=== PATIENT | female | born 1965 | race Caucasian/White ===

== ENCOUNTER 2020-11-19 08:04 | Outpatient (REF) | payer OTHER, SELFPAY ==
[2020-11-19 11:18] LABS: MANUAL DIFF FLAG NO
[2020-11-19 11:25] LABS: Basophils Percent Auto 0.6 % (0-2); Eosinophils Percent Auto 0.6 % (0-4); Hematocrit 41.6 % (37-47); Hemoglobin 13.8 g/dl (12.0-16.0); Lymphocytes Absolute Auto 1.1 X10*3/uL (1.2-4.9); Lymphocytes Percent Auto 33.8 % (20-40); Mean Corpuscular HGB Conc 33.2 g/dl (31.0-35.0); Mean Corpuscular Hemoglobin 29.7 pg (27.0-33.0); Mean Corpuscular Volume 89.5 fL (80-98); Mean Platelet Volume 9.7 fL (9.4-12.3); Monocytes Absolute Auto 0.3 X10*3/uL (0.1-1.2); Monocytes Percent Auto 9.8 % (2-11); Neutrophils Absolute Auto 1.8 X10*3/uL (2.0-8.3); Neutrophils Percent Auto 55.2 % (45-73); Platelet Count 313 X10*3/uL (160-400); Red Blood Count 4.65 X10*6/uL (4.20-5.50); Red Cell Distribution Width 12.7 % (11.0-16.0); White Blood Count 3.3 X10*3/uL (4.8-10.8)
[2020-11-19 11:48] LABS: Alanine Aminotransferase 30 U/L (0-31); Albumin Level 4.5 g/dL (3.5-5.0); Alkaline Phosphatase 91 U/L (39-117); Anion Gap 15 (12-20); Aspartate Amino Transferase 32 U/L (5-31); Bilirubin Total 0.5 mg/dL (0.0-1.0); Blood Urea Nitrogen 9 mg/dL (9-16); Calcium 9.7 mg/dL (8.4-10.2); Carbon Dioxide 25 mmol/L (22-29); Chloride 103 mmol/L (96-108); Estimated Glomerular Filt Rate > 60; Glucose Random 90 mg/dL (60-115); Sodium 139 mmol/L (135-145); Total Protein 8.1 g/dL (6.5-8.0)
== END 2020-11-19 08:05 | disposition home or self-care (01) ==
LOC: HO.HMGCLDS 08:04
PROVIDERS: PCP Internal Medicine; Visit Provider Internal Medicine Medical Oncology
DX: D72.819 Decreased white blood cell count, unspecified (principal)
CPT/HCPCS: 36415; 80053; 85025

== ENCOUNTER 2021-05-23 08:06 | Outpatient (REF) | payer OTHER, SELFPAY ==
[2021-05-23 11:12] LABS: MANUAL DIFF FLAG NO
[2021-05-23 11:42] LABS: Basophils Percent Auto 0.7 % (0-2); Eosinophils Absolute Auto 0.1 X10*3/uL (0.0-0.4); Eosinophils Percent Auto 1.7 % (0-4); Hemoglobin 13.6 g/dl (12.0-16.0); Lymphocytes Percent Auto 34.5 % (20-40); Mean Corpuscular HGB Conc 33.2 g/dl (31.0-35.0); Mean Corpuscular Hemoglobin 29.2 pg (27.0-33.0); Mean Corpuscular Volume 88.2 fL (80-98); Mean Platelet Volume 9.6 fL (9.4-12.3); Monocytes Absolute Auto 0.3 X10*3/uL (0.1-1.2); Monocytes Percent Auto 10.5 % (2-11); Neutrophils Absolute Auto 1.5 X10*3/uL (2.0-8.3); Neutrophils Percent Auto 52.6 % (45-73); Platelet Count 288 X10*3/uL (160-400); Red Blood Count 4.65 X10*6/uL (4.20-5.50); Red Cell Distribution Width 13.1 % (11.0-16.0); White Blood Count 2.9 X10*3/uL (4.8-10.8)
[2021-05-23 11:57] LABS: Alanine Aminotransferase 21 U/L (0-31); Albumin Level 4.4 g/dL (3.5-5.0); Alkaline Phosphatase 84 U/L (39-117); Anion Gap 15 (12-20); Aspartate Amino Transferase 23 U/L (5-31); Bilirubin Total 0.5 mg/dL (0.0-1.0); Blood Urea Nitrogen 9 mg/dL (9-16); Calcium 10.1 mg/dL (8.4-10.2); Carbon Dioxide 22 mmol/L (22-29); Chloride 103 mmol/L (96-108); Estimated Glomerular Filt Rate > 60; Glucose Random 91 mg/dL (60-115); Potassium 4.3 mmol/L (3.3-5.1); Sodium 136 mmol/L (135-145); Total Protein 7.9 g/dL (6.5-8.0)
== END 2021-05-23 08:07 | disposition home or self-care (01) ==
LOC: HO.HMGCLDS 08:06
PROVIDERS: PCP Internal Medicine; Visit Provider Internal Medicine Medical Oncology
DX: D72.819 Decreased white blood cell count, unspecified (principal)
CPT/HCPCS: 36415; 80053; 85025

== ENCOUNTER 2021-08-19 08:08 | Outpatient (REF) | payer OTHER, SELFPAY ==
--- NOTE | ~2021-08-19 | MM_ITS ---
EXAMINATION: MM SCREENING DIGITAL BREAST TOMOSYNTHESIS, BILATERAL CLINICAL INFORMATION: Screening. Asymptomatic. The lifetime risk of breast cancer based on the Tyrer-Cuzick Model is 8%. COMPARISON: Mammography: 08/15/2020, 02/01/2020, 07/25/2019, 07/19/2019 TECHNIQUE: Digital breast tomosynthesis is performed in both the craniocaudal and mediolateral oblique views along with computer-aided detection (CAD). Synthesized 2D images are generated from the tomosynthesis. FINDINGS: The breasts are extremely dense, which lowers the sensitivity of mammography (ACR BI-RADS breast composition Category d). There are no significant masses, abnormal calcifications, or other abnormalities. Parenchymal pattern is similar to prior studies. Again, there are scattered bilateral benign round coarse and vascular calcifications. No significant changes. MM/MM tomosynthesis screening BI IMPRESSION: No mammographic evidence of malignancy. ASSESSMENT: BI-RADS 2: Benign RECOMMENDATION: Routine annual mammography screening. This patient's information was entered into a reminder system with a target due date for their next mammogram.
== END 2021-08-19 08:09 | disposition home or self-care (01) ==
LOC: HO.MAMMO 08:08
PROVIDERS: PCP Internal Medicine; Visit Provider Internal Medicine
DX: Z12.31 Encounter for screening mammogram for malignant neoplasm of breast (principal)
CPT/HCPCS: 77063; 77067

== ENCOUNTER 2021-10-24 06:22 | Outpatient (REF) | payer OTHER, SELFPAY ==
[2021-10-24 11:54] LABS: MANUAL DIFF FLAG NO
[2021-10-24 11:59] LABS: Basophils Percent Auto 0.8 % (0-2); Eosinophils Percent Auto 0.4 % (0-4); Hematocrit 40.9 % (37.0-47.0); Hemoglobin 13.2 g/dl (12.0-16.0); Lymphocytes Absolute Auto 0.9 X10*3/uL (1.2-4.9); Lymphocytes Percent Auto 35.8 % (20-40); Mean Corpuscular HGB Conc 32.3 g/dl (31.0-35.0); Mean Corpuscular Hemoglobin 28.9 pg (27.0-33.0); Mean Corpuscular Volume 89.7 fL (80.0-98.0); Mean Platelet Volume 9.8 fL (9.4-12.3); Monocytes Absolute Auto 0.3 X10*3/uL (0.1-1.2); Monocytes Percent Auto 11.9 % (2-11); Neutrophils Absolute Auto 1.3 x10*3/uL (2.0-8.3); Neutrophils Percent Auto 51.1 % (45-73); Platelet Count 266 X10*3/uL (160-400); Red Blood Count 4.56 X10*6/uL (4.20-5.50); Red Cell Distribution Width 12.6 % (11.0-16.0); White Blood Count 2.6 X10*3/uL (4.8-10.8)
[2021-10-24 12:29] LABS: Thyroid Stimulating Hormone 2.95 uIU/mL (0.32-4.0); Vitamin D 25-OH Total 38.7 ng/mL (>30)
[2021-10-24 12:34] LABS: Alanine Aminotransferase 31 U/L (0-31); Albumin Level 4.3 g/dL (3.5-5.0); Alkaline Phosphatase 71 U/L (39-117); Anion Gap 12 (12-20); Aspartate Amino Transferase 28 U/L (5-31); Bilirubin Total 0.7 mg/dL (0.0-1.0); Blood Urea Nitrogen 11 mg/dL (9-16); Calcium 9.9 mg/dL (8.4-10.2); Carbon Dioxide 25 mmol/L (22-29); Chloride 107 mmol/L (96-108); Cholesterol 226 mg/dL; Estimated Glomerular Filt Rate > 60; Glucose Fasting 86 mg/dL (60-99); HDL Cholesterol 79 mg/dL; LDL Cholesterol Calculated 140 mg/dl; Potassium 4.4 mmol/L (3.3-5.1); Sodium 140 mmol/L (135-145); Total Protein 7.5 g/dL (6.5-8.0); Triglycerides 38 mg/dL
== END 2021-10-24 06:23 | disposition home or self-care (01) ==
LOC: HO.HMGCLDS 06:22
PROVIDERS: PCP Internal Medicine; Visit Provider Internal Medicine
DX: Z00.00 Encounter for general adult medical examination without abnormal findings (principal)
CPT/HCPCS: 36415; 80053; 80061; 82306; 84443; 85025

== ENCOUNTER 2021-11-27 08:11 | Outpatient (REF) | payer OTHER, SELFPAY ==
[2021-11-27 11:08] LABS: MANUAL DIFF FLAG NO
[2021-11-27 11:25] LABS: Basophils Absolute Auto 0.1 X10*3/uL (0.0-0.2); Basophils Percent Auto 1.5 % (0-2); Eosinophils Percent Auto 0.3 % (0-4); Hemoglobin 13.5 g/dl (12.0-16.0); Imm Gran Abs Auto 0.01 X10*3/uL (0.00-0.03); Imm Gran Pct Auto 0.3 % (0.0-0.4); Lymphocytes Absolute Auto 1.7 X10*3/uL (1.2-4.9); Lymphocytes Percent Auto 51.9 % (20-40); Mean Corpuscular HGB Conc 32.9 g/dl (31.0-35.0); Mean Corpuscular Hemoglobin 29.2 pg (27.0-33.0); Mean Corpuscular Volume 88.6 fL (80.0-98.0); Mean Platelet Volume 9.4 fL (9.4-12.3); Monocytes Absolute Auto 0.4 X10*3/uL (0.1-1.2); Monocytes Percent Auto 11.6 % (2-11); Neutrophils Absolute Auto 1.2 x10*3/uL (2.0-8.3); Neutrophils Percent Auto 34.4 % (45-73); Platelet Count 327 X10*3/uL (160-400); Red Blood Count 4.63 X10*6/uL (4.20-5.50); Red Cell Distribution Width 12.6 % (11.0-16.0); White Blood Count 3.4 X10*3/uL (4.8-10.8)
== END 2021-11-27 08:12 | disposition home or self-care (01) ==
LOC: HO.HMGCLDS 08:11
PROVIDERS: PCP Internal Medicine; Visit Provider Internal Medicine Medical Oncology
DX: D72.819 Decreased white blood cell count, unspecified (principal)
CPT/HCPCS: 36415; 85025

== ENCOUNTER → 2021-12-25 08:15 | Outpatient (REF) | payer OTHER, SELFPAY ==
--- NOTE | 2021-12-25 08:19 | CA_ITS ---
Transthoracic Echocardiogram Patient (Last, First, Middle): Zhanna Carter E Gender: Female Date of : 1965 Age: 56 Procedure Date: 12/25/2021 Procedure Type: Transthoracic Echocardiogram Location: OP Height: 172.72 cm Weight: 63.5 kg BSA: 1.76 m2 Heart Rate: bpm BP: 126 / 80 mmHg Nutritional Assistant: MAYKEL Referring MD: Jose Montgomery MD Symptoms: R42 DIZZINESS R00.2 PALPITATIONS Study Quality: Good ECG Rhythm: Sinus Conclusions: - The left ventricular systolic function is normal. The calculated ejection fraction is 71% by biplane method. - No obvious valvular pathology seen on this study. Findings Left Ventricle Normal left ventricular cavity size. There is normal left ventricular wall thickness. The left ventricular systolic function is normal. The calculated ejection fraction is 71% by biplane method. There is no evidence of regional wall motion abnormalities. Diastolic function is normal for age. Right Ventricle Normal right ventricular cavity size and systolic function. Atria Both atria are normal in size. Aortic Valve There is a normal trileaflet aortic valve. There is no aortic valve stenosis. There is trace (trivial) aortic valve regurgitation. Mitral Valve There is moderate mitral annular calcification. There is trace mitral valve regurgitation. There is no mitral valve stenosis. Pulmonic Valve The pulmonic valve was not well visualized. Tricuspid Valve There is trace tricuspid valve regurgitation. The pulmonary artery systolic pressure is normal. Great Vessels The aortic annulus, sinuses of valsalva, and asc aorta are normal in size. Venous The inferior vena cava is normal in size and collapses greater than 50% with inspiration. Pericardium/Pleural There is no evidence of pericardial effusion. Prior Study Comparison No prior study available for comparison. Recommendations, Care & Conclusions No obvious valvular pathology seen on this study. Measurements 2D Linear Measurements IVSd: 0.77 0.6-0.9/0.6-1.0 cm LVIDd: 4.25 3.9-5.3/4.2-5.9 cm LVIDd Index: 2.41 2.4-3.2/2.2-3.1 cm/m2 LVIDs: 2.75 2.0-3.6 cm LVPWd: 0.68 0.7-1.1 cm LA Diam: 2.80 2.7-3.8/3.0-4.0 cm LAIDs Index: 1.59 1.5-2.3 cm/m2 LV Mass: 113.27 67-162/88-224 g LV Mass Index: 64.36 43-95/49-115 g/m2 LVOT Diam: 2.00 3.0+(-)1.3 cm 2D Systolic Function EF 4C: 71.40 >55% EF 2C: 70.20 >55% EF BiP: 70.60 >55% Mitral Valve MV Pk E: 0.61 MV PK A: 0.91 MV Decel Time: 122.00 E/A: 0.70 E'Lateral: 11.10 E'Medial: 9.68 E/E' Med: 6.30 E/E' Lat: 5.50 PHT: 36.00 MVA PHT: 6.11 Decel Motley: 4.97 Aortic Valve AoV Pk Flaquito: 1.40 AoV Pk Grad: 8.00 LVOT LVOT Pk Flaquito: 1.34 LVOT Mn Flaquito: 0.91 LVOT VTI: 0.29 LVOT Pk Grad: 7.00 LVOT Mn Grad: 4.00 LVOT Diam: 2.00 LVOT Area: 3.14 Diastolic Function MV Pk E: 0.61 MV Pk A: 0.91 E/A: 0.70 E'Medial: 9.68 E/E' Med: 6.30 E' Laterial: 11.10 E/E' Lat: 5.50 Right Ventricle TAPSE (mm): 2.30 TVS' Flaquito: 14.00 Tricuspid Valve TR Pk Flaquito: 2.35 TR Pk Grad: 22.00 RA Press: 3.00 RVSP: 25.00 Great Vessels Aorta Ao Asc: 2.80 2.1-3.4 cm Updated in Other Vendor System with Status of Final Eliseo Portillo MD electronically signed on 12/27/2021 11:44:31 AM with status of Final
== END ==
LOC: HO.CARD 08:15
PROVIDERS: PCP Internal Medicine; Visit Provider Internal Medicine
DX: R42 Dizziness and giddiness (principal)
CPT/HCPCS: 93306

== ENCOUNTER 2022-05-27 06:36 | Outpatient (REF) | payer OTHER, SELFPAY ==
[2022-05-27 11:29] LABS: MANUAL DIFF FLAG NO
[2022-05-27 11:39] LABS: Basophils Percent Auto 0.8 % (0-2); Eosinophils Percent Auto 0.8 % (0-4); Hematocrit 40.4 % (37.0-47.0); Imm Gran Abs Auto 0.01 X10*3/uL (0.00-0.03); Imm Gran Pct Auto 0.4 % (0.0-0.4); Lymphocytes Absolute Auto 0.8 X10*3/uL (1.2-4.9); Lymphocytes Percent Auto 31.1 % (20-40); Mean Corpuscular HGB Conc 32.2 g/dl (31.0-35.0); Mean Corpuscular Hemoglobin 28.5 pg (27.0-33.0); Mean Corpuscular Volume 88.6 fL (80.0-98.0); Mean Platelet Volume 9.7 fL (9.4-12.3); Monocytes Absolute Auto 0.3 X10*3/uL (0.1-1.2); Monocytes Percent Auto 11.7 % (2-11); Neutrophils Absolute Auto 1.4 x10*3/uL (2.0-8.3); Neutrophils Percent Auto 55.2 % (45-73); Platelet Count 274 X10*3/uL (160-400); Red Blood Count 4.56 X10*6/uL (4.20-5.50); Red Cell Distribution Width 12.8 % (11.0-16.0); White Blood Count 2.6 X10*3/uL (4.8-10.8)
[2022-05-27 12:39] LABS: Alanine Aminotransferase 20 U/L (0-31); Albumin Level 4.3 g/dL (3.5-5.0); Alkaline Phosphatase 70 U/L (39-117); Anion Gap 12 (12-20); Aspartate Amino Transferase 22 U/L (5-31); Bilirubin Total 0.5 mg/dL (0.0-1.0); Blood Urea Nitrogen 12 mg/dL (9-16); Calcium 9.7 mg/dL (8.4-10.2); Carbon Dioxide 26 mmol/L (22-29); Chloride 104 mmol/L (96-108); Estimated Glomerular Filt Rate > 60; Glucose Random 83 mg/dL (60-115); Potassium 4.6 mmol/L (3.3-5.1); Sodium 137 mmol/L (135-145); Total Protein 7.6 g/dL (6.5-8.0)
== END 2022-05-27 06:37 | disposition home or self-care (01) ==
LOC: HO.HMGCLDS 06:36
PROVIDERS: Visit Provider Internal Medicine Medical Oncology
DX: D72.819 Decreased white blood cell count, unspecified (principal)
CPT/HCPCS: 36415; 80053; 85025

== ENCOUNTER 2022-08-21 08:07 | Outpatient (REF) | payer OTHER, SELFPAY ==
--- NOTE | ~2022-08-21 | MM_ITS ---
EXAMINATION: MM SCREENING DIGITAL BREAST TOMOSYNTHESIS, BILATERAL CLINICAL INFORMATION: Screening. Asymptomatic. The lifetime risk of breast cancer based on the Tyrer-Cuzick Model is 8%. COMPARISON: Mammography: 08/19/2021, 08/15/2020, 02/01/2020, 07/25/2019, 07/19/2019 TECHNIQUE: Digital breast tomosynthesis is performed in both the craniocaudal and mediolateral oblique views along with computer-aided detection (CAD). Synthesized 2D images are generated from the tomosynthesis. Additional left MLO view is provided. FINDINGS: The breasts are extremely dense, which lowers the sensitivity of mammography (ACR BI-RADS breast composition Category d). There are no significant masses, abnormal calcifications, or other abnormalities. There is no developing density or interval architectural abnormality. Scattered bilateral vascular, round, coarse calcifications are again seen. The axilla are unremarkable. No significant changes. MM/MM tomosynthesis screening BI IMPRESSION: No mammographic evidence of malignancy. ASSESSMENT: BI-RADS 2: Benign RECOMMENDATION: Routine annual mammography screening. This patient's information was entered into a reminder system with a target due date for their next mammogram.
== END 2022-08-21 08:08 | disposition home or self-care (01) ==
LOC: HO.MAMMO 08:07
PROVIDERS: PCP Internal Medicine; Visit Provider Internal Medicine
DX: Z12.31 Encounter for screening mammogram for malignant neoplasm of breast (principal)
CPT/HCPCS: 77063; 77067

== ENCOUNTER 2022-10-29 06:31 | Outpatient (REF) | payer OTHER, SELFPAY ==
[2022-10-29 11:47] LABS: Cholesterol 209 mg/dL; HDL Cholesterol 73 mg/dL; LDL Cholesterol Calculated 126 mg/dl; Triglycerides 51 mg/dL
[2022-10-29 12:03] LABS: Vitamin D 25-OH Total 47.1 ng/mL (>30)
== END 2022-10-29 06:32 | disposition home or self-care (01) ==
LOC: HO.HMGCLDS 06:31
PROVIDERS: PCP Internal Medicine; Visit Provider Internal Medicine
DX: E55.9 Vitamin D deficiency, unspecified (principal); E78.00 Pure hypercholesterolemia, unspecified; I10 Essential (primary) hypertension
CPT/HCPCS: 36415; 80061; 82306

== ENCOUNTER 2022-12-01 09:24 | Outpatient (REF) | payer OTHER, SELFPAY ==
[2022-12-01 10:35] LABS: MANUAL DIFF FLAG NO
[2022-12-01 10:40] LABS: Basophils Percent Auto 1.3 % (0-2); Eosinophils Percent Auto 0.9 % (0-4); Hematocrit 39.7 % (37.0-47.0); Hemoglobin 13.1 g/dl (12.0-16.0); Imm Gran Abs Auto 0.01 X10*3/uL (0.00-0.03); Imm Gran Pct Auto 0.3 % (0.0-0.4); Lymphocytes Absolute Auto 0.8 X10*3/uL (1.2-4.9); Lymphocytes Percent Auto 25.3 % (20-40); Mean Corpuscular Hemoglobin 28.9 pg (27.0-33.0); Mean Corpuscular Volume 87.4 fL (80.0-98.0); Mean Platelet Volume 9.2 fL (9.4-12.3); Monocytes Absolute Auto 0.3 X10*3/uL (0.1-1.2); Monocytes Percent Auto 8.8 % (2-11); Neutrophils Percent Auto 63.4 % (45-73); Platelet Count 289 X10*3/uL (160-400); Red Blood Count 4.54 X10*6/uL (4.20-5.50); Red Cell Distribution Width 12.7 % (11.0-16.0); White Blood Count 3.2 X10*3/uL (4.8-10.8)
[2022-12-01 11:39] LABS: Alanine Aminotransferase 31 U/L (0-31); Albumin Level 4.3 g/dL (3.5-5.0); Alkaline Phosphatase 71 U/L (39-117); Anion Gap 10 (12-20); Aspartate Amino Transferase 27 U/L (5-31); Bilirubin Total 0.4 mg/dL (0.0-1.0); Blood Urea Nitrogen 11 mg/dL (9-16); Calcium 10.1 mg/dL (8.4-10.2); Carbon Dioxide 27 mmol/L (22-29); Chloride 103 mmol/L (96-108); Estimated Glomerular Filt Rate > 60; Glucose Random 99 mg/dL (60-115); Potassium 4.3 mmol/L (3.3-5.1); Sodium 136 mmol/L (135-145); Total Protein 7.6 g/dL (6.5-8.0)
== END 2022-12-01 09:25 | disposition home or self-care (01) ==
LOC: HO.10HDL 09:24
PROVIDERS: Visit Provider Internal Medicine Medical Oncology
DX: D72.819 Decreased white blood cell count, unspecified (principal)
CPT/HCPCS: 36415; 80053; 85025

== ENCOUNTER 2023-03-15 06:44 | Day surgery (SDC) | payer OTHER, SELFPAY ==
[2023-03-15 06:46] VITALS: BMI 21.2
[2023-03-15 06:48] VITALS: BP 152/77; PULSE 102; RESP 16; TEMP 36.3; O2SAT 99
--- NOTE | 2023-03-15 07:35 | P.CONAN_ITS ---
HPI - Anesthesia Eval Consult details Narrative: for screening [facility], [facility] Past Medical History Medical History (Updated 03/12/23 @ 13:38 by Sheela Nieves RN) HTN (hypertension) Family History Family history of problems with anesthesia: No Surgical History History of Problems with Anesthesia: No Social History Social History Patient Tobacco Use Status: Never used Tobacco Use of substances other than those prescribed or required for medical reasons: No Advance Directives: No Advance Directives Information Provided: Yes Meds Allergies Allergy/AdvReac Type Severity Reaction Status Date / Time No Known Allergies Allergy Unverified 08/08/20 14:44 Active Medications: Current Medications Sodium Biphosphate/Sodium Phosphate (Sodium Phosphate,Hidalgo-Dibasic 133 Ml Enema) 133 ml VT ONCE PRN PRN Reason: Poor Colonoscopy Prep Results Home Medications Medication Instructions Recorded Confirmed Last Taken Type amlodipine 2.5 mg tablet 2.5 mg PO DAILY 03/12/23 03/12/23 Unknown History Exam Exam Date and Time: March 15, 2023 0735 Height,Weight and Vital Signs: Height 5 ft 8 in Weight 63.503 kg Last Vital Signs Temp 97.3 F 03/15/23 06:48 Pulse 102 H 03/15/23 06:48 Resp 16 03/15/23 06:48 BP 152/77 H 03/15/23 06:48 Pulse Ox 99 03/15/23 06:48 O2 Del Method Room Air 03/15/23 06:48 Airway Mallampati Class: II TM Dist: >3cm Neck ROM: Full Heart: rrr Lungs: cta Assessment and Plan Assessment Anesthesia Assessment: Anesthesia Plan Discussed and Chart Reviewed Final Anesthetic Review Family History of Problems with Anesthesia: No History of Problems with Anesthesia: No NPO: Yes ASA Class: II Final Preanesthetic Review: No Changes in Pt Med Stat, Meds/Allgs Chart Reviewed, Consent Obtained/Reviewed and Anes Risks/Benef Reviewed Patient Risk: Low Procedure Risk: Low Anesthetic Plan Anesthetic Plan: MAC: Disposition: Standard PACU
--- NOTE | 2023-03-15 08:33 | P.BOP_ITS ---
Brief Operative Note Date of Service: 03/15/23 Pre-op diagnosis: Screening Post-op diagnosis: other (Colon polyp) Procedure: Colonoscopy to the cecum and TI with biopsy and removal of polyp Surgeon: Anderson Mccall Anesthesia: MAC Was an [employer] used for this Procedure?: No Estimated blood loss (mL): 2.0 Pathology: other (A. Ascending colon polyp) Condition: stable Disposition: PACU
[2023-03-15 08:34] VITALS: BP 114/73; PULSE 84; RESP 17; TEMP 36.6; O2SAT 100
[2023-03-15 08:49] VITALS: BP 124/80; PULSE 77; RESP 16; TEMP 36.6; O2SAT 97
--- NOTE | 2023-03-15 10:11 | OP_ITS ---
DATE OF SERVICE: 03/15/2023 SURGEON: Anderson Mccall MD INDICATIONS: The patient presents for evaluation of colorectal cancer screening. Full consent has been obtained from her for this, including risks of bleeding and perforation. PREOPERATIVE DIAGNOSIS: Colorectal cancer screening. POSTOPERATIVE DIAGNOSIS: PROCEDURE PERFORMED: Colonoscopy to the cecum and terminal ileum with biopsy and removal of polyp ESTIMATED BLOOD LOSS: COMPLICATIONS: ANESTHESIA: Monitored anesthesia care. ASSISTANTS: SPECIMENS: POSTOPERATIVE DIAGNOSES: Colorectal cancer screening, small colon polyp, sigmoid diverticulosis and internal hemorrhoids. DESCRIPTION OF PROCEDURE: The patient was placed in the left lateral decubitus position. The digital rectal exam revealed no abnormalities. The Olympus video pediatric colonoscope was entered into the rectum and advanced to the cecum. Advancement past the sigmoid colon was somewhat difficult. Once in the cecum, I did identify normal-appearing cecal pouch with appendiceal orifice and a normal-appearing ileocecal valve. The terminal ileum was cannulated and appeared normal. The scope was withdrawn back in the colon. The entire cecum and ileocecal valve appeared normal. There was transillumination of light deep in the right lower quadrant. The scope was then slowly withdrawn assessing all mucosal surfaces carefully. Preparation was excellent. In the ascending colon was a 3 mm polyp which was biopsied and completely removed with cold biopsy forceps. I did not visualize any other polyps, colitis, nor angiodysplasia. There was a mild amount of sigmoid diverticulosis. In the rectum, the scope was retroflexed visualizing internal hemorrhoids, but no other pathology. The rectal mucosa appeared normal. The scope was straightened out and withdrawn from the patient. She tolerated the procedure well and was returned to the recovery area in stable condition. IMPRESSION: 1. Small colon polyp. 2. Sigmoid diverticulosis. 3. Internal hemorrhoids. PLAN: The results of the pathology will be checked. If this is a tubular adenoma, I would recommend a followup coloscopy in 5 years. If it is only hyperplastic, I recommend followup colonoscopy in 10 years. She will otherwise see me on a p.r.n. basis. MD MELISSA Jones/KHOI / [id number]
== END 2023-03-15 09:27 | disposition home or self-care (01) ==
PROVIDERS: PCP Internal Medicine; Visit Provider Internal Medicine
PROC: 0DJD8ZZ Inspection of Lower Intestinal Tract, Via Natural or Artificial Opening Endoscopic (ICD-10-PCS; CPT 45378; principal; 2023-03-15 07:30)
DX: Z12.11 Encounter for screening for malignant neoplasm of colon (principal); K63.5 Polyp of colon; K57.30 Diverticulosis of large intestine without perforation or abscess without bleeding; K64.8 Other hemorrhoids; K59.00 Constipation, unspecified; I10 Essential (primary) hypertension; Z79.899 Other long term (current) drug therapy
CPT/HCPCS: 45380; 88305; J2250

== ENCOUNTER 2023-07-20 07:00 | Outpatient (REF) | payer OTHER, SELFPAY ==
[2023-07-20 11:31] LABS: MANUAL DIFF FLAG NO
[2023-07-20 12:00] LABS: Basophils Percent Auto 0.8 % (0-2); Hemoglobin 12.2 g/dl (12.0-16.0); Lymphocytes Absolute Auto 0.7 X10*3/uL (1.2-4.9); Lymphocytes Percent Auto 27.8 % (20-40); Mean Corpuscular HGB Conc 32.1 g/dl (31.0-35.0); Mean Corpuscular Hemoglobin 28.6 pg (27.0-33.0); Mean Corpuscular Volume 89.2 fL (80.0-98.0); Mean Platelet Volume 8.9 fL (9.4-12.3); Monocytes Absolute Auto 0.5 X10*3/uL (0.1-1.2); Monocytes Percent Auto 17.4 % (2-11); Neutrophils Absolute Auto 1.4 x10*3/uL (2.0-8.3); Platelet Count 402 X10*3/uL (160-400); Red Blood Count 4.26 X10*6/uL (4.20-5.50); Red Cell Distribution Width 13.8 % (11.0-16.0); White Blood Count 2.6 X10*3/uL (4.8-10.8)
[2023-07-20 12:19] LABS: Alanine Aminotransferase 68 U/L (0-31); Albumin Level 4.1 g/dL (3.5-5.0); Alkaline Phosphatase 71 U/L (39-117); Anion Gap 11 (12-20); Aspartate Amino Transferase 37 U/L (5-31); Bilirubin Total 0.6 mg/dL (0.0-1.0); Blood Urea Nitrogen 10 mg/dL (9-16); Calcium 9.7 mg/dL (8.4-10.2); Carbon Dioxide 24 mmol/L (22-29); Chloride 105 mmol/L (96-108); Estimated Glomerular Filt Rate > 60; Glucose Random 83 mg/dL (60-115); Potassium 4.6 mmol/L (3.3-5.1); Sodium 135 mmol/L (135-145); Total Protein 7.4 g/dL (6.5-8.0)
== END 2023-07-20 07:01 | disposition home or self-care (01) ==
LOC: HO.HMGCLDS 07:00
PROVIDERS: PCP Internal Medicine; Visit Provider Internal Medicine Medical Oncology
DX: D72.819 Decreased white blood cell count, unspecified (principal)
CPT/HCPCS: 36415; 80053; 85025

== ENCOUNTER 2023-08-23 08:04 | Outpatient (REF) | payer OTHER, SELFPAY ==
--- NOTE | ~2023-08-23 | MM_ITS ---
EXAMINATION: MM SCREENING DIGITAL BREAST TOMOSYNTHESIS, BILATERAL CLINICAL INFORMATION: Screening. Asymptomatic. COMPARISON: Mammography: 08/21/2022, 08/19/2021, 08/15/2020, 02/01/2020, 07/25/2019, 07/19/2019 TECHNIQUE: Digital breast tomosynthesis is performed in both the craniocaudal and mediolateral oblique views along with computer-aided detection (CAD). Synthesized 2D images are generated from the tomosynthesis. FINDINGS: The breasts are extremely dense, which lowers the sensitivity of mammography (ACR BI-RADS breast composition Category d). There are benign vascular and benign scattered dystrophic calcifications in both breasts right greater than left. None of these is undergone suspicious or aggressive change. No developing masses, or developing regions of parenchymal distortion. MM/MM tomosynthesis screening BI IMPRESSION: No mammographic evidence of malignancy. Stable benign findings. ASSESSMENT: BI-RADS BI-RADS 2 - Benign Findings RECOMMENDATION: Routine annual mammography screening. 1 year F/U This examination should not preclude the clinical evaluation of a suspicious palpable abnormality. This patient's information was entered into a reminder system with a target due date for their next mammogram.
== END 2023-08-23 08:05 | disposition home or self-care (01) ==
LOC: HO.MAMMO 08:04
PROVIDERS: PCP Internal Medicine; Visit Provider Internal Medicine
DX: Z12.31 Encounter for screening mammogram for malignant neoplasm of breast (principal)
CPT/HCPCS: 77063; 77067

== ENCOUNTER → 2023-08-23 08:15 | Outpatient (BNV) | payer OTHER, SELFPAY | PROVIDERS: PCP Internal Medicine; Visit Provider Radiology Diagnostic Radiology | DX: Z12.31 Encounter for screening mammogram for malignant neoplasm of breast (principal) | CPT/HCPCS: 77063; 77067 ==

== ENCOUNTER 2023-12-09 06:31 | Outpatient (REF) | payer OTHER, SELFPAY ==
[2023-12-09 08:15] LABS: Alanine Aminotransferase 45 U/L (0-31); Albumin Level 4.1 g/dL (3.5-5.0); Alkaline Phosphatase 71 U/L (39-117); Anion Gap 11 (12-20); Aspartate Amino Transferase 42 U/L (5-31); Bilirubin Total 0.4 mg/dL (0.0-1.0); Blood Urea Nitrogen 12 mg/dL (9-16); Calcium 9.9 mg/dL (8.4-10.2); Carbon Dioxide 26 mmol/L (22-29); Chloride 103 mmol/L (96-108); Cholesterol 218 mg/dL (<200); Estimated Glomerular Filt Rate > 60; Glucose Fasting 92 mg/dL (60-99); HDL Cholesterol 61 mg/dL (>40); LDL Cholesterol Calculated 146 mg/dL (<100); Potassium 4.1 mmol/L (3.3-5.1); Sodium 136 mmol/L (135-145); Total Protein 7.9 g/dL (6.5-8.0); Triglycerides 55 mg/dL (<150)
== END 2023-12-09 06:32 | disposition home or self-care (01) ==
LOC: HO.LAB 06:31
PROVIDERS: PCP Internal Medicine; Visit Provider Internal Medicine
DX: E78.00 Pure hypercholesterolemia, unspecified (principal); I10 Essential (primary) hypertension
CPT/HCPCS: 36415; 80053; 80061

== ENCOUNTER 2024-01-18 06:12 | Outpatient (REF) | payer OTHER, SELFPAY ==
[2024-01-18 10:37] LABS: Basophils Percent Auto 0.5 % (0-2); Eosinophils Percent Auto 1.1 % (0-4); Hematocrit 41.4 % (37.0-47.0); Hemoglobin 13.5 g/dl (12.0-16.0); Lymphocytes Absolute Auto 0.6 X10*3/uL (1.2-4.9); MANUAL DIFF FLAG SCAN; Mean Corpuscular HGB Conc 32.6 g/dl (31.0-35.0); Mean Corpuscular Hemoglobin 28.7 pg (27.0-33.0); Mean Corpuscular Volume 88.1 fL (80.0-98.0); Mean Platelet Volume 9.6 fL (9.4-12.3); Monocytes Absolute Auto 0.3 X10*3/uL (0.1-1.2); Monocytes Percent Auto 13.5 % (2-11); Neutrophils Percent Auto 51.9 % (45-73); Platelet Count 262 X10*3/uL (160-400); Red Cell Distribution Width 12.8 % (11.0-16.0); SCAN SMEAR FLAG 1
[2024-01-18 10:38] LABS: White Blood Count 1.9 X10*3/uL (4.8-10.8)
[2024-01-18 11:09] LABS: SLIDE REVIEW VERIFIED
[2024-01-18 11:22] LABS: Alanine Aminotransferase 48 U/L (0-31); Albumin Level 4.1 g/dL (3.5-5.0); Alkaline Phosphatase 67 U/L (39-117); Anion Gap 11 (12-20); Aspartate Amino Transferase 38 U/L (5-31); Bilirubin Total 0.5 mg/dL (0.0-1.0); Blood Urea Nitrogen 11 mg/dL (9-16); Calcium 9.8 mg/dL (8.4-10.2); Carbon Dioxide 26 mmol/L (22-29); Chloride 103 mmol/L (96-108); Estimated Glomerular Filt Rate > 60; Glucose Random 82 mg/dL (60-115); Potassium 4.2 mmol/L (3.3-5.1); Sodium 136 mmol/L (135-145); Total Protein 7.8 g/dL (6.5-8.0)
== END 2024-01-18 06:13 | disposition home or self-care (01) ==
LOC: HO.HMGCLDS 06:12
PROVIDERS: PCP Internal Medicine; Visit Provider Internal Medicine Medical Oncology
DX: D72.818 Other decreased white blood cell count (principal)
CPT/HCPCS: 36415; 80053; 85025

== ENCOUNTER 2024-02-11 08:16 | Outpatient (REF) | payer OTHER, SELFPAY ==
--- NOTE | ~2024-02-11 | US_ITS ---
EXAMINATION: US ABDOMEN COMPLETE CLINICAL INFORMATION: Splenomegaly. COMPARISON: Ultrasound abdomen 10/23/2015. TECHNIQUE: Real-time imaging of the abdominal viscera. FINDINGS: PANCREAS: Normal. ABDOMINAL AORTA: The proximal, mid, and distal segments are normal in caliber. INFERIOR VENA CAVA: Visualized portions are normal. LIVER: Normal size, contour and echotexture. No evidence of focal liver lesion or intrahepatic ductal dilatation. GALLBLADDER: Normal. The gallbladder is physiologically distended without evidence of stones, sludge, polyps, wall thickening or pericholecystic fluid. COMMON BILE DUCT: Normal in caliber measuring 0.5 cm in diameter. RIGHT KIDNEY: Normal. No hydronephrosis. No renal calculi or focal parenchymal lesions. The kidney measures 11.6 cm in maximum dimension. LEFT KIDNEY: Normal. No hydronephrosis. No renal calculi or focal parenchymal lesions. The kidney measures 11.2 cm in maximum dimension. SPLEEN: Normal. The spleen measures 10.3 cm in maximum dimension. FREE FLUID: None. US/US abdomen complete IMPRESSION: Normal ultrasound examination of the abdomen. No evidence of splenomegaly.
== END 2024-02-11 08:17 | disposition home or self-care (01) ==
LOC: HO.US 08:16
PROVIDERS: PCP Internal Medicine; Visit Provider Internal Medicine Medical Oncology
DX: D72.819 Decreased white blood cell count, unspecified (principal); Z86.2 Personal history of diseases of the blood and blood-forming organs and certain disorders involving the immune mechanism
CPT/HCPCS: 76700

== ENCOUNTER 2024-02-28 10:31 | Outpatient (REF) | payer OTHER, SELFPAY ==
[2024-02-28 13:33] LABS: C Reactive Protein < 0.10 mg/dL (< or = 0.50)
[2024-02-28 13:59] LABS: Erythrocyte Sedimentation Rate 11 MM/HR (0-20)
== END 2024-02-28 10:32 | disposition home or self-care (01) ==
LOC: HO.10HDL 10:31
PROVIDERS: Visit Provider Internal Medicine
DX: M79.10 Myalgia, unspecified site (principal); I73.00 Raynaud's syndrome without gangrene; L93.0 Discoid lupus erythematosus
CPT/HCPCS: 36415; 82550; 85652; 86140

== ENCOUNTER 2024-03-21 06:54 | Outpatient (REF) | payer OTHER, SELFPAY ==
[2024-03-21 10:38] LABS: Eosinophils Percent Auto 0.5 % (0-4); Hematocrit 38.5 % (37.0-47.0); Hemoglobin 12.9 g/dl (12.0-16.0); Lymphocytes Absolute Auto 0.6 X10*3/uL (1.2-4.9); Lymphocytes Percent Auto 28.8 % (20-40); MANUAL DIFF FLAG SCAN; Mean Corpuscular HGB Conc 33.5 g/dl (31.0-35.0); Mean Corpuscular Hemoglobin 29.5 pg (27.0-33.0); Mean Corpuscular Volume 87.9 fL (80.0-98.0); Mean Platelet Volume 9.8 fL (9.4-12.3); Monocytes Absolute Auto 0.3 X10*3/uL (0.1-1.2); Monocytes Percent Auto 15.2 % (2-11); Neutrophils Percent Auto 54.5 % (45-73); Platelet Count 245 X10*3/uL (160-400); Red Blood Count 4.38 X10*6/uL (4.20-5.50); Red Cell Distribution Width 13.2 % (11.0-16.0); SCAN SMEAR FLAG 1
[2024-03-21 10:40] LABS: White Blood Count 1.9 X10*3/uL (4.8-10.8)
[2024-03-21 11:04] LABS: Alanine Aminotransferase 38 U/L (0-31); Alkaline Phosphatase 62 U/L (39-117); Anion Gap 13 (12-20); Aspartate Amino Transferase 32 U/L (5-31); Bilirubin Total 0.5 mg/dL (0.0-1.0); Blood Urea Nitrogen 9 mg/dL (9-16); Calcium 9.9 mg/dL (8.4-10.2); Carbon Dioxide 23 mmol/L (22-29); Chloride 104 mmol/L (96-108); Estimated Glomerular Filt Rate > 60; Gamma Glutamyl Transpeptidase 19 U/L (7-33); Glucose Random 87 mg/dL (60-115); Potassium 4.2 mmol/L (3.3-5.1); Sodium 136 mmol/L (135-145); Total Protein 7.6 g/dL (6.5-8.0)
[2024-03-21 11:23] LABS: SLIDE REVIEW VERIFIED
[2024-03-21 16:41] LABS: Folate 8.7 ng/mL (> or = 4.0); Vitamin B12 294 pg/mL (200-900)
== END 2024-03-21 06:55 | disposition home or self-care (01) ==
LOC: HO.HMGCLDS 06:54
PROVIDERS: PCP Internal Medicine; Visit Provider Internal Medicine Medical Oncology
DX: Z86.2 Personal history of diseases of the blood and blood-forming organs and certain disorders involving the immune mechanism (principal); R16.1 Splenomegaly, not elsewhere classified; D72.819 Decreased white blood cell count, unspecified
CPT/HCPCS: 36415; 80053; 82607; 82746; 82977; 85025

== ENCOUNTER → 2024-03-24 13:41 | Outpatient (REF) | payer OTHER, SELFPAY ==
--- NOTE | 2024-03-24 13:58 | CA_ITS ---
Transthoracic Echocardiogram Patient (Last, First, Middle): Zhanna Carter E Gender: Female Date of : 1965 Age: 58 Procedure Date: 03/24/2024 Procedure Type: Transthoracic Echocardiogram Location: OP Height: 172.72 cm Weight: 63.5 kg BSA: 1.76 m2 Heart Rate: bpm BP: 128 / 60 mmHg Supervisor Dry Paste: Referring MD: Jose Montgomery MD Symptoms: NONRHEUMATIC MITRAL VALVE INSUFFICIENCY Study Quality: Good ECG Rhythm: Sinus Conclusions: - The left ventricular systolic function is normal. The calculated ejection fraction is 63% by biplane method. - There is mild mitral annular calcification. - No obvious valvular pathology seen on this study. Findings Left Ventricle Normal left ventricular cavity size. There is mildly increased left ventricular wall thickness. The left ventricular systolic function is normal. The calculated ejection fraction is 63% by biplane method. There is no evidence of regional wall motion abnormalities. Diastolic function is normal for age. Right Ventricle Normal right ventricular cavity size and systolic function. Atria The left atrium is mildly dilated. The right atrium is normal in size. Aortic Valve There is a normal trileaflet aortic valve. There is no aortic valve stenosis. There is trace (trivial) aortic valve regurgitation. Mitral Valve There is mild mitral annular calcification. There is trace mitral valve regurgitation. There is no mitral valve stenosis. Pulmonic Valve The pulmonic valve is likely normal. Tricuspid Valve Normal tricuspid valve structure. There is mild tricuspid valve regurgitation. There is no evidence of pulmonary hypertension. Great Vessels The asc aorta is normal in size. Venous The inferior vena cava is normal in size and collapses less than 50% with inspiration. Pericardium/Pleural There is no evidence of pericardial effusion. Prior Study Comparison No significant change compared to prior study dated: 12/25/2021. Recommendations, Care & Conclusions No obvious valvular pathology seen on this study. Measurements 2D Linear Measurements IVSd: 1.12 0.6-0.9/0.6-1.0 cm LVIDd: 3.23 3.9-5.3/4.2-5.9 cm LVIDd Index: 1.84 2.4-3.2/2.2-3.1 cm/m2 LVIDs: 1.78 2.0-3.6 cm LVPWd: 1.04 0.7-1.1 cm Ao Root: 2.60 2.1-3.5 cm LA Diam: 3.30 2.7-3.8/3.0-4.0 cm LAIDs Index: 1.88 1.5-2.3 cm/m2 LV Mass: 127.81 67-162/88-224 g LV Mass Index: 72.62 43-95/49-115 g/m2 LVOT Diam: 2.10 3.0+(-)1.3 cm 2D Systolic Function EF 4C: 66.60 >55% EF 2C: 60.80 >55% EF BiP: 63.20 >55% Mitral Valve MV VTI: 0.27 MV Pk Flaquito: 1.03 MV Mn Flaquito: 0.61 MV Pk Grad: 4.00 MV Mn Grad: 2.00 MV Pk E: 0.72 MV PK A: 0.91 MV Decel Time: 116.00 E/A: 0.80 E'Lateral: 7.51 E'Medial: 7.83 E/E' Med: 9.10 E/E' Lat: 9.50 PHT: 34.00 MVA PHT: 6.47 MVA Continuity: 3.36 Decel [place]bury: 6.16 Aortic Valve AoV Pk Flaquito: 1.48 AoV Mn Flaquito: 0.99 AoV VTI: 0.37 AoV Pk Grad: 9.00 Aov Mn Grad: 5.00 NELA Cont.VTI: 2.41 LVOT LVOT Pk Flaquito: 1.17 LVOT Mn Flaquito: 0.77 LVOT VTI: 0.26 LVOT Pk Grad: 5.00 LVOT Mn Grad: 3.00 LVOT Diam: 2.10 LVOT Area: 3.46 Diastolic Function MV Pk E: 0.72 MV Pk A: 0.91 E/A: 0.80 E'Medial: 7.83 E/E' Med: 9.10 E' Laterial: 7.51 E/E' Lat: 9.50 Right Ventricle TAPSE (mm): 28.00 TVS' Flaquito: 15.00 Tricuspid Valve TR Pk Flaquito: 2.28 TR Pk Grad: 21.00 RA Press: 3.00 RVSP: 24.00 Great Vessels Aorta Ao Root-2D: 2.60 2.0-3.7 cm Ao Asc: 3.20 2.1-3.4 cm Pulmonary Valve PV Pk Flaquito: 1.09 Peak PV Grad: 5.00 Updated in Other Vendor System with Status of Final Eliseo Portillo MD electronically signed on 03/25/2024 1:03:23 PM with status of Final
== END ==
LOC: HO.CARD 13:41
PROVIDERS: PCP Internal Medicine; Visit Provider Internal Medicine
DX: I34.0 Nonrheumatic mitral (valve) insufficiency (principal)
CPT/HCPCS: 93306

== ENCOUNTER → 2024-03-24 13:58 | Outpatient (BNV) | payer OTHER, SELFPAY | PROVIDERS: PCP Internal Medicine; Visit Provider Internal Medicine | DX: I34.0 Nonrheumatic mitral (valve) insufficiency (principal); I34.81 Nonrheumatic mitral (valve) annulus calcification; I36.1 Nonrheumatic tricuspid (valve) insufficiency | CPT/HCPCS: 93306 ==

== ENCOUNTER 2024-06-26 08:32 | Outpatient (AMB) | payer OTHER, SELFPAY ==
[2024-06-26 08:51] VITALS: BP 120/80; PULSE 100; O2SAT 99; BMI 20.9
--- NOTE | 2024-06-26 08:51 | A.OFFVIS_ITS ---
Vital Signs 06/26/24 08:51 Height 5 ft 8 in Weight 137 lb 12.623 oz BMI 20.9 BP 120/80 Blood Pressure Location Rt brachial Position Sitting Pulse 100 Pulse Source Pulse Oximeter Pulse Oximetry (%) 99 Oxygen Delivery Method Room Air Intake Visit Reasons: Joint Pain/LM Intake Note: New patient referred by Dr. Montgomery and Dr. Michelle for numbness of hands and Joint paint. Patient states it started in January 2023. She states she has Raynauds, and was told to keep her hands warm for the Raynaud's There is stiffness in knees and shoulders. Allergies No Known Allergies Allergy (Unverified 06/26/24 08:55) Medication List - Last Reconciled 06/26/24 by Yary Whitlock MD amlodipine 2.5 mg PO DAILY betamethasone, augmented 0.05 % 1 appl topical DAILY cholecalciferol (vitamin D3) 25 mcg PO DAILY clobetasol 0.05% 1 appl topical DAILY HPI Comments Details: This is a 59-year-old female with history of discoid lupus who presents as a new patient for me to evaluate for underlying autoimmune rheumatic disease. She states that she was diagnosed with discoid lupus + alopecia based on a skin biopsy before 2013, she had lesions on her arms, forearms, scalp, she was treated with intralesional steroids and has been using topical steroid creams intermittently. She states that her rashes been well controlled overall. She never required systemic treatment. Since January of 2023 she has developed Raynaud's, affecting her fingers, her fingers color into blue and become cold and numb especially in the cold. Never had any digital tip ulcers. She is able to reverse the episodes using a heating pad for a few minutes. She also states that she has had opinion for many years that has been monitored. She does not recall having a bone marrow biopsy. She follows up regularly with a heme/oncologist. She also noticed some stiffness of her knees and shoulders with activity, morning stiffness lasts about 1 hour until she becomes completely loose. She has noticed some puffiness of her fingers. She denies any history of DVT/PE. Denies any fevers or weight loss. She is unaware of any family history of an autoimmune rheumatic disease. 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 Female Reproductive History Menstrual Total pregnancies: 0 Review of Systems Const Denies fever(s) and Denies weight loss Card Denies dyspnea and Denies dyspnea on exertion Resp Denies dyspnea and Denies dyspnea on exertion GI Denies heartburn Musc Reports joint swelling, Reports numbness and Reports stiffness Skin/Breast Reports unusual bruising Neuro Reports numbness Physical Exam Vital Signs: Last Vital Signs Pulse 100 06/26/24 08:51 BP 120/80 06/26/24 08:51 Pulse Ox 99 06/26/24 08:51 Oxygen Delivery Method Room Air 06/26/24 08:51 BMI result Body Mass Index 20.9 Const General: cooperative, healthy appearing and comfortable Nutritional Appearance: average body habitus Orientation/consciousness: patient oriented x3 Limitations: no limitations HEENT Head: Yes normocephalic and Yes atraumatic Mouth: moist mucous membranes Resp Effort & Inspection: normal respiratory effort and able to speak in complete sentences Auscultation: clear to auscultation bilaterally Cardio Rate: regular rate Rhythm: regular rhythm Skin General skin exam: no rashes or lesions noted Neuro General: patient oriented x3 Extrem Other: Clear Raynaud's with cool bluish fingers, puffy fingers, mild sclerodactyly Very subtle dilated loops on nailfold capillaroscopy on some fingers Normal range of motion of hands, wrists, elbows and shoulders without pain No knee pain with flexion-extension Results Reviewed Results Reviewed: Skin biopsy 2013 The biopsy contains a superficial and deep perivascular and periadnexal dermatitis with interface change noted around the adnexal structures. In addition, there is increase in dermal mucin highlighted with an Alcian Blue stain. A PAS-D stain for fungal organisms is negative. ?2. Skin, right preauricular cheek (punch for immunofluorescence): ? Immunofluorescent studies were performed on frozen tissue from this skin biopsy using the following antibodies: ? IgG, IgA, IgM and C3. The results are as follows: ? IgG: Positive staining at the dermal-follicular junction. ? IgA, IgM and C3: No immunoglobulins or complement identified. ? Interpretation: The findings, while not specific, support the diagnsosis of lupus. Assessment & Plan Assessment & Plan (1) Raynauds disease: Code(s): I73.00 - Raynaud's syndrome without gangrene Category: Medical Qualifiers: Raynaud?s-associated gangrene presence: without gangrene Qualified Code(s): I73.00 - Raynaud's syndrome without gangrene Plan: This is a 59-year-old female with history of discoid lupus diagnosed in 2013, history of fluctuating neutropenia and lymphopenia who presents for evaluation of an underlying autoimmune rheumatic disease. She also had new onset of Raynaud's 01/2023. Previous labs showed a positive CHELLE. Given new onset Raynaud's, I would like to evaluate for underlying autoimmune rheumatic disease For her Raynaud's, advised patient to monitor her blood pressure for the next 3- 4 day then increase her amlodipine to 5 mg daily and monitor her BP, this may help Raynaud's, round Discussed conservative measures for Raynaud's Can try taking ibuprofen 600 mg once daily for joint stiffness Follow-up in 6-8 weeks Plan I spent 48 minutes reviewing patient's chart, evaluating patient, ordering diagnostic workup, counseling patient and documenting in the chart Orders: Orders Anti Extractable Nuclear Ag Today M32.9 - Systemic lupus erythematosus, unspecified Anti DNA DS Antibody Today M32.9 - Systemic lupus erythematosus, unspecified Complement C3 Today M32.9 - Systemic lupus erythematosus, unspecified Complement C4 Today M32.9 - Systemic lupus erythematosus, unspecified C Reactive Protein Today M32.9 - Systemic lupus erythematosus, unspecified UA w Microscopic Today M32.9 - Systemic lupus erythematosus, unspecified Comprehensive Met. Panel Today M32.9 - Systemic lupus erythematosus, unspecified Hepatitis A,B,C Profile Today Z11.59 - Encounter for screening for other viral diseases DNA Double Stranded-Crithidia Today M32.9 - Systemic lupus erythematosus, unspecified Erythrocyte Sedimentation Rate Today M32.9 - Systemic lupus erythematosus, unspecified Protein Creatinine Ratio, Ur Today M32.9 - Systemic lupus erythematosus, unspecified Sjogren's Antibodies Today M32.9 - Systemic lupus erythematosus, unspecified Complete Blood Count Auto Diff Today M32.9 - Systemic lupus erythematosus, unspecified Immunofixation Pnl, Serum Today M32.9 - Systemic lupus erythematosus, unspecified Protein Electrophoresis, Serum Today M32.9 - Systemic lupus erythematosus, unspecified T Spot TB Today Z11.7 - Encounter for testing for latent tuberculosis infection Creatine Kinase Total Today M32.9 - Systemic lupus erythematosus, unspecified Scleroderma 12 Panel Today M34.9 - Systemic sclerosis, unspecified MSA Panel Extended Today M60.9 - Myositis, unspecified Coding Level of Care Code New Pt Level 4 (64577) Diagnoses Raynaud's disease without gangrene I73.00 Raynaud?s-associated gangrene presence: without gangrene
== END 2024-06-26 09:35 | disposition home or self-care (01) ==
PROVIDERS: PCP Internal Medicine; Visit Provider Student in an Organized Health Care Education/Training Program
DX: I73.00 Raynaud's syndrome without gangrene (principal)
CPT/HCPCS: 99204

== ENCOUNTER 2024-06-26 08:32 | Outpatient (REF) | payer OTHER, SELFPAY ==
[2024-06-26 10:20] LABS: MANUAL DIFF FLAG NO
[2024-06-26 10:54] LABS: Basophils Percent Auto 0.5 % (0-2); Eosinophils Percent Auto 0.3 % (0-4); Hematocrit 45.1 % (37.0-47.0); Hemoglobin 14.9 g/dl (12.0-16.0); Imm Gran Abs Auto 0.01 X10*3/uL (0.00-0.03); Imm Gran Pct Auto 0.3 % (0.0-0.4); Lymphocytes Absolute Auto 0.5 X10*3/uL (1.2-4.9); Lymphocytes Percent Auto 11.9 % (20-40); Mean Corpuscular Hemoglobin 28.9 pg (27.0-33.0); Mean Corpuscular Volume 87.4 fL (80.0-98.0); Monocytes Absolute Auto 0.2 X10*3/uL (0.1-1.2); Monocytes Percent Auto 6.3 % (2-11); Neutrophils Absolute Auto 3.1 x10*3/uL (2.0-8.3); Neutrophils Percent Auto 80.7 % (45-73); Platelet Count 303 X10*3/uL (160-400); Red Blood Count 5.16 X10*6/uL (4.20-5.50); White Blood Count 3.8 X10*3/uL (4.8-10.8)
[2024-06-26 11:22] LABS: Alanine Aminotransferase 31 U/L (0-31); Albumin Level 4.8 g/dL (3.5-5.0); Alkaline Phosphatase 88 U/L (39-117); Anion Gap 12 (12-20); Aspartate Amino Transferase 30 U/L (5-31); Bilirubin Total 0.4 mg/dL (0.0-1.0); Blood Urea Nitrogen 11 mg/dL (9-16); C Reactive Protein < 0.04 mg/dL (< or = 0.50); Calcium 11.1 mg/dL (8.4-10.2); Carbon Dioxide 25 mmol/L (22-29); Chloride 102 mmol/L (96-108); Estimated Glomerular Filt Rate > 60; Glucose Random 99 mg/dL (60-115); Potassium 4.3 mmol/L (3.3-5.1); Sodium 135 mmol/L (135-145); Total Protein 9.3 g/dL (6.5-8.0)
[2024-06-26 11:39] LABS: HBS Num1 0.45 mIU/mL (0-7.99); HBc Num1 0.11 S/CO (0.00-0.79); HBsAGNum1 0.31 S/CO (0.00-0.99); Hepatitis A Antibody IgM 0.39 Index (0-0.79); Hepatitis B Core Antibody Nonreactive (Nonreactive); Hepatitis B Surface Antigen Negative (Negative); ~HepC Num1 0.27 S/CO (0.00-0.79); ~Hepatitis A Antibody IgM Nonreactive (Nonreactive); ~Hepatitis B Surface Antibody NONREACTIVE (Nonreactive); ~Hepatitis C Antibody Nonreactive (Nonreactive)
[2024-06-26 11:49] LABS: Erythrocyte Sedimentation Rate 30 MM/HR (0-20)
[2024-06-26 11:56] LABS: Appearance Urine Clear; Color Urine Yellow; Glucose Urine UA Negative (Negative); Leukocyte Esterase Urine Negative (Negative); Nitrite Urine Negative (Negative); PH 6.5 (5.0-9.0); Urine Blood Negative (Negative); Urine Ketones Negative (Negative); Urine Protein Negative (Neg-Trace)
[2024-06-26 11:59] LABS: Bacteria Urine None Seen (None Seen); Hyaline Casts Urine 0-2 /LPF (0-2); RBC Urine 0-2 /HPF (0-2); Squamous Epithelial Cell Urine 0-2 /HPF (0-2); WBC Urine 0-5 /HPF (0-5)
[2024-06-26 12:14] LABS: Creatinine Urine 76.89 mg/dL; Total Protein Urine Random < 7 mg/dL (<12)
[2024-06-27 09:23] LABS: Complement C3 141 mg/dL (83-193)
[2024-06-27 13:09] LABS: Prot Elec - Albumin 4.4 g/dL (3.8-4.8); Prot Elec - Alpha1 0.4 g/dL (0.2-0.3); Prot Elec - Alpha2 0.9 g/dL (0.5-0.9); Prot Elec - Beta 1 0.5 g/dL (0.4-0.6); Prot Elec - Beta 2 0.5 g/dL (0.2-0.5); Prot Elec - Gamma 1.7 g/dL (0.8-1.7); Prot Elec - Total Protein 8.3 g/dL (6.1-8.1)
[2024-06-27 18:13] LABS: Anti DNA DS Antibody 1 IU/mL; Antibody to SS-A Antigen 2.1 POS AI (<1.0 NEG); Antibody to SS-B Antigen <1.0 NEG AI (<1.0 NEG); SM/Ribonucleoprotein Ab >8.0 POS AI (<1.0 NEG); Smith Protein <1.0 NEG AI (<1.0 NEG)
[2024-06-28 18:59] LABS: IgA 332 mg/dL (70-320); IgG 1950 mg/dL (600-1540); IgM 117 mg/dL (50-300)
[2024-06-29 00:23] LABS: TS Negative Control Passed; TS Panel A 2; TS Panel B 1; TS Positive Control Passed; TSpotTB Negative (Negative)
[2024-07-07 15:32] LABS: Centromere Protein A Ab <11 SI (<11); Centromere Protein B Ab <11 SI (<11); Cytosolic 5'nuc 1A Ab IgG <5 Units; DNAds, Crithidia Antibody Positive (Negative); Ej Ab <11 SI (<11); Fibrillarin Ab <11 SI (<11); HMGCR Ab IgG <2 CU (<20); Jo-1 Ab <11 SI (<11); MDA5 Ab <11 SI (<11); Mi-2 alpha Ab <11 SI (<11); Mi-2 beta Ab <11 SI (<11); NXP-2 (MJ) Ab <11 SI (<11); Oj Ab <11 SI (<11); PM SCL 100 Ab <11 SI (<11); PM SCL 75 Ab 63 SI (<11); Pl-12 Ab <11 SI (<11); Pl-7 Ab <11 SI (<11); RNA Polymerase III RP11 Ab <11 SI (<11); RNA Polymerase III RP155 Ab <11 SI (<11); SCL-70 Extractable Nuclear Ab <11 SI (<11); SRP Ab <11 SI (<11); TIF1 gamma Ab <11 SI (<11); Th-To Ab <11 SI (<11); U1 SNRNP RNP 70KD 44 SI (<11); U1 SNRNP RNP A 159 SI (<11); U1 SNRNP RNP C <11 SI (<11)
[2024-07-07 16:08] LABS: DNAds, Crithidia Antibody 1:20 titer (<1:10)
== END 2024-06-26 08:33 | disposition home or self-care (01) ==
LOC: HO.LAB 08:32
PROVIDERS: PCP Internal Medicine; Visit Provider Student in an Organized Health Care Education/Training Program
DX: Z11.59 Encounter for screening for other viral diseases (principal); Z11.7 Encounter for testing for latent tuberculosis infection; M32.9 Systemic lupus erythematosus, unspecified; M34.9 Systemic sclerosis, unspecified; I73.00 Raynaud's syndrome without gangrene; Z72.89 Other problems related to lifestyle
CPT/HCPCS: 36415; 80053; 81001; 82550; 82570; 82784; 83516; 83520; 84156; 84165; 84182; 85025; 85652; 86140; 86160; 86225; 86235; 86255; 86334; 86481; 86704; 86706; 86709; 86803; 87340

== ENCOUNTER 2024-08-09 06:31 | Outpatient (REF) | payer OTHER, SELFPAY ==
[2024-08-09 11:02] LABS: Calcium 9.8 mg/dL (8.4-10.2)
[2024-08-09 12:29] LABS: Parathyroid Hormone Intact 58.9 pg/mL (8.7-77.1)
== END 2024-08-09 06:32 | disposition home or self-care (01) ==
LOC: HO.HMGCLDS 06:31
PROVIDERS: PCP Internal Medicine; Visit Provider Internal Medicine Medical Oncology
DX: D72.819 Decreased white blood cell count, unspecified (principal); L93.0 Discoid lupus erythematosus
CPT/HCPCS: 36415; 82310; 83970

== ENCOUNTER 2024-08-22 08:30 | Outpatient (AMB) | payer OTHER, SELFPAY ==
--- NOTE | 2024-08-22 08:38 | MHC.OFFVIS ---
Vital Signs 08/22/24 08:41 Height 5 ft 8 in Weight 138 lb 3.677 oz BMI 21.0 BP 122/80 Blood Pressure Location Rt brachial Position Sitting Pulse 77 Pulse Source Pulse Oximeter Pulse Oximetry (%) 99 Oxygen Delivery Method Room Air Intake Visit Reasons: Raynaud's Intake Note: Patient presents for Raynaud's. Allergies No Known Allergies Allergy (Verified 08/22/24 08:40) Medication List - Last Reconciled 08/22/24 by Yary Whitlock MD amlodipine 5 mg PO DAILY betamethasone, augmented 0.05 % 1 appl topical DAILY cholecalciferol (vitamin D3) 25 mcg PO DAILY clobetasol 0.05% 1 appl topical DAILY hydroxychloroquine 300 mg (1.5 x 200 mg) PO DAILY HPI Comments Details: Patient returns for follow-up after completion of her diagnostic workup. She has increased her amlodipine to 5 mg daily. Without side effects. Has noticed some improvement in her Raynaud's but it not not go away. Continues to have some puffiness of her fingers and some stiffness with certain activities. Generalized morning stiffness lasting 1 hour Initial history: This is a 59-year-old female with history of discoid lupus who presents as a new patient for me to evaluate for underlying autoimmune rheumatic disease. She states that she was diagnosed with discoid lupus + alopecia based on a skin biopsy before 2013, she had lesions on her arms, forearms, scalp, she was treated with intralesional steroids and has been using topical steroid creams intermittently. She states that her rashes been well controlled overall. She never required systemic treatment. Since January of 2023 she has developed Raynaud's, affecting her fingers, her fingers color into blue and become cold and numb especially in the cold. Never had any digital tip ulcers. She is able to reverse the episodes using a heating pad for a few minutes. She also states that she has had opinion for many years that has been monitored. She does not recall having a bone marrow biopsy. She follows up regularly with a heme/oncologist. She also noticed some stiffness of her knees and shoulders with activity, morning stiffness lasts about 1 hour until she becomes completely loose. She has noticed some puffiness of her fingers. She denies any history of DVT/PE. Denies any fevers or weight loss. She is unaware of any family history of an autoimmune rheumatic disease. 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 Review of Systems Const Denies fever(s), Denies weakness and Denies weight loss Card Denies dyspnea on exertion Resp Denies cough and Denies dyspnea on exertion Musc Reports joint swelling and Reports stiffness Neuro Denies weakness Physical Exam Vital Signs: Last Vital Signs Pulse 77 08/22/24 08:41 BP 122/80 08/22/24 08:41 Pulse Ox 99 08/22/24 08:41 Oxygen Delivery Method Room Air 08/22/24 08:41 BMI result Body Mass Index 21.0 Const General: cooperative, healthy appearing and comfortable Nutritional Appearance: average body habitus Orientation/consciousness: patient oriented x3 Limitations: no limitations HEENT Head: Yes normocephalic and Yes atraumatic Mouth: moist mucous membranes Resp Effort & Inspection: normal respiratory effort and able to speak in complete sentences Auscultation: clear to auscultation bilaterally Cardio Rate: regular rate Rhythm: regular rhythm Neuro General: patient oriented x3 Extrem Other: Clear Raynaud's with cool bluish fingers, puffy fingers, mild sclerodactyly Very subtle dilated loops on nailfold capillaroscopy on some fingers Normal range of motion of hands, wrists, elbows and shoulders without pain No knee pain with flexion-extension Results Reviewed Results Reviewed: Skin biopsy 2014 The biopsy contains a superficial and deep perivascular and periadnexal dermatitis with interface change noted around the adnexal structures. In addition, there is increase in dermal mucin highlighted with an Alcian Blue stain. A PAS-D stain for fungal organisms is negative. ?2. Skin, right preauricular cheek (punch for immunofluorescence): ? Immunofluorescent studies were performed on frozen tissue from this skin biopsy using the following antibodies: ? IgG, IgA, IgM and C3. The results are as follows: ? IgG: Positive staining at the dermal-follicular junction. ? IgA, IgM and C3: No immunoglobulins or complement identified. ? Interpretation: The findings, while not specific, support the diagnsosis of lupus. Assessment & Plan Assessment & Plan (1) MCTD (mixed connective tissue disease): Comment: dx 08/2024 (skin biopsy consistent with lupus, Raynaud's, puffy fingers, arthralgias, neutropenia, lymphopenia, +++LOGISTICS PLANNING ENGINEER, +SSa +Dsdna PM/Scl 75) Code(s): M35.1 - Other overlap syndromes Category: Medical Plan: This is a 59-year-old female with history of discoid lupus diagnosed in 2013, history of fluctuating neutropenia and lymphopenia who presents for evaluation of an underlying autoimmune rheumatic disease. She also had new onset of Raynaud's 01/2023. On exam she has Raynaud's, mild sclerodactyly, labs most consistent with MCTD, high titer positive LOGISTICS PLANNING ENGINEER antibody, borderline positive SSA and dsDNA. I think her diagnosis is most consistent with MCTD I had a long conversation with patient. Discussed management of MCTD. Discussed Raynaud's. Continue with amlodipine 5 mg daily. We again discussed the importance of conservative measures for Raynaud's such as keeping core and extremity temperature warm, wearing gloves and gloves warmer. If no improvement over the coming 2 months, will consider increasing amlodipine to 10 mg daily Start hydroxychloroquine 300 mg daily for arthralgias, cytopenias Discussed the association with PH and ILD. Patient had an unremarkable 2D echo 03/2024. Will order PFTs to screen for ILD /PH Labs before next visit in 2 months (2) Long-term use of hydroxychloroquine: Code(s): Z79.899 - Other long term acute care registered nurse (current) drug therapy Category: Medical Plan: Discussed risk of retinopathy associated with hydroxychloroquine. Advised patient to make an appointment with land lease information clerk Plan I spent 45 minutes reviewing patient's chart, evaluating patient, ordering diagnostic workup, counseling patient and documenting in the chart Orders: Orders Complete Blood Count Auto Diff 2 Months M35.1 - Other overlap syndromes Comprehensive Met. Panel 2 Months M35.1 - Other overlap syndromes C Reactive Protein 2 Months M35.1 - Other overlap syndromes Creatine Kinase Total 2 Months M35.1 - Other overlap syndromes Erythrocyte Sedimentation Rate 2 Months M35.1 - Other overlap syndromes PFT pulmonary function test Today M35.1 - Other overlap syndromes, R06.02 - Shortness of breath Medications: New hydroxychloroquine 300 mg (1.5 x 200 mg) PO DAILY 135 tabs 0RF Coding Level of Care Code Est Pt Level 5 (02649) Complex EM visit Add On G2211 Diagnoses MCTD (mixed connective tissue disease) M35.1 Long-term use of hydroxychloroquine Z79.899
[2024-08-22 08:41] VITALS: BP 122/80; PULSE 77; O2SAT 99; BMI 21.0
== END 2024-08-22 09:09 | disposition home or self-care (01) ==
PROVIDERS: PCP Internal Medicine; Visit Provider Student in an Organized Health Care Education/Training Program
DX: I73.00 Raynaud's syndrome without gangrene (principal); M35.1 Other overlap syndromes; Z79.899 Other long term (current) drug therapy
CPT/HCPCS: 99215

== ENCOUNTER → 2024-08-22 08:30 | Outpatient (BNVA) | payer OTHER, SELFPAY | PROVIDERS: PCP Internal Medicine; Visit Provider Student in an Organized Health Care Education/Training Program ==

== ENCOUNTER 2024-08-28 07:43 | Outpatient (REF) | payer OTHER, SELFPAY ==
--- NOTE | ~2024-08-28 | MM_ITS ---
EXAMINATION: MM SCREENING DIGITAL BREAST TOMOSYNTHESIS, BILATERAL CLINICAL INFORMATION: Screening. Asymptomatic. COMPARISON: Mammography: Comparison is made with available priors TECHNIQUE: Digital breast mammography with tomosynthesis is performed in both the craniocaudal and mediolateral oblique views along with computer-aided detection (CAD). FINDINGS: The breasts are extremely dense, which lowers the sensitivity of mammography (ACR BI-RADS breast composition Category d). There are no significant masses, abnormal calcifications, or other abnormalities. MM/MM tomosynthesis screening BI IMPRESSION: No mammographic evidence of malignancy. ASSESSMENT: BI-RADS BI-RADS 1 - Negative RECOMMENDATION: Routine annual mammography screening. 1 year F/U This examination should not preclude the clinical evaluation of a suspicious palpable abnormality. This patient's information was entered into a reminder system with a target due date for their next mammogram. Electronically signed by: Evelyne Phan DO 09/08/2024 09:31 AM EDGriffin
== END 2024-08-28 07:44 | disposition home or self-care (01) ==
LOC: HO.MAMMO 07:43
PROVIDERS: PCP Internal Medicine; Visit Provider Internal Medicine
DX: Z12.31 Encounter for screening mammogram for malignant neoplasm of breast (principal)
CPT/HCPCS: 77063; 77067

== ENCOUNTER → 2024-08-28 07:45 | Outpatient (BNV) | payer OTHER, SELFPAY | PROVIDERS: PCP Internal Medicine; Visit Provider Internal Medicine | DX: Z12.31 Encounter for screening mammogram for malignant neoplasm of breast (principal) | CPT/HCPCS: 77063; 77067 ==

== ENCOUNTER 2024-10-06 14:16 | Outpatient (AMB) | payer OTHER, SELFPAY ==
[2024-10-06 14:18] VITALS: BP 130/74; PULSE 73; O2SAT 99; BMI 20.3
--- NOTE | 2024-10-06 14:18 | A.OFFVIS_ITS ---
Vital Signs 3 10/06/24 14:18 Height 5 ft 8 in Weight 133 lb 6.075 oz BMI 20.3 BP 130/74 Blood Pressure Location Lt brachial Position Sitting Pulse 73 Pulse Source Pulse Oximeter Pulse Oximetry (%) 99 Oxygen Delivery Method Room Air Intake Visit Reasons: Rash Intake Note: Patient presents with rash on most of her torso for 3-4 days. Allergies No Known Allergies Allergy (Verified 10/06/24 14:21) HPI Comments Details: Patient is a 59-year-old female with discoid lupus and mixed connective tissue disease who is here today for a sick visit for evaluation of a rash Patient follows with Rheumatology for discoid lupus and Raynaud's. She was recently seen 08/22/2024. 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 She was started on hydroxychloroquine 300 mg daily for arthralgias and cytopenias. Started medication 6 weeks ago. Started to develop a maculopapular rash 2- days ago. 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 Review of Systems Const Details: Review of Systems Constitutional: Denies fever, chills, weight loss ENT: Denies vision changes, eye pain or eye redness, dental caries, dry mouth GI: Denies nausea, vomiting, diarrhea, abdominal pain, change in BM Pulm: Denies SOB, PEREIRA, hemoptysis, wheezing Cards: Denies chest pain, palpitations Skin: Denies nail changes, photosensitivity, MIDDLE SCHOOL PROFESSIONAL: Denies headaches, weakness, paresthesias, recurrent falls MSK: as per HPI All other systems reviewed and are unremarkable except noted above Physical Exam Vital Signs: Last Vital Signs Pulse 73 10/06/24 14:18 BP 130/74 10/06/24 14:18 Pulse Ox 99 10/06/24 14:18 Oxygen Delivery Method Room Air 10/06/24 14:18 BMI result Body Mass Index 20.3 Patient with macular papular rash involving the abdomen and chest extending to the upper extremities. The lower extremities are spared. Mild sclerodactyly noted to bilateral hands. No evidence of synovitis involving hands, wrists, elbows, shoulders, knees, ankles or feet. Air entry equal bilaterally no Creps or wheeze. S1 and S2 heard no murmurs Assessment & Plan Assessment & Plan (1) Plaquenil causing adverse effect in therapeutic use: Code(s): T37.8X5A - Adverse effect of other specified systemic anti-infectives and antiparasitics, initial encounter Category: Medical Qualifiers: Encounter type: initial encounter Qualified Code(s): T37.8X5A - Adverse effect of other specified systemic anti-infectives and antiparasitics, initial encounter Plan: #Drug Eruption Patient with widespread maculopapular rash consistent with a drug eruption likely secondary to the Plaquenil given that she does not have any other new medications or new soaps or lotions with in the past few weeks. Stop Plaquenil. Continue Benadryl. Patient does report that this is sedating so I advised that she could take Claritin in its stead Patient is extremely anxious about the diagnosis of mixed connective tissue disease and I spent a very long time reassuring her about the diagnosis including that there are other therapeutic options for her even if the Plaquenil can not be used in the future. I did start to discuss other therapeutic such as azathioprine however that was met with more anxiety and concern and so I aborted the conversation and told her that she will follow up with Dr. Whitlock in a few weeks. I also recommended her to get a therapist because she is very anxious about the future. She did reveal that her last year of bladder cancer and so she has nobody to talk to I recommended that she contact her insurance and get a list of therapist or psychologist in the area that take her insurance Plan I spent 45 minutes reviewing the record and labs, seeing the patient, discussing the treatment plan and documenting in the medical record Coding Level of Care Code Est Pt Level 5 (23720) Diagnoses Hydroxychloroquine causing adverse effect in therapeutic use, initial encounter T37.8X5A Encounter type: initial encounter
== END 2024-10-06 14:59 | disposition home or self-care (01) ==
LOC: HO.RHE 14:16
PROVIDERS: PCP Internal Medicine; Visit Provider Student in an Organized Health Care Education/Training Program
DX: T37.8X5A Adverse effect of other specified systemic anti-infectives and antiparasitics, initial encounter (principal)
CPT/HCPCS: 99215

== ENCOUNTER 2024-10-13 06:13 | Outpatient (REF) | payer OTHER, SELFPAY ==
[2024-10-13 10:11] LABS: MANUAL DIFF FLAG NO
[2024-10-13 10:21] LABS: Basophils Percent Auto 1.5 % (0-2); Eosinophils Percent Auto 2.1 % (0-4); Hematocrit 41.9 % (37.0-47.0); Hemoglobin 14.2 g/dl (12.0-16.0); Lymphocytes Absolute Auto 0.6 X10*3/uL (1.2-4.9); Lymphocytes Percent Auto 28.2 % (20-40); Mean Corpuscular HGB Conc 33.9 g/dl (31.0-35.0); Mean Corpuscular Hemoglobin 29.3 pg (27.0-33.0); Mean Corpuscular Volume 86.4 fL (80.0-98.0); Mean Platelet Volume 9.2 fL (9.4-12.3); Monocytes Absolute Auto 0.3 X10*3/uL (0.1-1.2); Monocytes Percent Auto 13.3 % (2-11); Neutrophils Absolute Auto 1.1 x10*3/uL (2.0-8.3); Neutrophils Percent Auto 54.9 % (45-73); Platelet Count 282 X10*3/uL (160-400); Red Blood Count 4.85 X10*6/uL (4.20-5.50); Red Cell Distribution Width 13.1 % (11.0-16.0); SCAN SMEAR FLAG 1
[2024-10-13 10:39] LABS: Alanine Aminotransferase 27 U/L (0-31); Albumin Level 4.3 g/dL (3.5-5.0); Alkaline Phosphatase 58 U/L (39-117); Anion Gap 11 (12-20); Aspartate Amino Transferase 28 U/L (5-31); Bilirubin Total 0.6 mg/dL (0.0-1.0); Blood Urea Nitrogen 7 mg/dL (9-16); C Reactive Protein < 0.04 mg/dL (< or = 0.50); Calcium 10.1 mg/dL (8.4-10.2); Carbon Dioxide 24 mmol/L (22-29); Chloride 102 mmol/L (96-108); Cholesterol 225 mg/dL (<200); Estimated Glomerular Filt Rate > 60; Glucose Random 89 mg/dL (60-115); HDL Cholesterol 70 mg/dL (>40); LDL Cholesterol Calculated 146 mg/dL (<100); Potassium 3.9 mmol/L (3.3-5.1); Sodium 133 mmol/L (135-145); Total Protein 7.7 g/dL (6.5-8.0); Triglycerides 47 mg/dL (<150)
[2024-10-13 11:33] LABS: Erythrocyte Sedimentation Rate 6 MM/HR (0-20)
== END 2024-10-13 06:14 | disposition home or self-care (01) ==
LOC: HO.HMGCLDS 06:13
PROVIDERS: PCP Internal Medicine; Referring Provider Student in an Organized Health Care Education/Training Program; Visit Provider Internal Medicine
DX: M35.1 Other overlap syndromes (principal); E78.00 Pure hypercholesterolemia, unspecified
CPT/HCPCS: 36415; 80053; 80061; 82550; 85025; 85652; 86140

== ENCOUNTER 2024-10-24 08:28 | Outpatient (AMB) | payer OTHER, SELFPAY ==
--- NOTE | 2024-10-24 08:44 | MHC.OFFVIS ---
Vital Signs 10/24/24 08:50 Height 5 ft 8 in Weight 138 lb 0.15 oz BMI 21.0 BP 132/74 Blood Pressure Location Lt brachial Position Sitting Pulse 81 Pulse Source Pulse Oximeter Pulse Oximetry (%) 99 Oxygen Delivery Method Room Air Intake Visit Reasons: MCTD/CM Intake Note: Patient presents for MCTD. Allergies hydroxychloroquine Allergy (Mild, Verified 10/24/24 08:49) Hives sulfamethoxazole Allergy (Mild, Verified 10/24/24 08:49) Rash Medication List - Last Reconciled 10/24/24 by Yary Whitlock MD amlodipine 5 mg PO DAILY betamethasone, augmented 0.05 % 1 appl topical DAILY cholecalciferol (vitamin D3) 25 mcg PO DAILY clobetasol 0.05% 1 appl topical DAILY diphenhydramine HCl (Benadryl) 25 mg PO BEDTIME PRN HPI Comments Details: 59-year-old female with MCTD returns for follow-up. She was seen urgently [address] Gracia due to a development of a diffuse rash 6 weeks after starting hydroxychloroquine. She discontinued the hydroxychloroquine and the rash resolved in a few days. She continues to have some generalized stiffness of her shoulders, hands, knees. Usually with activity. She gets some burning and tingling in her hands in the morning and with activity. Her main complaint is Raynaud's. She has episodes when she has to run her hands under warm water. Initial history: This is a 59-year-old female with history of discoid lupus who presents as a new patient for me to evaluate for underlying autoimmune rheumatic disease. She states that she was diagnosed with discoid lupus + alopecia based on a skin biopsy before 2013, she had lesions on her arms, forearms, scalp, she was treated with intralesional steroids and has been using topical steroid creams intermittently. She states that her rashes been well controlled overall. She never required systemic treatment. Since January of 2023 she has developed Raynaud's, affecting her fingers, her fingers color into blue and become cold and numb especially in the cold. Never had any digital tip ulcers. She is able to reverse the episodes using a heating pad for a few minutes. She also states that she has had opinion for many years that has been monitored. She does not recall having a bone marrow biopsy. She follows up regularly with a heme/oncologist. She also noticed some stiffness of her knees and shoulders with activity, morning stiffness lasts about 1 hour until she becomes completely loose. She has noticed some puffiness of her fingers. She denies any history of DVT/PE. Denies any fevers or weight loss. She is unaware of any family history of an autoimmune rheumatic disease. 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 Female Reproductive History Menstrual Total pregnancies: 0 Review of Systems Const Denies fever(s), Denies weakness and Denies weight loss Card Denies dyspnea on exertion Resp Denies cough and Denies dyspnea on exertion Musc Denies joint swelling, Reports numbness, Reports stiffness and Reports tingling Neuro Reports numbness, Reports tingling and Denies weakness Physical Exam Vital Signs: Last Vital Signs Pulse 81 10/24/24 08:50 BP 132/74 10/24/24 08:50 Pulse Ox 99 10/24/24 08:50 Oxygen Delivery Method Room Air 10/24/24 08:50 BMI result Body Mass Index 21.0 Const General: cooperative, healthy appearing and comfortable Nutritional Appearance: average body habitus Orientation/consciousness: patient oriented x3 Limitations: no limitations HEENT Head: Yes normocephalic and Yes atraumatic Mouth: moist mucous membranes Resp Effort & Inspection: normal respiratory effort and able to speak in complete sentences Auscultation: clear to auscultation bilaterally Cardio Rate: regular rate Rhythm: regular rhythm Neuro General: patient oriented x3 Extrem Other: Clear Raynaud's with cool bluish fingers, puffy fingers, mild sclerodactyly Very subtle dilated loops on nailfold capillaroscopy on some fingers Normal range of motion of hands, wrists, elbows and shoulders without pain Subtle telangiectasias on nose Rash from 3 weeks ago resolved No knee pain with flexion-extension Assessment & Plan Assessment & Plan (1) MCTD (mixed connective tissue disease): Comment: dx 08/2024 (skin biopsy consistent with lupus, Raynaud's, puffy fingers, arthralgias, neutropenia, lymphopenia, +++CROTCH BREAKER, +SSa +Dsdna PM/Scl 75) Code(s): M35.1 - Other overlap syndromes Category: Medical Plan: This is a 59-year-old female with MCTD who returns for follow-up. Patient is quite anxious about different DMARDs. At this time there is no compelling reason to start DMARDs. Her main symptom at this time is Raynaud's. Discussed Raynaud's. Continue with amlodipine 5 mg daily. We again discussed the importance of conservative measures for Raynaud's such as keeping core and extremity temperature warm, wearing gloves and gloves warmer. If no improvement over the coming 2 months Increase amlodipine to 10 mg daily. Can consider starting fluoxetine for Raynaud's as patient is quite anxious PFTs and 2D echo were unremarkable in 2023 Labs before next visit in 3 months Plan I spent 20 minutes reviewing patient's chart, evaluating patient, ordering diagnostic workup, counseling patient and documenting in the chart Orders: Orders Anti DNA DS Antibody 3 Months M35.1 - Other overlap syndromes, Z79.899 - Other alf (current) drug therapy Complement C3 3 Months M35.1 - Other overlap syndromes, Z79.899 - Other termite control service representative (current) drug therapy C Reactive Protein 3 Months M35.1 - Other overlap syndromes, Z79.899 - Other alf (current) drug therapy Erythrocyte Sedimentation Rate 3 Months M35.1 - Other overlap syndromes, Z79.899 - Other termite control service representative (current) drug therapy Comprehensive Met. Panel 3 Months M35.1 - Other overlap syndromes, Z79.899 - Other alf (current) drug therapy Complement C4 3 Months M35.1 - Other overlap syndromes, Z79.899 - Other termite control service representative (current) drug therapy Protein Creatinine Ratio, Ur 3 Months M35.1 - Other overlap syndromes, Z79.899 - Other termite control service representative (current) drug therapy UA w Microscopic 3 Months M35.1 - Other overlap syndromes, Z79.899 - Other termite control service representative (current) drug therapy Complete Blood Count Auto Diff 3 Months M35.1 - Other overlap syndromes, Z79.899 - Other alf (current) drug therapy Coding Level of Care Code Est Pt Level 3 (96962) Diagnoses MCTD (mixed connective tissue disease) M35.1
[2024-10-24 08:50] VITALS: BP 132/74; PULSE 81; O2SAT 99; BMI 21.0
== END 2024-10-24 09:41 | disposition home or self-care (01) ==
PROVIDERS: PCP Internal Medicine; Visit Provider Student in an Organized Health Care Education/Training Program
DX: M35.1 Other overlap syndromes (principal)
CPT/HCPCS: 99213

== ENCOUNTER 2025-01-17 06:08 | Outpatient (REF) | payer OTHER, SELFPAY ==
--- OUTSIDE RECORDS SUMMARY | 2025-01-17 06:11 | XMS_ITS ---
Author Organization Anderson Lyn III, MD Address [address] [place] [address] Care Team Providers Care Evidence Technician Name Role Phone Jose Montgomery MD Primary Care Provider Anderson Mcnally Unavailable [phone] Allergies Allergen (clinical drug ingredient) Drug/Non Drug [...] Date Provider Diagnosis Anderson Lyn III, MD [address] [place] [address] [address], [place] [address] 07/06/2024 Anderson Lyn Leukopenia D72.819 ; Discoid [...] , Reason: Telehealth, OV Provider Name:Anderson Lyn, 02/15/2025 09:00:00 AM, [address] [facility] [place] [place], [place], [address], Progress Notes * Zhanna CARTERDOB:1965 (59 yo F)Acc No.[id number]:07/06/2024 Progress Notes Patient:?Zhanna Carter Provider:?Anderson Lyn MD :1965???Age:59 Y???Sex:Female D ate:07/06/2024 Address:[address] [place] [address] [id number] Pcp:Jose Montgomery MD Subjective: * Chief Complaints: * ???LeukocytopeniaDiscoid lup usAllergiesIron deficiencyHypertension * HPI: ???COVID-19 Screening:? She returns for surveillance of her leukopenia. She has had no infections. She is now under the care of a industrial psychologist. Comprehensive blood work has been done. On June 26, 2024 the white blood cell count was 3800 hematocrit 45.1 platelets 303 sedimentation rate 30 total protein 9.3 glucose 90 none the 111 creatinine 0.7 IgG 1950 IgA 332 IgM1 17 protein electrophoresis no monoclonal antibodies, single stranded DNA antibodies positive. Double-stranded antibodies negative, Absolute neutrophils 3100, absolute lymphocytes 500. ?Questions?Have you experienced fever, chills, cough, sore throat, shortness of breath, difficulty breathing, muscle aches, loss of taste or smell??No ?Have you been exposed to the virus within the last 10 days??No ?Have you travelled internationally in the last 10 days??No ?Have you been exposed to COVID-19 in the past??No * ROS:?General/Constitutional:?pain?only normal aches and pains.?Chills?denies.?Fatigue?admits.?Fever?denies.?ENT:?Decreased hearing?denies.?Respiratory:?Cough?denies.?Cardiovascular:?Chest pain with exertion?denies.?Dyspnea on exertion?denies.?Shortness of breath?denies.?Gastrointestinal:?Constipation?occasional.?Decreased appetite?denies.?Diarrhea?denies.?Heartburn?denies.?Nausea?denies.?Rectal bleeding?denies.?Vomiting?denies.?Hematology:?bruising?denies.?petechiae?denies.?Swollen glands?none have been noted.?Genitourinary:?Frequent urination?at night.?Musculoskeletal:?Muscle aches?denies.?Painful joints?denies.?Sciatica?denies.?Weakness?denies.?Skin:?Itching?denies.?Rash?denies.?Skin lesion(s)?denies.?Neurologic:?Difficulty speaking?denies.?Dizziness?denies.?Headache?denies.?Low back pain?denies.?Psychiatric:?Depressed mood?denies.? * Medical History:? * Surgical History:?normal col onoscopy, Dr. Lee 09/2010ultrasound-guided biopsy left breast, fibroadenoma 12/2004 * Hospitalization/Major Diagno stic Procedure:?Denies Past Hospitalization * Family History:?Father: dece ased 91 yrs, lung cancer, diagnosed with Cancer.?Mother: 82 yrs, Heart Diseease.?3 brother(s) , 2 sister(s) . .? One brother had a myocardial infarction at age 50. * Social History:?Tobacco Use:?Tobacco Use/Smoking?Patient is a?former smoker ?How long has it been since you last smoked??> 10 years ?Additional Findings: Tobacco Non-User?Ex-cigarette smoker ???Her collins dided of bladder cancer April 2023. They have no children. 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 She is not a Yarsani. * Medications:?TakingClobetaso l Propionate 0.05 % Gel APPLY TO AFFECTED [...] reviewed and reconciled with the patient * Allergies:?No Known Drug All ergyno[Allergies Verified] Objective: * Vitals:?Ht: 68, Wt:136, BMI: 20.68, BP:139/87, HR:102, Temp:98.8. * Examination: ???General Examination: ?GENERAL APPEARANCE:?pleasant, well nourished, well developed, in no acute distress, calm and relaxed , woman.?HEAD:?atraumatic, normocephalic.?EYES:?eomi, perrla, anicteric, conjugate.?EARS:?normal.?NOSE:?septum intact.?ORAL CAVITY:?normal, unremarkable.?NECK/THYROID:?no jugular venous distention, no carotid bruit, thyroid normal.?LYMPH NODES:?no enlarged lymph nodes,spleen normal.?SKIN:?no suspicious lesions, anicteric.?HEART:?no clicks, gallops, murmurs, or rubs, regular rhythm, S1, S2 normal, no s3, or vascular bruits.?LUNGS:?clear to auscultation .?BREASTS:?not examined.?ABDOMEN:?bowel sounds normal, no ascites, no organomegaly, no mass.?RECTAL EXAM:?not examined.?MUSCULOSKELETAL:?extremities unremarkable, no clubbing, cyanosis or edema.?PERIPHERAL PULSES:?normal.?NEUROLOGIC:?alert and oriented, cranial nerves 2-12 grossly intact, deep tendon reflexes 2+ symmetrical, motor strength normal upper and lower extremities, sensory exam intact.?PSYCH:?alert, oriented.? Assessment: * Assessment: 1.?Leukopenia - D72.819 (Fidelia downing), Her total white blood cell count is again 3800. The differential is remarkable for a normal number of neutrophils and a diminished number of lymphocytes.. She has had no infections. 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 Her total protein is elevated to 9.3 but there are no monoclonal antibodies found on serum protein electrophoresis. The antibodies against single-stranded DNA are positive.?3.?Essential hypertension - I10, The blood pressure is slightly high at 139/87 and this problem is well controlled. No additional changes are necessary.?4.?History of iron deficiency anemia - Z86.2, There is currently no sign of iron deficiency and she does not require iron supplementation.?5.?Former smoker - Z87.891, We formulated a plan to prevent relapse and times of stress and illness.? Plan: * Treatment: 2.?Discoid lupus?LAB: Calcium ?LAB: Parathyroid Hormone Intact 3.?Others? Continue amLODIPine Besylate Tablet, 2.5 MG, 1 tablet, Orally, Once a day.?? * Procedure Codes:? * Preventive Medicine:? ??Counseling:?Smoking/Tobacco Use?Patient counseled on the dangers of tobacco use and urged to quit.?07/06/2024 * Follow Up:?6 Weeks, 6 Months (Reason: Telehealth, OV) * Images: * Sign off status: Completed true * Provider:?Anderson Lyn MD Date:?06/22 Generated for Printi ng/Fasarang/eTransmitting on:?01/17/2025 06:10 AM EST History and Physical Notes * HPI (History of Present Illness) Category Sub-Category Detail Notes COVID-19 Screening Questions Have you had any new onset fever, chills, cough, congestion, sore throat, shortness of breath, muscle aches?: No Have you been exposed to the virus withi n the last 10 days?: No Have you travelled internationally in [facility] last 10 days?: No Have you [...]
--- OUTSIDE RECORDS SUMMARY | 2025-01-17 06:11 | XMS_ITS ---
Author Organization Anderson Lyn III, MD Address [address] [place] [address] [place] [address] Care Team Providers Care Ui Engineer Name Role Phone Jose Montgomery MD Primary Care Provider Anderson Mcnally Unavailable [phone] Allergies Allergen (clinical drug ingredient) Drug/Non Drug [...] Date Provider Diagnosis Anderson Lyn III, MD [address] [place] [address] [place] [address] 08/17/2024 Anderson Lyn Leukopenia D72.819 ; Discoid [...] Scheduled, Adeline son: OV Provider Name:Anderson Lyn, 02/15/2025 09:00:00 AM, [address] [place] [address] [address] [address], [place], [address], Progress Notes * Zhanna CARTERDOB:1965 (59 yo F)Acc No.[id number]:08/17/2024 Patient:?Zhanna CARTER Provider:?Anderson Lyn MD :1965???Age:59 Y???Sex:Female D ate:08/17/2024 Address:[address] [place] [address], [id number] Pcp:Jose Montgomery MD Subjective: * Chief Complaints: * ???LeukopeniaDiscoid lupusSe asonal allergiesHypertensionIron deficiency anemia * HPI: ???:?She returns to the office for management of her anemia and iron deficiency and leukopenia.? She is known to have discoid lupus.? Since her last visit she has had no major infections and has been well.? Her examination today was unremarkable.? Her blood work was reviewed with her in detail.The calcium and parathyroid hormone levels were normal. Blood work done July 15, 2020 the for showed glucose 99 BUN 11 creatinine 0.7 white count 3.8 with 81% neutrophils hematocrit 45.1 platelets 303,000. ?Telehealth?Location of provider rendering services:?{...} [address] [facility] [address] ?Location of patient:?address listed in demographics for today's visit ?Patient identification confirmed using:?Name, ?Telehealth method:?Telephone only. Patient not visible to care provider. ?Consent:?Patient verbally consented to treatment, Patient verbally consented to billing insurance company, Patient informed of any privacy concerns related to method of visit ?Total time spent with patient (mins)?15 * ROS:?General/Constitutional:?pain?only normal aches and pains.?Chills?denies.?Fatigue?admits.?Fever?denies.?ENT:?Decreased hearing?denies.?Respiratory:?Cough?denies.?Cardiovascular:?Chest pain with exertion?denies.?Dyspnea on exertion?denies.?Shortness of breath?denies.?Gastrointestinal:?Constipation?denies.?Decreased appetite?denies.?Diarrhea?denies.?Heartburn?denies.?Nausea?denies.?Rectal bleeding?denies.?Vomiting?denies.?Hematology:?bruising?denies.?petechiae?denies.?Swollen glands?none have been noted.?Genitourinary:?Frequent urination?a small amount.?Musculoskeletal:?Muscle aches?denies.?Painful joints?denies.?Sciatica?denies.?Weakness?denies.?Skin:?Itching?denies.?Rash?denies.?Skin lesion(s)?denies.?Neurologic:?Difficulty speaking?denies.?Dizziness?denies.?Headache?denies.?Low back pain?denies.?Psychiatric:?Depressed mood?denies.? [...] They have no children. 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 She is not a Taoism. * Medications:?TakingClobetaso l Propionate 0.05 % Gel [...] Known Drug All ergyno[Allergies Verified] Objective: * Vitals:? Assessment: * Assessment: 1.?Leukopenia - D72.819 (Fidelia downing)???Notes :Her total white blood cell count is again 3800. The differential is remarkable for a normal number of neutrophils and a diminished number of lymphocytes.. She has had no infections. 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 Her total protein is elevated to 9.3 but there are no monoclonal antibodies found on serum protein electrophoresis. The antibodies against single-stranded DNA are positive.???3.?History of iron deficiency anemia - Z86.2???Notes :There is currently no sign of iron deficiency and she does not require iron supplementation.???4.?Essential hypertension - I10???Notes :Return to the office on her next visit to have her blood pressure measured.???5.?Seasonal allergies - J30.2???Notes :She has had no rhinitis yet this year. She is preparing for pollen season.???6.?Former smoker - Z87.891???Notes :We formulated a plan to prevent relapse and times of stress and illness.??? Plan: * Treatment: 2.?Others? Continue amLODIPine Besylate Tablet, 2.5 MG, 1 tablet, Orally, Once a day.?? * Procedure Codes:? * Preventive Medicine:? ??Counseling:?Smoking/Tobacco Use?Patient counseled on the dangers of tobacco use and urged to quit.?08/17/2024 * Follow Up:?As Scheduled ([place] son: OV) * Images: * Sign off status: Completed true * Provider:?Anderson Lyn MD Date:?07/24 Generated for Dasia beard/Jonelle/Chica on:?01/17/2025 06:10 AM EST History and Physical Notes * HPI (History of Present Illness) Category Sub-Category Detail Notes Telehealth Location of [facility] rendering services:: {...} [address] [place] [id number] Location of patient:: address listed in demographics [...]
--- OUTSIDE RECORDS SUMMARY | 2025-01-17 06:11 | XMS_ITS ---
Author Organization Anderson Lyn III, MD Address [address] [place] [address] Care Team Providers Care Pediatric Genetic Counselor Name Role Phone Jose Montgomery MD Primary Care Provider Anderson Mcnally Unavailable [phone] Allergies Allergen (clinical drug ingredient) Drug/Non Drug [...] Problem Status W/U Status Risk Notes Problem 9986212 Former smoker (Z87.891) Active confirmed We formulated [...] Date Provider Diagnosis Anderson Lyn III, MD [address] [place] [address] [place] [address] 03/29/2024 Anderson Lyn Leukopenia D72.819 ; Alopecia [...] Reason: ov review labs Provider Name:Anderson Lyn, 02/15/2025 09:00:00 AM, [address] [place] [address] [address], [place], [address], Progress Notes * Zhanna CARTERDOB:1965 (58 yo F)Acc No.[id number]:03/29/2024 Progress Notes Patient:?Zhanna Carter Provider:?Anderson Lyn MD :1965???Age:58 Y???Sex:Female D ate:03/29/2024 Address:[address] [place] [address] [address] [place], [id number] Pcp:Jose Montgomery MD Subjective: * Chief Complaints: * ???Discoid lupusLeukopenicHi story of iron deficiency * HPI: ???COVID-19 Screening:? She has a history of discoid lupus and leukopenia. Her white blood cell count is currently 1900 the same. It was on her last visit. Her hemoglobin and hematocrit and mean cell volume and platelets are normal. Her differential is normal. Her folic acid and vitamin B12 levels are normal. She is not taking ferrous sulfate. ?Questions?Have you experienced fever, chills, cough, sore throat, shortness of breath, difficulty breathing, muscle aches, loss of taste or smell??No ?Have you been exposed to the virus within the last 10 days??No ?Have you travelled internationally in the last 10 days??No ?Have you been exposed to COVID-19 in the past??Yes * ROS:?General/Constitutional:?pain?only normal aches and pains.?Chills?denies.?Fatigue?admits.?Fever?denies.?ENT:?Decreased hearing?denies.?Respiratory:?Cough?denies.?Cardiovascular:?Chest pain with exertion?denies.?Dyspnea on exertion?denies.?Shortness of breath?denies.?Gastrointestinal:?Constipation?occasional.?Decreased appetite?denies.?Diarrhea?denies.?Heartburn?denies.?Nausea?denies.?Rectal bleeding?denies.?Vomiting?denies.?Hematology:?bruising?denies.?petechiae?denies.?Swollen glands?none have been noted.?Genitourinary:?Frequent urination?denies.?Musculoskeletal:?Muscle aches?denies.?Painful joints?Right hip.?Sciatica?denies.?Weakness?denies.?Skin:?Itching?denies.?Rash?denies.?Skin lesion(s)?denies.?Neurologic:?Difficulty speaking?denies.?Dizziness?denies.?Headache?denies.?Low back pain?denies.?Psychiatric:?Depressed mood?denies.? * Medical [...] years ?Additional Findings: Tobacco Non-User?Ex-cigarette smoker ???Her apaul dided of bladder cancer April 2023. They have no children. She works for [employer] in the [employer] department and has no occupational exposures. She is not a Jew. * Medications:?TakingClobetaso l Propionate 0.05 % Gel [...] All ergyno[Allergies Verified] Objective: * Vitals:?Ht: 68, Wt: 137, BMI :20.83, BP: 143/81, HR: 89, Temp: 98.8, Wt-k.14. * ???Past Orders: Lab:SLIDE REVIEW * Order Date 03/21/2024 01/18/2024 SLIDE REVIEW VERIFIED VERIFIED * Lab:Comprehensive Met. Panel * Order Date 03/21/2024 01/18/2024 07/20/2023 Sodium 136 (Ref Range: 135-145 mmol/L) 136 (Ref Range: 135-145 mmol/L) 135 (Ref Range: 135-145 mmol/L) Bilirubin Total 0.5 (Ref Range: 0.0-1.0 mg/dL) 0.5 (Ref Range: 0.0-1.0 mg/dL) 0.6 (Ref Range: 0.0-1.0 mg/dL) Aspartate Amino Transferase 32?H (Ref Range: 5-31 U/L) 38?H (Ref Range: 5-31 U/L) 37?H (Ref Range: 5-31 U/L) Alanine Aminotransferase 38?H (Ref Range: 0-31 U/L) 48?H (Ref Range: 0-31 U/L) 68?H (Ref Range: 0-31 U/L) Total Protein 7.6 [...] mmol/L) Anion Gap 13 (Ref Range: 12-20) 11?L (Ref Range: 12-20) 11?L (Ref Range: 12-20) Blood Urea Nitrogen 9 [...] Date 03/21/2024 01/18/2024 07/20/2023 White Blood Count 1.9?L (Ref Range: 4.8-10.8 X10*3/uL) 1.9?L (Ref Range: 4.8-10.8 X10*3/uL) 2.6?L (Ref Range: 4.8-10.8 X10*3/uL) Red Blood Count [...] 160-400 X10*3/uL) 262 (Ref Range: 160-400 X10*3/uL) 402?H (Ref Range: 160-400 X10*3/uL) Mean Platelet Volume 9.8 (Ref Range: 9.4-12.3 fL) 9.6 (Ref Range: 9.4-12.3 fL) 8.9?L (Ref Range: 9.4-12.3 fL) Neutrophils Percent Auto 54.5 (Ref Range: 45-73 %) 51.9 (Ref Range: 45-73 %) 54.0 (Ref Range: 45-73 %) Imm Gran Pct Auto 0.0 (Ref Range: 0.0-0.4 %) 0.0 (Ref Range: 0.0-0.4 %) 0.0 (Ref Range: 0.0-0.4 %) Lymphocytes Percent Auto 28.8 (Ref Range: 20-40 %) 33.0 (Ref Range: 20-40 %) 27.8 (Ref Range: 20-40 %) Monocytes Percent Auto 15.2?H (Ref Range: 2-11 %) 13.5?H (Ref Range: 2-11 %) 17.4?H (Ref Range: 2-11 %) Eosinophils Percent Auto 0.5 (Ref Range: 0-4 %) 1.1 (Ref Range: 0-4 %) 0.0 (Ref Range: 0-4 %) Basophils Percent Auto 1.0 (Ref Range: 0-2 %) 0.5 (Ref Range: 0-2 %) 0.8 (Ref Range: 0-2 %) NRBC Pct Auto 0.0 (Ref Range: 0.0-0.2 /100WBC) 0.0 (Ref Range: 0.0-0.2 /100WBC) 0.0 (Ref Range: 0.0-0.2 /100WBC) Neutrophils Absolute Auto 1.0?L (Ref Range: 2.0-8.3 x10*3/uL) 1.0?L (Ref Range: 2.0-8.3 x10*3/uL) 1.4?L (Ref Range: 2.0-8.3 x10*3/uL) Imm Gran Abs Auto 0.00 (Ref Range: 0.00-0.03 X10*3/uL) 0.00 (Ref Range: 0.00-0.03 X10*3/uL) 0.00 (Ref Range: 0.00-0.03 X10*3/uL) Lymphocytes Absolute Auto 0.6?L (Ref Range: 1.2-4.9 X10*3/uL) 0.6?L (Ref Range: 1.2-4.9 X10*3/uL) 0.7?L (Ref Range: 1.2-4.9 X10*3/uL) Monocytes Absolute Auto [...] - 03/21/2024) (Collection Date - 03/21/2024)?ValueReference Range?Vitamin [id number] - pg/mL ?Folate8.7> or = 4.0 - ng/mL ???Lab:Gamma Glutamyl Transpeptidase (Order Date - 03/21/2024) (Collection Date - 03/21/2024)?ValueReference Range?Gamma Glutamyl [id number] 7-33 - U/L * Examination: ???General Examination: ?GENERAL APPEARANCE:?pleasant, well [...] a further decline in the white blood cell?2.?Alopecia areata - L63.9, He says this has resolved.?3.?Seasonal allergies - J30.2, She has had no rhinitis yet this year. She is preparing for pollen season.?4.?Essential hypertension - I10, The blood pressure is Slightly high at 143/80 and this problem is well controlled. No additional changes are necessary.?5.?Right hip pain - M25.551, was serge disc?6.?Former smoker - Z87.891, We formulated a plan to prevent relapse and times of stress and illness.? Plan: * Treatment: 2.?Others? Continue amLODIPine Besylate Tablet, 2.5 MG, 1 tablet, Orally, Once a day.?? * Procedure Codes:? * Preventive Medicine:? ??Counseling:?Smoking/Tobacco Use?Patient counseled on the dangers of tobacco use and urged to quit.?03/29/2024 * Follow Up:?3 Months (Reason: ov review labs) * Images: * Sign off status: Completed true * Provider:?Anderson Lyn MD Date:?06/2024 Generated for Dasia beard/Jonelle/Chica on:?01/17/2025 06:10 AM EST History and Physical Notes * HPI (History of Present Illness) Category Sub-Category Detail Notes COVID-19 Screening Questions Have you had any new onset fever, chills, cough, congestion, sore throat, shortness of breath, muscle aches?: No Have you been exposed to the virus withi n the last 10 days?: No Have you travelled internationally in e last 10 days?: No Have you been [...]
--- OUTSIDE RECORDS SUMMARY | 2025-01-17 06:11 | XMS_ITS | Patient Health Record ---
Author Organization [facility] Address [address] [place] [address] Care Team Providers Care Compugraph Operator Name Role Phone Jose Montgomery MD Primary Care Provider Anderson Kaur Unavailable [phone] ALLERGIES No Known Allergies REASON FOR REFERRAL No Information MEDICATIONS Medication SIG (Take, Route, Frequency, Duration) Notes Start Date End Date Status Clobetasol Propionate Active Betamethasone Dipropionate 0.05 % APPLY TWICE DAILY NEEDED FOR FACE AND BODY External for 30 Active amLODIPine Besylate 2.5 MG TAKE 1 TABLET BY MOUTH EVERY DAY Oral for 90 Active IMMUNIZATIONS Vaccine Route Administration Date Status Comme nts Influenza Unknown 12/22/2022 Refused SOCIAL HISTORY Tobacco Use: Social History Observation Description Date Details (start date - stop date) Never Smoker NA - NA Sex Assigned At : Social History Observation Description Sex Assigned At Unknown Tobacco Use/Smoking Question Answer Notes Patient is a nonsmoker Alcohol Screen Question Answer Notes Did you have a drink contain ing alcohol in the past year? Yes How often did you have a dri nk containing alcohol in the past year? Monthly or less (1 point) How many drinks did you have on a typical day when you were drinking in the past year? 1 or 2 drinks (0 point) Points 1 Interpretation Negative PROBLEMS Problem Type ICD Code Onset Dates Problem Status W/U Status Risk SNOMED Code Notes Problem Colon cancer screening (Z12.11) Active confirmed 786722221 Problem Diverticulosis of large intestine without perforation or abscess without bleeding (K57.30) Active confirmed Diverticul ar disease of colon (478249868) Problem Constipation, unspecified constipation type (K59.00) Active confirmed 99410619 PLAN OF TREATMENT Pending Test Test Name Order Date Pathology 03/15/2023 Future Test Test Name Order Date COLONOSCOPY 12/22/2022 Insurance Providers Payer Name Payer Address Payer Phone Subscriber Number Group Number Insured Name Patient Relationship to Insured Coverage Start Date Coverage End Date [facility] [address] [employer] [facility] [place] [phone] [id number] SHOAIB SALINASET Self - patient is the insured MEDICAL (GENERAL) HISTORY Medical History History ICD Code Hypertension Denies NE,DM,CVA,Lung disease,renal dise ase Negative colonoscopy [place] [address] Guy leach Surgical History Surgery Date(Month/Year)
[2025-01-17 09:51] LABS: Appearance Urine Clear; Color Urine Yellow; Glucose Urine UA Negative (Negative); Leukocyte Esterase Urine Negative (Negative); Nitrite Urine Negative (Negative); Specific Gravity - Urine <= 1.005 (1.005-1.025); Urine Blood Negative (Negative); Urine Ketones Negative (Negative); Urine Protein Negative (Neg-Trace)
[2025-01-17 09:53] LABS: Bacteria Urine None Seen (None Seen); Hyaline Casts Urine 0-2 /LPF (0-2); RBC Urine 0-2 /HPF (0-2); Squamous Epithelial Cell Urine 0-2 /HPF (0-2); WBC Urine 0-5 /HPF (0-5)
[2025-01-17 09:55] LABS: Basophils Percent Auto 0.4 % (0-2); Eosinophils Percent Auto 0.4 % (0-4); Hematocrit 40.8 % (37.0-47.0); Hemoglobin 13.3 g/dl (12.0-16.0); Lymphocytes Absolute Auto 0.7 X10*3/uL (1.2-4.9); Lymphocytes Percent Auto 29.6 % (20-40); MANUAL DIFF FLAG SCAN; Mean Corpuscular HGB Conc 32.6 g/dl (31.0-35.0); Mean Corpuscular Hemoglobin 29.1 pg (27.0-33.0); Mean Corpuscular Volume 89.3 fL (80.0-98.0); Mean Platelet Volume 9.7 fL (9.4-12.3); Monocytes Absolute Auto 0.3 X10*3/uL (0.1-1.2); Monocytes Percent Auto 12.4 % (2-11); Neutrophils Absolute Auto 1.3 x10*3/uL (2.0-8.3); Neutrophils Percent Auto 57.2 % (45-73); Platelet Count 279 X10*3/uL (160-400); Red Blood Count 4.57 X10*6/uL (4.20-5.50); Red Cell Distribution Width 12.8 % (11.0-16.0); SCAN SMEAR FLAG 1
[2025-01-17 09:57] LABS: White Blood Count 2.3 X10*3/uL (4.8-10.8)
[2025-01-17 10:39] LABS: Erythrocyte Sedimentation Rate 9 MM/HR (0-20)
[2025-01-17 10:41] LABS: SLIDE REVIEW VERIFIED
[2025-01-17 10:51] LABS: Creatinine Urine 24.07 mg/dL; Total Protein Urine Random < 7 mg/dL (<12)
[2025-01-17 10:53] LABS: Alanine Aminotransferase 41 U/L (0-31); Albumin Level 4.2 g/dL (3.5-5.0); Alkaline Phosphatase 66 U/L (39-117); Anion Gap 10 (12-20); Aspartate Amino Transferase 31 U/L (5-31); Bilirubin Total 0.5 mg/dL (0.0-1.0); Blood Urea Nitrogen 12 mg/dL (9-16); C Reactive Protein < 0.04 mg/dL (< or = 0.50); Calcium 9.5 mg/dL (8.4-10.2); Carbon Dioxide 25 mmol/L (22-29); Chloride 104 mmol/L (96-108); Estimated Glomerular Filt Rate > 60; Glucose Random 92 mg/dL (60-115); Sodium 135 mmol/L (135-145); Total Protein 8.2 g/dL (6.5-8.0)
[2025-01-18 18:12] LABS: Complement C3 126 mg/dL (83-193)
[2025-01-19 09:03] LABS: Anti DNA DS Antibody <1 IU/mL
== END 2025-01-17 06:09 | disposition home or self-care (01) ==
LOC: HO.HMGCLDS 06:08
PROVIDERS: PCP Internal Medicine; Visit Provider Student in an Organized Health Care Education/Training Program
DX: M35.1 Other overlap syndromes (principal); Z79.899 Other long term (current) drug therapy
CPT/HCPCS: 36415; 80053; 81001; 82570; 84156; 85025; 85652; 86140; 86160; 86225

== ENCOUNTER 2025-01-24 07:47 | Outpatient (AMB) | payer OTHER, SELFPAY ==
--- NOTE | 2025-01-24 07:49 | A.OFFVIS_ITS ---
Vital Signs 01/24/25 07:54 Height 5 ft 8 in Weight 137 lb 12.623 oz BMI 20.9 BP 134/72 Blood Pressure Location Lt brachial Position Sitting Pulse 107 H Pulse Source Pulse Oximeter Pulse Oximetry (%) 98 Oxygen Delivery Method Room Air Intake Visit Reasons: MCTD Intake Note: Patient presents for MCTD. Allergies hydroxychloroquine Allergy (Mild, Verified 01/24/25 07:52) Hives sulfamethoxazole Allergy (Mild, Verified 01/24/25 07:52) Rash Medication List - Last Reconciled 01/24/25 by Val Gracia MD amlodipine 5 mg PO DAILY betamethasone, augmented 0.05 % 1 appl topical DAILY cholecalciferol (vitamin D3) 25 mcg PO DAILY clobetasol 0.05% 1 appl topical DAILY diphenhydramine HCl (Benadryl) 25 mg PO BEDTIME PRN HPI Comments Details: Patient is a 59-year-old female with mixed connective tissue disease who presents today for follow up Interval History: Patient last seen 10/24/[address] Whitlock. At that time she was following up after cessation of her Plaquenil secondary to rash. Patient was a anxious about other DMARDs and so she was started on amlodipine 10 mg as treatment for her Raynaud's. 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 - skin biopsy consistent with lupus, Raynaud's, puffy fingers, arthralgias, neutropenia, lymphopenia, +++MACHINE OPERATOR FARMWORKER, +SSa +Dsdna PM/Scl 75 - started on hydroxychloroquine 300 mg daily for arthralgias and cytopenias 08/2024 - had rash likely secondary to hydroxychloroquine and so it was stopped 09/2024 - Amlodipine 10mg started 09/2024 for Raynauds Initial history: This is a 59-year-old female with history of discoid lupus who presents as a new patient for me to evaluate for underlying autoimmune rheumatic disease. She states that she was diagnosed with discoid lupus + alopecia based on a skin biopsy before 2013, she had lesions on her arms, forearms, scalp, she was treated with intralesional steroids and has been using topical steroid creams intermittently. She states that her rashes been well controlled overall. She never required systemic treatment. Since January of 2023 she has developed Raynaud's, affecting her fingers, her fingers color into blue and become cold and numb especially in the cold. Never had any digital tip ulcers. She is able to reverse the episodes using a heating pad for a few minutes. She also states that she has had opinion for many years that has been monitored. She does not recall having a bone marrow biopsy. She follows up regularly with a heme/oncologist. She also noticed some stiffness of her knees and shoulders with activity, morning stiffness lasts about 1 hour until she becomes completely loose. She has noticed some puffiness of her fingers. She denies any history of DVT/PE. Denies any fevers or weight loss. She is unaware of any family history of an autoimmune rheumatic disease. 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 Review of Systems Const Details: Review of Systems Constitutional: Denies fever, chills, weight loss ENT: Denies vision changes, eye pain or eye redness, dental caries, dry mouth GI: Denies nausea, vomiting, diarrhea, abdominal pain, change in BM Pulm: Denies SOB, PEREIRA, hemoptysis, wheezing Cards: Denies chest pain, palpitations Skin: Denies Raynaud's, rash, nail changes, photosensitivity, CHANGE ADVISOR: Denies headaches, weakness, paresthesias, recurrent falls MSK: as per HPI All other systems reviewed and are unremarkable except noted above Physical Exam Vital Signs: Last Vital Signs Pulse 107 H 01/24/25 07:54 BP 134/72 01/24/25 07:54 Pulse Ox 98 01/24/25 07:54 Oxygen Delivery Method Room Air 01/24/25 07:54 BMI result Body Mass Index 20.9 Vital signs reviewed Physical Examination CONSTITUITIONAL Patient alert and cooperative. Well appearing and in no apparent painful distress HEENT Conjunctiva and sclera clear. ?Pupils equal round and reactive to light. ?No lymphadenopathy. ? CHEST/RESPIRATORY SYSTEM Normal respiratory effort and able to speak in complete sentences. ?Clear to auscultation bilaterally. ?No crackles, rales, rhonchi, wheezes heard. CARDIAC SYSTEM Regular rate and rhythm. ?S1 and S2 heard no murmurs. ?Radial pulses intact bilaterally MSK Hands: ?Good segregator strength bilaterally. No deformities noted. ?No synovitis noted to the MCPs, PIPs or DIPs. ?No tenderness to palpation of these joints. Wrists: ?Full range of motion at the wrists without pain. ?No tenderness to palpation or synovitis noted to the wrists. Elbows: Full range of motion without pain. No tenderness, weakness, swelling, increased warmth or erythema. Shoulders: Full range of motion without pain. No tenderness, weakness, swelling, increased warmth or erythema. Hips: Full range of motion without pain. Hip bursa: No tenderness to palpation Knees: ?Full range of motion. ?No tenderness, swelling, increased warmth or erythema.?No effusion or crepitations Ankles: Full range of motion. ?No tenderness, swelling, increased warmth or erythema.? Feet: ?Negative squeeze test. ?No tenderness to palpation or swelling of the MTPs. Tender points:?No tenderness to palpation of the bilateral trapezius, supraspinatus, greater trochanters, anterior costochondral junctions, bilateral gluteal areas, bilateral suboccipital muscle insertions SKIN Skin intact without rashes. Results Reviewed Results Reviewed: Laboratory Tests 06/26/24 10/13/24 01/17/25 10:17 06:25 06:16 WBC 2.3 L RBC 4.57 Hgb 13.3 Hct 40.8 Plt Count 279 Lymph # (Auto) 0.5 L 0.6 L 0.7 L ESR 9 Sodium 135 Potassium 4.0 Chloride 104 Carbon Dioxide 25 BUN 12 Creatinine 0.64 Total Bilirubin 0.5 AST 31 ALT 41 H Alkaline Phosphatase 66 C-Reactive Protein < 0.04 Total Protein 8.2 H Albumin 4.2 Laboratory Tests 06/26/24 10:17 SS-A/Ro Antibody 2.1 POS A U1 snRNA A Antibody 159 H U1 snRNA 70kD Antibody 44 H SM/MACHINE OPERATOR FARMWORKER IgG Antibody >8.0 POS A A-PM Scleroderma 75 Ab 63 H Anti-ds DNA Titer (Crith) 1:20 H Anti-ds DNA (Crithidia) Positive A PFTs 09/28/2024 - normal ECHO 03/24/2024 Conclusions: - The left ventricular systolic function is normal. The calculated ejection fraction is 63% by biplane method. - There is mild mitral annular calcification. - No obvious valvular pathology seen on this study. Findings Left Ventricle Normal left ventricular cavity size. There is mildly increased left ventricular wall thickness. The left ventricular systolic function is normal. The calculated ejection fraction is 63% by biplane method. There is no evidence of regional wall motion abnormalities. Diastolic function is normal for age. Right Ventricle Normal right ventricular cavity size and systolic function. Atria The left atrium is mildly dilated. The right atrium is normal in size. Aortic Valve There is a normal trileaflet aortic valve. There is no aortic valve stenosis. There is trace (trivial) aortic valve regurgitation. Mitral Valve There is mild mitral annular calcification. There is trace mitral valve regurgitation. There is no mitral valve stenosis. Pulmonic Valve The pulmonic valve is likely normal. Tricuspid Valve Normal tricuspid valve structure. There is mild tricuspid valve regurgitation. There is no evidence of pulmonary hypertension. Great Vessels The asc aorta is normal in size. Venous The inferior vena cava is normal in size and collapses less than 50% with inspiration. Pericardium/Pleural There is no evidence of pericardial effusion. Prior Study Comparison No significant change compared to prior study dated: 12/25/2021. 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 Drug rash Code(s): M35.1 - Other overlap syndromes Category: Medical Plan: #MCTD Patient is a 59 year female with mixed connective tissue disease here today for follow up. Continues to manage her Raynaud's conservatively as well as with passive channel johnathan 10 mg). Overall doing well with no new complaints. Sometimes gets puffiness to her hands but this will resolve on its own. No interest in DMARDs at this time. Plan - Continue amlodipine 10mg daily - PAH monitoring: ECHO and PFTs due every 2-3 years. Last done 2023 - Monitor off DMARDs - RTC 6 months - Labs before visit: CBC, CMP, ESR, CRP, C3, C4, dsDNA, UA, UPC Plan I spent 20 minutes reviewing the record and labs, taking a history, examining the patient, discussing the treatment plan and documenting in the medical record Orders: Orders Complement C3 6 Months M35.1 - Other overlap syndromes Complete Blood Count Auto Diff 6 Months M35.1 - Other overlap syndromes Protein Creatinine Ratio, Ur 6 Months M35.1 - Other overlap syndromes Anti DNA DS Antibody 6 Months M35.1 - Other overlap syndromes Complement C4 6 Months M35.1 - Other overlap syndromes Comprehensive Met. Panel 6 Months M35.1 - Other overlap syndromes C Reactive Protein 6 Months M35.1 - Other overlap syndromes Erythrocyte Sedimentation Rate 6 Months M35.1 - Other overlap syndromes UA w Microscopic 6 Months M35.1 - Other overlap syndromes Medications: New amlodipine 10 mg PO DAILY 90 tabs 1RF I73.00 - Raynaud's syndrome without ga ngrene Coding Level of Care Code Est Pt Level 3 (92171) Complex EM visit Add On G2211 Diagnoses MCTD (mixed connective tissue disease) M35.1
--- OUTSIDE RECORDS SUMMARY | 2025-01-24 07:49 | XMS_ITS | Patient Health Record ---
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 Name Role Phone Jose Montgomery MD Primary Care Provider Unavaila ble Anderson Lyn Unavailable [phone] Allergies Allergen (clinical drug ingredient) Drug/Non Drug Allergy documented on EMR Reaction Allergy Type Onset Date Status No Known Drug Allergy Unknown Drug Allergy Active Results Component Value Reference Range Notes US abdomen complete Reviewed date:03/26/2024 01:10:24 PM Interpretation: Performing Lab: Notes/Report: [address] [address] Ultrasound Report Signed Patient: Zhanna Carter MR#: [id number] 648 : 1965 Acct:[id number] Age/Sex: 58 / F ADM Date: 02/11/24 Loc: HO.US Attending Dr: Anderson Lyn MD Ordering Physician: Anderson Lyn MD Date of Service: 02/11/24 Procedure(s): US abdomen complete Accession Number(s): [id number] cc: Anderson Lyn MD; Jose Montgomery MD EXAMINATION: US ABDOMEN COMPLETE CLINICAL INFORMATION: Splenomegaly. COMPARISON: Ultrasound abdomen 10/23/2015. TECHNIQUE: Real-time imaging of the abdominal viscera. FINDINGS: PANCREAS: Normal. ABDOMINAL AORTA: The proximal, mid, and distal segments are normal in caliber. INFERIOR VENA CAVA: Visualized portions are normal. LIVER: Normal size, contour and echotexture. No evidence of focal liver lesion or intrahepatic ductal dilatation. GALLBLADDER: Normal. The gallbladder is physiologically distended without evidence of stones, sludge, polyps, wall thickening or pericholecystic fluid. COMMON BILE DUCT: Normal in caliber measuring 0.5 cm in diameter. RIGHT KIDNEY: Normal. No hydronephrosis. No renal calculi or focal parenchymal lesions. The kidney measures 11.6 cm in maximum dimension. LEFT KIDNEY: Normal. No hydronephrosis. No renal calculi or focal parenchymal lesions. The kidney measures 11.2 cm in maximum dimension. SPLEEN: Normal. The spleen measures 10.3 cm in maximum dimension. FREE FLUID: None. US/US abdomen complete IMPRESSION: Normal ultrasound examination of the abdomen. No evidence of splenomegaly. Dictated By: Ulisses Menezes MD Signed By: <Electronically signed by Ulisses Menezes MD in OV> 02/15/24 1654 DD/ 0906 TD/TT: Carpet Binder: [place] [id number] Ultrasound Report Signed Patient: Isabel Carter MR#: [id number] 648 : 1965 Acct:[id number] Age/Sex: 58 / F ADM Date: 02/11/24 Loc: HO.US Attending Dr: Anderson Lyn MD Ordering Physician: Anderson Lyn MD Date of Service: 02/11/24 Procedure(s): US abdomen complete Accession Number(s): [id number] cc: Anderson Lyn MD; Jose Montgomery MD EXAMINATION: US ABDOMEN COMPLETE CLINICAL INFORMATION: Splenomegaly. COMPARISON: Ultrasound abdomen 10/23/2015. TECHNIQUE: Real-time imaging of the abdominal viscera. FINDINGS: PANCREAS: Normal. ABDOMINAL AORTA: The proximal, mid, and distal segments are normal in caliber. INFERIOR VENA CAVA: Visualized portions are normal. LIVER: Normal size, contour and echotexture. No evidence of focal liver lesion or intrahepat ic ductal dilatation. GALLBLADDER: Normal. The gallbladder is physiologically distended without evidence of stones, sludge, polyps, wall thickening or pericholecystic fluid. COMMON BILE DUCT: Normal in caliber measuring 0.5 cm in diameter. RIGHT KIDNEY: Normal . No hydronephrosis. No renal calculi or focal parenchymal lesions. The kidney measures 11.6 cm in maximum dimension. LEFT KIDNEY: Normal. No hydronephrosis. No renal calculi or focal parenchymal lesions. The kidney measures 11.2 cm in maximum dimension. SPLEEN: Normal. The spleen measures 10.3 cm in maximum dimension. FREE FLUID: None. US/US abdomen complete IMPRESSION: Normal ultrasound examination of the abdomen. No evidence of splenomegaly. Dictated By: Ulisses Menezes MD Signed By: <Electronically signed by Ulisses Menezes MD in OV> 02/15/24 1654 DD/ 0906 TD/TT: Carpet Binder: PD Complete Blood Count Auto Di ff Reviewed date:03/26/2024 01:10:24 PM Interpretation: Performing Lab:[facility], [address] [place] [phone] Notes/Report: White Blood Count 1.9 4.8-10.8 X10*3/uL Red Blood Count 4.38 4.20-5.50 X10*6/uL Hemoglobin 12.9 12.0-16.0 g/dl Hematocrit 38.5 37.0-47.0 % Mean Corpuscular Volume 87.9 80.0-98.0 fL Mean Corpuscular Hemoglobin 29.5 27.0-33.0 pg Mean Corpuscular HGB Conc 33.5 31.0-35.0 g/dl Red Cell Distribution Width 13.2 11.0-16.0 % Platelet Count 245 160-400 X10*3/uL Mean Platelet Volume 9.8 9.4-12.3 fL Neutrophils Percent Auto 54.5 45-73 % Imm Gran Pct Auto 0.0 0.0-0.4 % Lymphocytes Percent Auto 28.8 20-40 % Monocytes Percent Auto 15.2 2-11 % Eosinophils Percent Auto 0.5 0-4 % Basophils Percent Auto 1.0 0-2 % NRBC Pct Auto 0.0 0.0-0.2 /100WBC Neutrophils Absolute Auto 1.0 2.0-8.3 x10*3/uL Imm Gran Abs Auto 0.00 0.00-0.03 X10*3/uL Lymphocytes Absolute Auto 0.6 1.2-4.9 X10*3/uL Monocytes Absolute Auto 0.3 0.1-1.2 X10*3/uL Eosinophils Absolute Auto 0.0 0.0-0.4 X10*3/uL Basophils Absolute Auto 0.0 0.0-0.2 X10*3/uL NRBC Abs Auto 0.000 0.0-0.012 X10*3/uL White Blood Count 1.9 4.8-10.8 X10*3/uL Red Blood Count 4.38 4.20-5.50 X10*6/uL Hemoglobin 12.9 12.0-16.0 g/dl Hematocrit 38.5 37.0-47.0 % Mean Corpuscular Volume 87.9 80.0-98.0 fL Mean Corpuscular Hemoglobin 29.5 27.0-33.0 pg Mean Corpuscular HGB Conc 33.5 31.0-35.0 g/dl Red Cell Distribution Width 13.2 11.0-16.0 % Platelet Count 245 160-400 X10*3/uL Mean Platelet Volume 9.8 9.4-12.3 fL Neutrophils Percent Auto 54.5 45-73 % Imm Gran Pct Auto 0.0 0.0-0.4 % Lymphocytes Percent Auto 28.8 20-40 % Monocytes Percent Auto 15.2 2-11 % Eosinophils Percent Auto 0.5 0-4 % Basophils Percent Auto 1.0 0-2 % NRBC Pct Auto 0.0 0.0-0.2 /100WBC Neutrophils Absolute Auto 1.0 2.0-8.3 x10*3/uL Imm Gran Abs Auto 0.00 0.00-0.03 X10*3/uL Lymphocytes Absolute Auto 0.6 1.2-4.9 X10*3/uL Monocytes Absolute Auto 0.3 0.1-1.2 X10*3/uL Eosinophils Absolute Auto 0.0 0.0-0.4 X10*3/uL Basophils Absolute Auto 0.0 0.0-0.2 X10*3/uL NRBC Abs Auto 0.000 0.0-0.012 X10*3/uL CORRECTED REPORT CORRECTED REPORT Comprehensive Met. Panel Reviewed date:03/26/2024 01:10:24 PM Interpretation: Performing Lab:[facility], [address] [place] [phone] Notes/Report: Sodium 136 135-145 mmol/L Potassium 4.2 3.3-5.1 mmol/L Chloride 104 96-108 mmol/L Carbon Dioxide 23 22-29 mmol/L Anion Gap 13 12-20 Blood Urea Nitrogen 9 9-16 mg/dL Creatinine 0.58 0.5-1.4 mg/dL Estimated Glomerular Filt Rate > 60 NOTE: For -[place] individuals, multiply the result by 1.210. Chronic Kidney Disease: Estimated GFR < 60 mL/min/1.73m2 Severe Kidney Disease: Estimated GFR < 15 mL/min/1.73m2 Glucose Random 87 60-115 mg/dL Calcium 9.9 8.4-10.2 mg/dL Bilirubin Total 0.5 0.0-1.0 mg/dL Aspartate Amino Transferase 32 5-31 U/L Alanine Aminotransferase 38 0-31 U/L Total Protein 7.6 6.5-8.0 g/dL Albumin Level 4.0 3.5-5.0 g/dL Alkaline Phosphatase 62 39-117 U/L Gamma Glutamyl Transpeptidas e Reviewed date:03/26/2024 01:10:24 PM Interpretation: Performing Lab:[facility], [address] [place] [phone] Notes/Report: Gamma Glutamyl Transpeptidase 19 7-33 U/L Vitamin B12 and Folate Reviewed date:03/26/2024 01:10:24 PM Interpretation: Performing Lab:[facility], [address] [place] [phone] Notes/Report: Vitamin B12 294 200-900 pg/mL NORMAL 200-900 PG/ML INDETERMINATE 160-199 PG/ML DEFICIENT < 160 PG/ML Folate 8.7 > or = 4.0 ng/mL Reference Values: > or = 4.0 ng/mL < 4.0 ng/mL suggests folate deficiency Methotrexate, aminopterin and folinic acid (leucovorin) are chemotherapeutic agents whose molecular structures are similar to folate; therefore, the Speech Language Therapist folate assay cannot be used for patients using these drugs. SLIDE REVIEW Reviewed date:03/26/2024 01:10:24 PM Interpretation: Performing Lab:[facility], [address] [place] [phone] Notes/Report: SLIDE REVIEW VERIFIED Calcium Reviewed date:08/21/2024 08:14:56 AM Interpretation: Performing Lab:[facility], [address] [place] [phone] Notes/Report: Calcium 9.8 8.4-10.2 mg/dL Parathyroid Hormone Intact Reviewed date:08/21/2024 08:14:56 AM Interpretation: Performing Lab:[facility], [address] [place] [phone] Notes/Report: Parathyroid Hormone Intact 58.9 8.7-77.1 pg/mL Reason For Referral No Information Medications Medication SIG (Take, Route, Frequency, Duration) [...] Additional Findings: Tobacco Non-User Ex-cigaret te smoker Alcohol Screen Question Answer Notes Did you have a drink contain ing alcohol in the past year? Yes How often did you have a dri nk containing alcohol in the past year? 2 to 3 times a week (3 points) How many drinks did you have on a typical day when you were drinking in the past year? 1 or 2 drinks (0 point) How often did you have 6 or more drinks on one occasion in the past year? Never (0 point) Points 3 Interpretation Positive Problems Problem Type SNOMED Code ICD Code Onset Dates Problem Status W/U Status Risk Notes Problem 4700510 Former smoker (Z87.891) Active confirmed We formulated a plan to prevent relapse and times of stress and illness. Problem 145957445424139 Right hip pain (M25.551) Active confirmed was serge disc Problem 44999618 Essential hypertension (I10) Active confirmed Return to the office on her next visit to have her blood pressure measured. Problem 77007902 Leukopenia (D72.819) Active confirmed Her total white blood cell count is again 3800. The differential is remarkable for a normal number of neutrophils and a diminished number of lymphocytes.. She has had no infections. Surveillance was continued.An ultrasound of the spleen was noted to see if it has increased in size causing a further decline in the white blood cell Problem 936235746 History of iron deficiency anemia (Z86.2) Active confirmed There is currently no sign of iron deficiency and she does not require iron supplementatio n. 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 Her total protein is elevated to 9.3 but there are no monoclonal antibodies found on serum protein electrophoresi s. The antibodies against single-strande d DNA are positive. Problem 33606506 Alopecia areata (L63.9) Active confirmed He says this has resolved. Problem 170314827 Seasonal allergies (J30.2) Active confirmed She has had no rhinitis yet this year. She is preparing for pollen season. Vital Signs Heart Rate 102 /min 07/06/2024 Temperature 98.8 degrees Fahrenheit 07/06/2024 Blood pressure diastolic 87 mm Hg 07/06/2024 Height 68 in 07/06/2024 Blood pressure systolic 139 mm Hg 07/06/2024 Weight 136 lbs 07/06/2024 BMI 20.68 kg/m2 07/06/2024 Encounters Encounter Location Date Provider Diagnosis Anderson Lyn III, MD [address] [place] [address] [place] [phone] 01/26/2024 Anderson Lyn Leukopenia D72.819 ; History of iron deficiency anemia Z86.2 ; Seasonal allergies J30.2 ; Alopecia areata L63.9 ; Discoid lupus L93.0 and Essential hypertension I10 Anderson Lyn III, MD [address] [place] [address] [place] [address] 03/29/2024 Anderson Lyn Leukopenia D72.819 ; Alopecia areata L63.9 ; Seasonal allergies J30.2 ; Essential hypertension I10 ; Right hip pain M25.551 and Former smoker Z87.891 Anderson Lyn III, MD [address] [place] [address] [place] [address] 07/06/2024 Anderson Lyn Leukopenia D72.819 ; Discoid lupus L93.0 ; Essential hypertension I10 ; History of iron deficiency anemia Z86.2 and Former smoker Z87.891 Anderson Lyn III, MD [address] [place] [address] [place] [address] 08/17/2024 Anderson Lyn Leukopenia D72.819 ; Discoid lupus L93.0 ; History of iron deficiency anemia Z86.2 ; Essential hypertension I10 ; Seasonal allergies J30.2 and Former smoker Z87.891 Anderson Lyn III, MD [address] [place] [address] [place] [address] 02/21/2024 Anderson Lyn Assessments Encounter Date Diagnosis (ICD Code) Assessment Notes Treatment Notes Treatment Clinical Notes 01/26/2024 Leukopenia (ICD-10 - D72.819) Her total white blood cell count is again 1900. The differential is unremarkable. She has had no infections. Surveillance was continued.An ultrasound of the spleen was noted to see if it has increased in size causing a further decline in the white blood cell 01/26/2024 History of iron deficiency anemia (ICD-10 - Z86.2) There is currently no sign of iron deficiency and she does not require iron supplementation. 03/29/2024 Leukopenia (ICD-10 - D72.819) Her total white blood cell count is again 1900. The differential is unremarkable. She has had no infections. Surveillance was continued.An ultrasound of the spleen was noted to see if it has increased in size causing a further decline in the white blood cell 03/29/2024 Alopecia areata (ICD-10 - L63.9) He says this has resolved. 07/06/2024 Leukopenia (ICD-10 - D72.819) Her total [...] antibodies against single-stranded DNA are positive. 08/17/2024 Leukopenia (ICD-10 - D72.819) Her total [...] The antibodies against single-stranded DNA are positive. 01/26/2024 Seasonal allergies (ICD-10 - J30.2) She has had no rhinitis yet this year. She is preparing for pollen season. 03/29/2024 Seasonal allergies (ICD-10 - J30.2) She has had no rhinitis yet this year. She is preparing for pollen season. 07/06/2024 Essential hypertension (ICD-10 - I10) The blood pressure is slightly high at 139/87 and this problem is well controlled. No additional changes are necessary. 08/17/2024 History of iron deficiency anemia (ICD-10 - Z86.2) There is currently no sign of iron deficiency and she does not require iron supplementation. 01/26/2024 Alopecia areata (ICD-10 - L63.9) He says this has resolved. 03/29/2024 Essential hypertension (ICD-10 - I10) The [...] visit to have her blood pressure measured. 01/26/2024 Discoid lupus (ICD-10 - L93.0) She continues under the care of rheumatology. Her lupus has been quiet lately. 03/29/2024 Right hip pain (ICD-10 - M25.551) was serge disc 07/06/2024 Former smoker (ICD-10 - Z87.891) We formulated a plan to prevent relapse and times of stress and illness. 08/17/2024 Seasonal allergies (ICD-10 - J30.2) She has had no rhinitis yet this year. She is preparing for pollen season. 01/26/2024 Essential hypertension (ICD-10 - I10) The blood pressure is 128/90 and this problem is well controlled. No additional changes are necessary. 03/29/2024 Former smoker (ICD-10 - Z87.891) We formulated a plan to prevent relapse and times of stress and illness. 08/17/2024 Former smoker (ICD-10 - Z87.891) We formulated a plan to prevent relapse and times of stress and illness. Plan Of Treatment Pending Test Test Name Order Date PROFILE, RANDOM (COMPREHENSIVE METABOLIC ) 11/23/2019 PROFILE, RANDOM (COMPREHENSIVE METABOLIC ) 12/09/2022 PROFILE, RANDOM (COMPREHENSIVE METABOLIC ) 05/12/2018 PROFILE, RANDOM (COMPREHENSIVE METABOLIC ) 07/06/2024 PROFILE, RANDOM (COMPREHENSIVE METABOLIC ) 01/20/2019 PROFILE, RANDOM (COMPREHENSIVE METABOLIC ) 12/04/2021 PROFILE, RANDOM (COMPREHENSIVE METABOLIC ) 05/27/2020 PROFILE, RANDOM (COMPREHENSIVE METABOLIC ) 07/28/2023 PROFILE, RANDOM (COMPREHENSIVE METABOLIC ) 05/18/2019 PROFILE, RANDOM (COMPREHENSIVE METABOLIC ) 09/22/2018 PROFILE, RANDOM (COMPREHENSIVE METABOLIC ) 06/04/2022 PROFILE, RANDOM (COMPREHENSIVE METABOLIC ) 01/06/2018 PROFILE, RANDOM (COMPREHENSIVE METABOLIC ) 11/28/2020 PROFILE, RANDOM (COMPREHENSIVE METABOLIC ) 03/29/2024 PROFILE, RANDOM (COMPREHENSIVE METABOLIC ) 01/26/2024 GGT 01/26/2024 VITAMIN B12 AND FOLATE 01/26/2024 CBC w DIFF 05/29/2021 CBC w DIFF 11/23/2019 CBC w DIFF 12/09/2022 CBC w DIFF 05/12/2018 CBC w DIFF 01/26/2024 CBC w DIFF 01/20/2019 CBC w DIFF 12/04/2021 CBC w DIFF 05/27/2020 CBC w DIFF 07/28/2023 CBC w DIFF 09/22/2018 CBC w DIFF 06/04/2022 CBC w DIFF 01/06/2018 CBC w DIFF 11/28/2020 CBC w DIFF 03/29/2024 CBC with MANUAL DIFFERENTIAL 05/18/2019 SED RATE (ESR) 09/22/2018 MAMMOGRAM DIGITAL BILATERAL SCREEN 05/12 US ABD 01/26/2024 CBC WITH AUTO DIFF 07/06/2024 Calcium 07/06/2024 Parathyroid Hormone Intact 07/06/2024 Next Appt Details Provider Name:Anderson Eboni, 02/15/2025 09:00:00 AM, [address] [place] [address] DR, [address], [place], [id number], Insurance Providers Payer Name Payer Address Payer Phone Subscriber Number Group Number Insured Name Patient Relationship to Insured Coverage Start Date Coverage End Date [address] [facility] [place] [phone] [id number] Zhanna Carter Self - patient is the insured Medical (General) History Medical History History ICD Code Discoid Lupus Alopecia areata 704.00 essential hypertension seasonal allergies benign fibroma breast iron deficiency anemia 2010 corrective lenses chronic leukopenia Surgical History Surgery Date(Month/Year) ultrasound-guided biopsy left breast, 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 Lee 09/2010
--- OUTSIDE RECORDS SUMMARY | 2025-01-24 07:49 | XMS_ITS ---
Author Organization Anderson Lyn III, MD Address [address] [place] [address] Care Team Providers Care Ballistics Expert Forensic Name Role Phone Jose Montgomery MD Primary Care Provider Anderson Mcnally Unavailable [phone] Allergies Allergen (clinical drug ingredient) Drug/Non Drug [...] Date Provider Diagnosis Anderson Lyn III, MD [address] [place] [address] [address], [place] [address] 07/06/2024 Anderson Lyn Leukopenia D72.819 ; Discoid [...] Provider Name:Anderson Lyn, 02/15/2025 09:00:00 AM, [address] [place] [place], [place], [address], Progress Notes * Zhanna CARTERDOB:1965 (59 yo F)Acc No.[id number]:07/06/2024 Progress Notes Patient:?Zhanna Carter Provider:?Anderson Lyn MD :1965???Age:59 Y???Sex:Female D ate:07/06/2024 Address:[address] [place] [address] [id number] Pcp:Jose Montgomery MD Subjective: * Chief Complaints: * ???LeukocytopeniaDiscoid lup usAllergiesIron deficiencyHypertension * HPI: ???COVID-19 Screening:? She returns for surveillance of her leukopenia. She has had no infections. 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 Comprehensive blood work has been done. On [...] They have no children. She works for [employer] in the [employer] department and has no occupational exposures. She is not a Evangelical. * Medications:?TakingClobetaso l Propionate 0.05 % Gel [...] Lyn MD Date:?06/22 Generated for Printi ng/Fasarang/eTransmitting on:?01/24/2025 07:49 AM EST History and Physical Notes * HPI (History of Present Illness) Category Sub-Category Detail Notes COVID-19 Screening Questions Have you had any new onset fever, chills, cough, congestion, sore throat, shortness of breath, muscle aches?: No Have you been exposed to the virus withi n the last 10 days?: No Have you travelled internationally in [facility] last 10 days?: No Have [...]
--- OUTSIDE RECORDS SUMMARY | 2025-01-24 07:50 | XMS_ITS | Patient Health Record ---
Author Organization [facility] Address [address] [place] [address] Care Team Providers Care Roof Cement And Paint Maker Name Role Phone Jose Montgomery MD Primary Care Provider Anderson Kaur Unavailable [phone] Allergies No Known Allergies Reason For Referral No Information Medications Medication SIG (Take, Route, Frequency, Duration) Notes Start Date End Date Status Clobetasol Propionate Active Betamethasone Dipropionate 0.05 % APPLY TWICE DAILY NEEDED FOR FACE AND BODY External for 30 Active amLODIPine Besylate 2.5 MG TAKE 1 TABLET BY MOUTH EVERY DAY Oral for 90 Active Immunizations Vaccine Route Administration Date Status Comme nts Influenza Unknown 12/22/2022 Refused Social History Tobacco Use: Social History Observation Description Date Details (start date - stop date) Never Smoker NA - NA Tobacco Use/Smoking Question Answer Notes Patient is [...] drinks (0 point) Points 1 Interpretation Negative Section Notes: Nonsmoker, occasional glass of wine Problems Problem Type SNOMED Code ICD Code Onset Dates Problem Status W/U Status Risk Notes Problem 218451076 Colon cancer screening (Z12.11) Active confirmed Problem Diverticular disease of colon (434345826) Diverticulosis of large intestine without perforation or abscess without bleeding (K57.30) Active confirmed Problem 13126628 Constipation, unspecified constipation type (K59.00) Active confirmed Plan Of Treatment Pending Test Test Name Order Date Pathology 03/15/2023 Future Test Test Name Order Date COLONOSCOPY 12/22/2022 Insurance Providers Payer Name Payer Address Payer Phone Subscriber Number Group Number Insured Name Patient Relationship to Insured Coverage Start Date Coverage End Date [facility] [address] [place] [phone] [id number] AMNA SALINAS Self - patient is the insured Medical (General) History Medical History History ICD Code Hypertension Denies AR,DM,CVA,Lung disease,renal dise ase Negative colonoscopy [place] [address] Guy leach Surgical History Surgery Date(Month/Year)
--- OUTSIDE RECORDS SUMMARY | 2025-01-24 07:50 | XMS_ITS ---
Author Organization Anderson Lyn III, MD Address [address] [place] [address] [place] [address] Care Team Providers Care Hand Reamer Name Role Phone Jose Montgomery MD Primary Care Provider Anderson Mcnally Unavailable [phone] Allergies Allergen (clinical drug ingredient) Drug/Non Drug [...] Date Provider Diagnosis Anderson Lyn III, MD [address] [place] [address] [place] [address] 08/17/2024 Anderson Lyn Leukopenia D72.819 ; Discoid [...] OV Provider Name:Anderson Lyn, 02/15/2025 09:00:00 AM, [address] [place] [address] [address] [place] [address], [place], [address], Progress Notes * Zhanna CARTERDOB:1965 (59 yo F)Acc No.[id number]:08/17/2024 Patient:?Zhanna CARTER Provider:?Anderson Lyn MD :1965???Age:59 Y???Sex:Female D ate:08/17/2024 Address:[address] [place] [address], [id number] Pcp:Jose Montgomery MD Subjective: * Chief Complaints: [...] rendering services:?{...} [address] [facility] [address] ?Location of patient:?address listed in demographics for [...] exposures. She is not a Lutheran. * Medications:?TakingClobetaso l Propionate 0.05 % Gel [...] urged to quit.?08/17/2024 * Follow Up:?As Scheduled ([place] son: OV) * Images: * Sign off status: Completed true * Provider:?Anderson Lyn MD Date:?07/24 Generated for Dasia beard/Jonelle/Chica on:?01/24/2025 07:49 AM EST History and Physical Notes * HPI (History of Present Illness) Category Sub-Category Detail Notes Telehealth Location of [facility] rendering services:: {...} [address] [place] [id number] Location of patient:: address listed in demographics [...]
--- OUTSIDE RECORDS SUMMARY | 2025-01-24 07:50 | XMS_ITS ---
Author Organization Anderson Lyn III, MD Address [address] [place] [address] Care Team Providers Care Ammonium Nitrate Crystallizer Name Role Phone Jose Montgomery MD Primary Care Provider Anderson Mcnally Unavailable [phone] Allergies Allergen (clinical drug ingredient) Drug/Non Drug [...] Problem Status W/U Status Risk Notes Problem 3624808 Former smoker (Z87.891) Active confirmed We formulated [...] Provider Diagnosis Anderson Lyn III, MD [address] [place] [address] [place] [address] 03/29/2024 Anderson Lyn Leukopenia D72.819 ; Alopecia [...] labs Provider Name:Anderson Lyn, 02/15/2025 09:00:00 AM, [address] [place] [address] [address], [place], [address], Progress Notes * Zhanna CARTERDOB:1965 (58 yo F)Acc No.[id number]:03/29/2024 Progress Notes Patient:?Zhanna Carter Provider:?Anderson Lyn MD :1965???Age:58 Y???Sex:Female D ate:03/29/2024 Address:[address] [place] [address] [address] [place], [id number] Pcp:Jose Montgomery MD Subjective: * Chief Complaints: [...] They have no children. She works for [employer] in the [employer] department and has no occupational exposures. She is not a Restorationism. * Medications:?TakingClobetaso l Propionate 0.05 % Gel [...] - 03/21/2024) (Collection Date - 03/21/2024)?ValueReference Range?Vitamin [id number] - pg/mL ?Folate8.7> or = 4.0 - ng/mL ???Lab:Gamma Glutamyl Transpeptidase (Order Date - 03/21/2024) (Collection Date - 03/21/2024)?ValueReference Range?Gamma Glutamyl Iyzpvhvxzxzsbm88 7-33 - U/L * Examination: ???General Examination: [...] Lyn MD Date:?06/2024 Generated for Dasia beard/Jonelle/Chica on:?01/24/2025 07:49 AM [...]
[2025-01-24 07:54] VITALS: BP 134/72; PULSE 107; O2SAT 98; BMI 20.9
== END 2025-01-24 08:26 | disposition home or self-care (01) ==
PROVIDERS: PCP Internal Medicine; Visit Provider Student in an Organized Health Care Education/Training Program
DX: M35.1 Other overlap syndromes (principal)
CPT/HCPCS: 99213

== ENCOUNTER 2025-02-08 15:11 | Outpatient (AMB) | payer OTHER, SELFPAY ==
[2025-02-08 15:28] VITALS: BP 130/80; PULSE 100; TEMP 36.7; O2SAT 98; BMI 21.3
--- NOTE | 2025-02-08 15:28 | MHC.PC.OV ---
Vital Signs 02/08/25 15:28 Height 5 ft 8 in Weight 140 lb BMI 21.3 BP 130/80 Blood Pressure Location Lt brachial Position Sitting Pulse 100 Pulse Source Pulse Oximeter Temp 98.1 F Temp Source Axillary Pulse Oximetry (%) 98 Oxygen Delivery Method Room Air Intake Visit Reasons: routine Intake Note: Follow up appt. Lithographic Proofer Apprentice Required: No Is last menstrual period known: No Post menopausal: No Patient : No Allergies hydroxychloroquine Allergy (Mild, Verified 02/08/25 15:34) Hives sulfamethoxazole Allergy (Mild, Verified 02/08/25 15:34) Rash Dental Screening Did you have a dental visit in the last 12 months?: Yes Did you have a dental problem in the last 6 months where you did not have access to dental care?: No Was dental information given to patient?: Yes HPI HPI Comments History of Present Illness Details Patient is a 59-year-old female with a mixed connective tissue disease, Raynauds, anxiety, diverticulosis, colon polyps presenting for follow up. Last saw PCP Oct 2024 Rheum-Follows with Dr Gracia. 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 - skin biopsy consistent with lupus, Raynaud's, puffy fingers, arthralgias, neutropenia, lymphopenia, +++GANTRY RIGGER, +SSa +Dsdna PM/Scl 75 - started on hydroxychloroquine 300 mg daily for arthralgias and cytopenias 08/2024- - had rash likely secondary to hydroxychloroquine and so it was stopped 09/2024 - Amlodipine 10mg started 09/2024 for Raynauds Follows with gynecology: Dr Jorge Waggoner [facility] Colonoscopy is up to date-Dr Mccall/James HILLMAN CONSTITUTIONAL: Denies weight loss, fever and chills. HEENT: Denies changes in vision and hearing. RESPIRATORY: Denies SOB and cough. CV: Denies palpitations and CP GI: Denies abdominal pain, nausea, vomiting and diarrhea. : Denies dysuria and urinary frequency. MSK: Denies new myalgia and joint pain. SKIN: Denies rash and pruritus. NEUROLOGICAL: Denies headache PSYCHIATRIC: Denies recent changes in mood. PHYSICAL EXAM: GENERAL: Alert and oriented x 3. NAD EYES: EOMI. Anicteric. HENT: Moist mucous membranes. No scleral icterus. No cervical lymphadenopathy. LUNGS: Clear to auscultation bilaterally. CARDIOVASCULAR: Regular rate and rhythm. No murmur. No JVD. ABDOMEN: Soft, non-tender +bs EXTREMITIES: No edema. Non-tender. SKIN: No rashes or lesions. Warm. NEUROLOGIC: No focal neurological deficits. CN II-XII grossly intact PSYCHIATRIC: Cooperative. 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 Current occupational exposures/hazards: No Cognitive needs: No Hearing needs: No Vision needs: Yes Physical exam (Primary Care) Vital Signs: Last Vital Signs Temp 98.1 F 02/08/25 15:28 Pulse 100 02/08/25 15:28 BP 130/80 02/08/25 15:28 Pulse Ox 98 02/08/25 15:28 Oxygen Delivery Method Room Air 02/08/25 15:28 BMI result Body Mass Index 21.3 Tobacco/Smoking Status: Tobacco use Status Patient Tobacco Use Status Former Tobacco user 02/08/25 15:37 Tobacco use type Cigarette 02/08/25 15:37 e-Cigarette/Vaping Use Former Use 02/08/25 15:37 Coding Level of Care Code Est Pt Level 4 (18582) Diagnoses MCTD (mixed connective tissue disease) M35.1 Assessment & Plan Assessment & Plan (1) MCTD (mixed connective tissue disease): Comment: dx 08/2024 (skin biopsy consistent with lupus, Raynaud's, puffy fingers, arthralgias, neutropenia, lymphopenia, +++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 Drug rash Code(s): M35.1 - Other overlap syndromes Category: Medical Plan 59 year old female to establish care. Past medical, surgical, social and family history reviewed MCTD, raynauds-continue follow up with rheumatology Orders: Orders Complete Blood Count Auto Diff 6 Months M35.1 - Other overlap syndromes, Z13.0 - Encounter for screening for diseases of the blood and blood-forming organs and certain disorders involving the immune mechanism, Z13.220 - Encounter for screening for lipoid disorders, Z13.6 - Encounter for screening for cardiovascular disorders Lipid Panel 6 Months M35.1 - Other overlap syndromes, Z13.0 - Encounter for screening for diseases of the blood and blood-forming organs and certain disorders involving the immune mechanism, Z13.220 - Encounter for screening for lipoid disorders, Z13.6 - Encounter for screening for cardiovascular disorders Comprehensive Met. Panel 6 Months M35.1 - Other overlap syndromes, Z13.0 - Encounter for screening for diseases of the blood and blood-forming organs and certain disorders involving the immune mechanism, Z13.220 - Encounter for screening for lipoid disorders, Z13.6 - Encounter for screening for cardiovascular disorders TSH reflex Free T4 6 Months M35.1 - Other overlap syndromes, Z13.0 - Encounter for screening for diseases of the blood and blood-forming organs and certain disorders involving the immune mechanism, Z13.220 - Encounter for screening for lipoid disorders, Z13.6 - Encounter for screening for cardiovascular disorders
--- OUTSIDE RECORDS SUMMARY | 2025-02-08 17:35 | XMS_ITS ---
Author Organization Anderson Lyn III, MD Address [address] [place] [address] Care Team Providers Care System Administrator Name Role Phone Jose Montgomery MD Primary Care Provider Anderson Mcnally Unavailable [phone] Allergies Allergen (clinical drug ingredient) Drug/Non Drug [...] Provider Diagnosis Anderson Lyn III, MD [address] [place] [address] [address], [place] [address] 07/06/2024 Anderson Lyn Leukopenia D72.819 ; Discoid [...] Provider Name:Anderson Lyn, 02/15/2025 09:00:00 AM, [address] [facility] [place], [place], [address], Progress Notes * Zhanna CARTERDOB:1965 (59 yo F)Acc No.[id number]:07/06/2024 Progress Notes Patient:?Zhanna Carter Provider:?Anderson Lyn MD :1965???Age:59 Y???Sex:Female D ate:07/06/2024 Address:[address] [place] [address] [place] [id number] Pcp:Jose Montgomery MD Subjective: * Chief Complaints: * ???LeukocytopeniaDiscoid lup usAllergiesIron deficiencyHypertension * HPI: ???COVID-19 Screening:? She returns for surveillance of her leukopenia. She has had no infections. 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 Comprehensive blood work has been done. On [...] They have no children. She works for [employer] in the [employer] department and has no occupational exposures. She [...] Provider:?Anderson Lyn MD Date:?06/22 Generated for Printi ng/Faxing/eTransmitting on:?02/08/2025 05:34 PM EDT History and Physical Notes * HPI [...]
--- OUTSIDE RECORDS SUMMARY | 2025-02-08 17:35 | XMS_ITS | Patient Health Record ---
Author Organization [facility] Address [address] [place] [address] Care Team Providers Care Stonehand Name Role Phone Jose Montgomery MD Primary Care Provider Anderson Kaur Unavailable [phone] Allergies No Known Allergies Reason For Referral [...] Problem Status W/U Status Risk Notes Problem 595174432 Colon cancer screening (Z12.11) Active confirmed Problem Diverticular disease of colon (492050248) Diverticulosis of large intestine without perforation or abscess without bleeding (K57.30) Active confirmed Problem 97570765 Constipation, unspecified constipation type (K59.00) Active confirmed Plan Of Treatment Pending Test Test Name Order Date Pathology 03/15/2023 Future Test Test Name Order Date COLONOSCOPY 12/22/2022 Insurance Providers Payer Name Payer Address Payer Phone Subscriber Number Group Number Insured Name Patient Relationship to Insured Coverage Start Date Coverage End Date [facility] [address] [place] [phone] [id number] AMNA SALINAS Self - patient is the insured Medical (General) History Medical History History ICD Code Hypertension Denies IA,DM,CVA,Lung disease,renal dise ase Negative colonoscopy [place] [address] Guy leach Surgical History Surgery Date(Month/Year)
--- OUTSIDE RECORDS SUMMARY | 2025-02-08 17:35 | XMS_ITS ---
Author Organization Anderson Lyn III, MD Address [address] [place] [address] Care Team Providers Care Trainer Name Role Phone Jose Montgomery MD Primary Care Provider Anderson Mcnally Unavailable [phone] Allergies Allergen (clinical drug ingredient) Drug/Non Drug [...] Problem Status W/U Status Risk Notes Problem 0759187 Former smoker (Z87.891) Active confirmed We formulated [...] Provider Diagnosis Anderson Lyn III, MD [address] [place] [address] [place] [address] 03/29/2024 Anderson Lyn Leukopenia D72.819 ; Alopecia [...] labs Provider Name:Anderson Lyn, 02/15/2025 09:00:00 AM, [address] [place] [address] [address] [place], [place], [address], Progress Notes * Zhanna CARTERDOB:1965 (58 yo F)Acc No.[id number]:03/29/2024 Progress Notes Patient:?Zhanna Carter Provider:?Anderson Lyn MD :1965???Age:58 Y???Sex:Female D ate:03/29/2024 Address:[address] [place] [address] [address] [place], [phone] Pcp:Jose Montgomery MD Subjective: * Chief Complaints: [...] They have no children. She works for [employer] in the [employer] department and has no occupational exposures. She is not a Jain. * Medications:?TakingClobetaso l Propionate 0.05 % Gel [...] - 03/21/2024) (Collection Date - 03/21/2024)?ValueReference Range?Vitamin [id number] - pg/mL ?Folate8.7> or = 4.0 - ng/mL ???Lab:Gamma Glutamyl Transpeptidase (Order Date - 03/21/2024) (Collection Date - 03/21/2024)?ValueReference Range?Gamma Glutamyl Bfijtpgswhgnsy31 7-33 - U/L * Examination: ???General Examination: [...] Lyn MD Date:?06/2024 Generated for Dasia beard/Jonelle/Chica on:?02/08/2025 05:35 PM EDT History and Physical Notes * HPI (History of Present Illness) Category Sub-Category Detail Notes COVID-19 Screening Questions Have you had any new onset fever, chills, cough, congestion, sore throat, shortness of breath, muscle aches?: No Have you been exposed to the virus withi n the last 10 days?: No Have you travelled internationally in [facility] last 10 days?: No Have you [...]
--- OUTSIDE RECORDS SUMMARY | 2025-02-08 17:35 | XMS_ITS ---
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 Name Role Phone Jose Montgomery MD Primary Care Provider Anderson Mcnally Unavailable [phone] Allergies Allergen (clinical drug ingredient) Drug/Non Drug [...] Date Provider Diagnosis Anderson Lyn III, MD [address] [place] [address] [place] [address] 08/17/2024 Anderson Lyn Leukopenia D72.819 ; Discoid [...] OV Provider Name:Anderson Lyn, 02/15/2025 09:00:00 AM, [address] [place] [address] [address] [place] [address], [place], [address], Progress Notes * Zhanna CARTERDOB:1965 (59 yo F)Acc No.[id number]:08/17/2024 Patient:?Zhanna CARTER Provider:?Anderson Lyn MD :1965???Age:59 Y???Sex:Female D ate:08/17/2024 Address:[address] [place] [address], [phone] Pcp:Jose Montgomery MD Subjective: * Chief Complaints: [...] rendering services:?{...} [address] [facility] [address] ?Location of patient:?address listed in demographics for [...] no occupational exposures. She is not a Oriental orthodox. * Medications:?TakingClobetaso l Propionate 0.05 % Gel [...] urged to quit.?08/17/2024 * Follow Up:?As Scheduled (Adeline son: OV) * Images: * Sign off status: Completed true * Provider:?Anderson Lyn MD Date:?07/24 Generated for Dasia beard/Jonelle/eTaxel on:?02/08/2025 05:35 PM EDT History and Physical Notes * HPI (History of Present Illness) Category Sub-Category Detail Notes Telehealth Location of [facility] rendering services:: {...} [address] [place] [id number] Location of patient:: address listed in demographics [...]
--- OUTSIDE RECORDS SUMMARY | 2025-02-08 17:35 | XMS_ITS | Patient Health Record ---
Author Organization Anderson Lyn III, MD Address [address] [place] [address] Care Team Providers Care Unstacker Name Role Phone Jose Montgomery MD Primary Care Provider Unavaila ble Anderson Lyn Unavailable [phone] Allergies Allergen (clinical drug ingredient) Drug/Non Drug Allergy documented on EMR Reaction Allergy Type Onset Date Status No Known Drug Allergy Unknown Drug Allergy Active Results Component Value Reference Range Notes US abdomen complete Reviewed date:03/26/2024 01:10:24 PM Interpretation: Performing Lab: Notes/Report: [address] [address] Ultrasound Report Signed Patient: Zhanna Carter MR#: [id number] : 1965 Acct:[id number] Age/Sex: 58 / F ADM Date: 02/11/24 Loc: HO.US Attending Dr: Anderson Lyn MD Ordering Physician: Anderson Lyn MD Date of Service: 02/11/24 Procedure(s): US abdomen complete Accession Number(s): [id number] cc: Anderson Lyn MD; Jose Montgomery MD [...] in OV> 02/15/24 1654 DD/ 0906 TD/TT: [employer] Supervisor: [place] [address] Ultrasound Report Signed Patient: Isabel Carter MR#: [id number] : 1965 Acct:[id number] Age/Sex: 58 / F ADM Date: 02/11/24 Loc: HO.US Attending Dr: Anderson Lyn MD Ordering Physician: Anderson Lyn MD Date of Service: 02/11/24 Procedure(s): US abdomen complete Accession Number(s): [id number] cc: Anderson Lyn MD; Jose Montgomery MD [...] in OV> 02/15/24 1654 DD/ 0906 TD/TT: [employer] Supervisor: PD Complete Blood Count Auto Di ff Reviewed date:03/26/2024 01:10:24 PM Interpretation: Performing Lab:[facility], [address] [place] [phone] Notes/Report: White Blood Count 1.9 4.8-10.8 X10*3/uL [...] Panel Reviewed date:03/26/2024 01:10:24 PM Interpretation: Performing Lab:[facility], [address] [place] [phone] Notes/Report: Sodium 136 135-145 mmol/L Potassium 4.2 3.3-5.1 mmol/L Chloride 104 96-108 mmol/L Carbon Dioxide 23 22-29 mmol/L Anion Gap 13 12-20 Blood Urea Nitrogen 9 9-16 mg/dL Creatinine 0.58 0.5-1.4 mg/dL Estimated Glomerular Filt Rate > 60 NOTE: For -[place]ore[place] individuals, multiply the result by 1.210. Chronic [...] e Reviewed date:03/26/2024 01:10:24 PM Interpretation: Performing Lab:[facility], [address] [place] [phone] Notes/Report: Gamma Glutamyl Transpeptidase 19 7-33 U/L Vitamin B12 and Folate Reviewed date:03/26/2024 01:10:24 PM Interpretation: Performing Lab:[facility], [address] [place] [phone] Notes/Report: Vitamin B12 294 200-900 pg/mL NORMAL 200-900 PG/ML INDETERMINATE 160-199 PG/ML DEFICIENT < 160 PG/ML Folate 8.7 > or = 4.0 ng/mL Reference Values: > or = 4.0 ng/mL < 4.0 ng/mL suggests folate deficiency Methotrexate, aminopterin and folinic acid (leucovorin) are chemotherapeutic agents whose molecular structures are similar to folate; therefore, the Globe Mounter folate assay cannot be used for patients using these drugs. SLIDE REVIEW Reviewed date:03/26/2024 01:10:24 PM Interpretation: Performing Lab:[facility], [address] [place] [phone] Notes/Report: SLIDE REVIEW VERIFIED Calcium Reviewed date:08/21/2024 08:14:56 AM Interpretation: Performing Lab:[facility], [address] [place] [phone] Notes/Report: Calcium 9.8 8.4-10.2 mg/dL Parathyroid Hormone Intact Reviewed date:08/21/2024 08:14:56 AM Interpretation: Performing Lab:[facility], [address] [place] [phone] Notes/Report: Parathyroid Hormone Intact 58.9 8.7-77.1 pg/mL [...] Problem Status W/U Status Risk Notes Problem 8153606 Former smoker (Z87.891) Active confirmed We formulated a plan to prevent relapse and times of stress and illness. Problem 502570852448569 Right hip pain (M25.551) Active confirmed was serge disc Problem 94792213 Essential hypertension (I10) Active confirmed Return to the office on her next visit to have her blood pressure measured. Problem 13937770 Leukopenia (D72.819) Active confirmed Her total white blood cell count is again 3800. The differential is remarkable for a normal number of neutrophils and a diminished number of lymphocytes.. She has had no infections. Surveillance was continued.An ultrasound of the spleen was noted to see if it has increased in size causing a further decline in the white blood cell Problem 451629085 History of iron deficiency anemia (Z86.2) Active confirmed There is currently no sign of iron deficiency and she does not require iron supplementatio n. 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 Her total protein is elevated to 9.3 but there are no monoclonal antibodies found on serum protein electrophoresi s. The antibodies against single-strande d DNA are positive. Problem 51289798 Alopecia areata (L63.9) Active confirmed He says this has resolved. Problem 795507883 Seasonal allergies (J30.2) Active confirmed She has [...] Date Provider Diagnosis Anderson Lyn III, MD [address] [place] [address] [place] [address] 03/29/2024 Anderson Lyn Leukopenia D72.819 ; Alopecia areata L63.9 ; Seasonal allergies J30.2 ; Essential hypertension I10 ; Right hip pain M25.551 and Former smoker Z87.891 Anderson Lyn III, MD [address] [place] [address] [place] [address] 07/06/2024 Anderson Lyn Leukopenia D72.819 ; Discoid lupus L93.0 ; Essential hypertension I10 ; History of iron deficiency anemia Z86.2 and Former smoker Z87.891 Anderson Lyn III, MD [address] [place] [address] [address] [place] [address] 08/17/2024 Anderson Lyn Leukopenia D72.819 ; Discoid lupus L93.0 ; History of iron deficiency anemia Z86.2 ; Essential hypertension I10 ; Seasonal allergies J30.2 and Former smoker Z87.891 Anderson Lyn III, MD [address] [place] [address] [address] [place] [address] 02/21/2024 Anderson Lyn Assessments Encounter Date Diagnosis [...] The antibodies against single-stranded DNA are positive. 03/29/2024 Seasonal allergies (ICD-10 - J30.2) She [...] she does not require iron supplementation. 03/29/2024 Essential hypertension (ICD-10 - I10) The [...] visit to have her blood pressure measured. 03/29/2024 Right hip pain (ICD-10 - M25.551) was serge disc 07/06/2024 Former smoker (ICD-10 - Z87.891) We formulated a plan to prevent relapse and times of stress and illness. 08/17/2024 Seasonal allergies (ICD-10 - J30.2) She has had no rhinitis yet this year. She is preparing for pollen season. 03/29/2024 Former smoker (ICD-10 - Z87.891) We formulated a plan to prevent relapse and times of stress and illness. 08/17/2024 Former smoker (ICD-10 - Z87.891) We formulated a plan to prevent relapse and times of stress and illness. Plan Of Treatment Pending Test Test Name Order Date PROFILE, RANDOM (COMPREHENSIVE METABOLIC ) 05/18/2019 PROFILE, RANDOM (COMPREHENSIVE METABOLIC ) 09/22/2018 PROFILE, RANDOM (COMPREHENSIVE METABOLIC ) 06/04/2022 PROFILE, RANDOM (COMPREHENSIVE METABOLIC ) 01/06/2018 PROFILE, RANDOM (COMPREHENSIVE METABOLIC ) 11/28/2020 PROFILE, RANDOM (COMPREHENSIVE METABOLIC ) 03/29/2024 PROFILE, RANDOM (COMPREHENSIVE METABOLIC ) 01/26/2024 PROFILE, RANDOM (COMPREHENSIVE METABOLIC ) 11/23/2019 PROFILE, RANDOM (COMPREHENSIVE METABOLIC ) 12/09/2022 PROFILE, RANDOM (COMPREHENSIVE METABOLIC ) 05/12/2018 PROFILE, RANDOM (COMPREHENSIVE METABOLIC ) 07/06/2024 PROFILE, RANDOM (COMPREHENSIVE METABOLIC ) 01/20/2019 PROFILE, RANDOM (COMPREHENSIVE METABOLIC ) 12/04/2021 PROFILE, RANDOM (COMPREHENSIVE METABOLIC ) 05/27/2020 PROFILE, RANDOM (COMPREHENSIVE METABOLIC ) 07/28/2023 GGT 01/26/2024 VITAMIN B12 AND FOLATE 01/26/2024 CBC w DIFF 05/27/2020 CBC w DIFF 07/28/2023 CBC w DIFF 09/22/2018 CBC w DIFF 06/04/2022 CBC w DIFF 01/06/2018 CBC w DIFF 11/28/2020 CBC w DIFF 03/29/2024 CBC w DIFF 05/29/2021 CBC w DIFF 11/23/2019 CBC w DIFF 12/09/2022 CBC w DIFF 05/12/2018 CBC w DIFF 01/26/2024 CBC w DIFF 01/20/2019 CBC w DIFF 12/04/2021 CBC with MANUAL DIFFERENTIAL 05/18/2019 SED RATE (ESR) 09/22/2018 MAMMOGRAM DIGITAL BILATERAL SCREEN 05/12 US ABD 01/26/2024 CBC WITH AUTO DIFF 07/06/2024 Calcium 07/06/2024 Parathyroid Hormone Intact 07/06/2024 Next Appt Details Provider Name:Anderson Coppolane, 02/15/2025 09:00:00 AM, [address] [place] [address] [place], [address], Insurance Providers Payer Name Payer Address Payer Phone Subscriber Number Group Number Insured Name Patient Relationship to Insured Coverage Start Date Coverage End Date [facility] [address] [facility] [address] [place] [phone] [id number] Zhanna Carter Self - patient is the insured Medical (General) History Medical History History ICD Code Discoid Lupus Alopecia areata 704.00 essential hypertension seasonal allergies benign fibroma breast iron deficiency anemia 2010 corrective lenses chronic leukopenia Surgical History Surgery Date(Month/Year) ultrasound-guided biopsy left breast, 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 Lee 09/2010
== END 2025-02-08 15:55 | disposition home or self-care (01) ==
LOC: HO.HMCHD 15:11
PROVIDERS: PCP Internal Medicine; Visit Provider Internal Medicine
DX: M35.1 Other overlap syndromes (principal)

== ENCOUNTER 2025-02-08 16:01 | Outpatient (REF) | payer OTHER, SELFPAY ==
[2025-02-08 16:40] LABS: MANUAL DIFF FLAG NO
[2025-02-08 17:16] LABS: Basophils Percent Auto 0.7 % (0-2); Eosinophils Percent Auto 0.3 % (0-4); Hematocrit 39.1 % (37.0-47.0); Hemoglobin 13.2 g/dl (12.0-16.0); Lymphocytes Absolute Auto 0.8 X10*3/uL (1.2-4.9); Lymphocytes Percent Auto 26.1 % (20-40); Mean Corpuscular HGB Conc 33.8 g/dl (31.0-35.0); Mean Corpuscular Hemoglobin 29.5 pg (27.0-33.0); Mean Corpuscular Volume 87.5 fL (80.0-98.0); Mean Platelet Volume 9.4 fL (9.4-12.3); Monocytes Absolute Auto 0.3 X10*3/uL (0.1-1.2); Monocytes Percent Auto 10.9 % (2-11); Neutrophils Absolute Auto 1.9 x10*3/uL (2.0-8.3); Platelet Count 242 X10*3/uL (160-400); Red Blood Count 4.47 X10*6/uL (4.20-5.50); Red Cell Distribution Width 12.7 % (11.0-16.0)
[2025-02-08 17:37] LABS: Alanine Aminotransferase 32 U/L (0-31); Albumin Level 4.3 g/dL (3.5-5.0); Alkaline Phosphatase 65 U/L (39-117); Anion Gap 10 (12-20); Aspartate Amino Transferase 29 U/L (5-31); Bilirubin Total 0.4 mg/dL (0.0-1.0); Blood Urea Nitrogen 11 mg/dL (9-16); Calcium 9.7 mg/dL (8.4-10.2); Carbon Dioxide 26 mmol/L (22-29); Chloride 104 mmol/L (96-108); Estimated Glomerular Filt Rate > 60; Glucose Random 90 mg/dL (60-115); Potassium 4.3 mmol/L (3.3-5.1); Sodium 136 mmol/L (135-145); Total Protein 8.4 g/dL (6.5-8.0)
== END 2025-02-08 16:02 | disposition home or self-care (01) ==
LOC: HO.LAB 16:01
PROVIDERS: PCP Internal Medicine; Visit Provider Internal Medicine Medical Oncology
DX: D72.819 Decreased white blood cell count, unspecified (principal)
CPT/HCPCS: 36415; 80053; 85025

== ENCOUNTER 2025-07-25 06:08 | Outpatient (REF) | payer OTHER, SELFPAY ==
--- OUTSIDE RECORDS SUMMARY | 2024-02-21 05:44 | XMS_ITS ---
Author Organization Anderson Lyn III, MD Address [address] [place] [address] Care Team Providers Care Agricultural Production Engineer Name Role Phone Jose Montgomery MD Primary Care Provider Anderson Mcnally [phone] REASON FOR VISIT wants results of ultrasound Social History Sex Assigned At : Social History Observation Description Sex Assigned At Female Encounters Encounter Location Date Provider Diagnosis Anderson Lyn III, MD [address] [place] [address] [place] [address] 02/21/2024 Anderson Lyn Plan Of Treatment Next Appt Details Provider Name:Anderson Lyn, 11/29/2025 09:00:00 AM, [address] [place] [address] [place], [phone], Progress Notes * Zhanna CARTERDOB:1965 (58 yo F)Acc No.[id number]:02/21/2024 Patient: Zhanna Garay :1965 A ge:58 Y S ex:Female Address:[address] [place] [address], [facility] [place], [address] * true * Date: Generated for Printi ng/Faxing/eTransmitting on: 0 07/25/2025 06:13 AM EDT
--- OUTSIDE RECORDS SUMMARY | 2024-03-29 05:45 | XMS_ITS ---
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 Phone Jose Montgomery MD Primary Care Provider Anderson Mcnally Unavailable [phone] Allergies Allergen (clinical drug ingredient) Drug/Non Drug [...] Problem Status W/U Status Risk Notes Problem 2924109 Former smoker (Z87.891) Active confirmed We formulated [...] Date Provider Diagnosis Anderson Lyn III, MD [address] [place] [address] [address]VAS ANAHI, [place] [address] 03/29/2024 Anderson Lyn Leukopenia D72.819 ; Alopecia [...] labs Provider Name:Anderson Lyn, 11/29/2025 09:00:00 AM, [address] [place] [address] LOC[address]ABRIEL, [facility] [place], [address], Progress Notes * Zhanna CARTERDOB:1965 (58 yo F)Acc No.[id number]:03/29/2024 Progress Notes Patient: Zhanna Garay Provider: Letitia Lyn MD :1965 A ge:58 Y S ex:Female Date:03/29/2024 Address:[address] [place] [address] [address] [place], [id number] Pcp:Jose Montgomery MD Subjective: * Chief Complaints: [...] They have no children. She works for [employer] in the [employer] department and has no occupational exposures. She is not a Holiness. * Medications: T akingClobetasol Propionate 0.05 % [...] - 03/21/2024) (Collection Date - 03/21/2024)?ValueReference Range?Vitamin [id number] - pg/mL ?Folate8.7> or = 4.0 - ng/mL ???Lab:Gamma Glutamyl Transpeptidase (Order Date - 03/21/2024) (Collection Date - 03/21/2024)?ValueReference Range?Gamma Glutamyl Ixbuodthlkfygp66 7-33 - U/L * Examination: G eneral [...] 03/29/2024 Generated for Dasia beard/Jonelle/eTransmitting on: 0 07/25/2025 06:13 AM EDT History and Physical Notes * HPI (History of Present Illness) Category Sub-Category Detail Notes COVID-19 Screening Questions Have you had any new onset fever, chills, cough, congestion, sore throat, shortness of breath, muscle aches?: No Have you been exposed to the virus withi n the last 10 days?: No Have you travelled internationally in [facility] last 10 days?: No Have you been [...]
--- OUTSIDE RECORDS SUMMARY | 2024-07-06 05:30 | XMS_ITS ---
Author Organization Anderson Lyn III, MD Address [address] [place] [address] Care Team Providers Care Front Desk Admin Name Role Phone Jose Montgomery MD Primary Care Provider Anderson Mcnally Unavailable [phone] Allergies Allergen (clinical drug ingredient) Drug/Non Drug [...] Date Provider Diagnosis Anderson Lyn III, MD [address] [place] [address] DR SUM[address]LUIZ, [place] [address] 07/06/2024 Anderson Lyn Leukopenia D72.819 ; Discoid [...] Months , Reason: Telehealth, OV Provider Name:Anderson Lyn, 11/29/2025 09:00:00 AM, [address] [facility] [address], [place], [address], Progress Notes * Zhanna CARTERDOB:1965 (59 yo F)Acc No.[id number]:07/06/2024 Progress Notes Patient: Zhanna Garay Provider: Letitia Lyn MD :1965 A ge:59 Y S ex:Female Date:07/06/2024 Address:[address] [place] [address] Kurt SUERO [id number] Pcp:Jose Montgomery MD Subjective: * Chief Complaints: * L eukocytopeniaDiscoid lupusAllergiesIron deficiencyHypertension * HPI: C OVID-19 Screening: She returns for surveillance of her leukopenia. She has had no infections. She is now under the care of a jalousie installer. Comprehensive blood work has been done. On [...] They have no children. 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 She is not a Rastafarian. * Medications: T akingClobetasol Propionate 0.05 % [...] 0 07/06/2024 Generated for Dasia beard/Jonelle/eTransmitting on: 0 07/25/2025 [...] days?: No Have you travelled internationally in last 10 days?: No Have you been [...]
--- OUTSIDE RECORDS SUMMARY | 2024-08-17 05:30 | XMS_ITS ---
Author Organization Anderson Lyn III, MD Address [address] [place] [address] [place] [address] Care Team Providers Care Collar Padder Blindstitch Name Role Phone Jose Montgomery MD Primary Care Provider Anderson Mcnally Unavailable [phone] Allergies Allergen (clinical drug ingredient) Drug/Non Drug [...] Date Provider Diagnosis Anderson Lyn III, MD [address] [place] [address] [place] [address] 08/17/2024 Anderson Lyn Leukopenia D72.819 ; Discoid [...] As Scheduled, Adeline son: OV Provider Name:Anderson Lyn, 11/29/2025 09:00:00 AM, [address] [place] [address] , [place] [address], [place], [address], Progress Notes * Zhanna CARTERDOB:1965 (59 yo F)Acc No.[id number]:08/17/2024 Patient: Zhanna BRO Provider: Letitia Lyn MD :1965 A ge:59 Y S ex:Female Date:08/17/2024 Address:[address] [place], [place] [address] Kurt SUERO [id number] Pcp:Jose Montgomery MD Subjective: * Chief Complaints: [...] of provider rendering services: { ...} [address] [facility] [address] [facility] [address] L ocation of patient: kylah katarzynamarie listed [...] They have no children. 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 * Medications: T akingClobetasol Propionate 0.05 % [...] true * Provider: Letitia Lyn MD Date: 08/17/2024 Generated for Dasia beard/Jonelle/Fanismitting on: 0 07/25/2025 06:13 AM EDT History and Physical Notes * HPI (History of Present Illness) Category Sub-Category Detail Notes Telehealth Location of [facility] rendering services:: {...} [address] [facility] [address] Location of patient:: address listed in demographics [...]
--- OUTSIDE RECORDS SUMMARY | 2025-02-15 05:00 | XMS_ITS ---
Author Organization Anderson Lyn III, MD Address [address] [place] [address] Care Team Providers Care Pipe Straightener Name Role Phone Jose Montgomery MD Primary Care Provider Anderson Mcnally Unavailable [phone] Allergies Allergen (clinical drug ingredient) Drug/Non Drug Allergy documented on EMR Reaction Allergy Type Onset Date Status No Known Drug Allergy Unknown Drug Allergy Active REASON FOR VISIT Chronic leukopenia, Discoid lupus, Possible mixed connective tissue disorder, Seasonal allergies, Hypertension Medications Medication SIG (Take, Route, Frequency, Duration) Notes Start Date End Date Status Vitamin D3 250 MCG (74123 UT) 1 capsule Orally Once a day [...] Date Provider Diagnosis Anderson Lyn III, MD [address] [place] [address] [address] [place], [place] [address] 02/15/2025 Anderson Lyn Leukopenia D72.819 ; Discoid [...] Stop Date Notes Vitamin D3 250 MCG (77632 UT) 1 capsule Orally Once a day [...] Provider Name:Anderson Lyn, 11/29/2025 09:00:00 AM, [address] [facility] [place], [place], [address], Progress Notes * Zhanna CARTERDOB:1965 (59 yo F)Acc No.[id number]:02/15/2025 Progress Notes Patient: Zhanna BRO Provider: Letitia Lyn MD :1965 A ge:59 Y S ex:Female Date:02/15/2025 Address:[address] [place], [place] [address]LEY [id number] Pcp:Jose Montgomery MD Subjective: * Chief Complaints: * C hronic leukopeniaDiscoid lupusPossible mixed connective tissue disorderSeasonal allergiesHypertension * HPI: C OVID-19 Screening: [facility] for a periodic scheduled [...] They have no children. 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 * Medications: T akingVitamin D3 250 MCG (71884 UT) Capsule 1 capsule Orally Once a [...] with the patientTaking Vitamin D3 250 MCG (10172 UT) Capsule 1 capsule Orally Once a [...] 0 02/15/2025 Generated for Dasia beard/Jonelle/eTransmitting on: 0 07/25/2025 [...]
--- OUTSIDE RECORDS SUMMARY | 2025-07-25 06:13 | XMS_ITS | Patient Health Record ---
Author Organization Anderson Lyn III, MD Address [address] [place] [address] Care Team Providers Care Proctologist Name Role Phone Jose Montgomery MD Primary Care Provider Anderson Mcnally Unavailable [phone] Allergies Allergen (clinical drug ingredient) Drug/Non Drug Allergy documented on EMR Reaction Allergy Type Onset Date Status No Known Drug Allergy Unknown Drug Allergy Active Results Component Value Reference Range Notes Calcium Reviewed date:08/21/2024 08:14:56 AM Interpretation: Performing Lab:[facility], [address] [place] [id number] Notes/Report: Calcium 9.8 8.4-10.2 mg/dL Parathyroid Hormone Intact Reviewed date:08/21/2024 08:14:56 AM Interpretation: Performing Lab:[facility], [address] [place] [id number] Notes/Report: Parathyroid Hormone Intact 58.9 8.7-77.1 pg/mL Reason For Referral No Information Medications Medication SIG (Take, Route, Frequency, Duration) Notes Start Date End Date Status Vitamin D3 250 MCG (28363 UT) 1 capsule Orally Once a day [...] Problem Status W/U Status Risk Notes Problem 2531294 Former smoker (Z87.891) Active confirmed We formulated a plan to prevent relapse and times of stress and illness. Problem 387504669261750 Right hip pain (M25.551) Active confirmed was serge disc Problem 96082920 Essential hypertension (I10) Active confirmed Her blood pressure is currently in the normal range and no change in her regimen as needed. Problem 92777277 Leukopenia (D72.819) Active confirmed Her total white blood cell count is 3000.. The differential is remarkable for a slightly diminished number of neutrophils and a slightly diminished number of lymphocytes.. She has had no infections. Surveillance was continued.An ultrasound of the spleen was noted to see if it has increased in size causing a further decline in the white blood cell Problem 461976405 History of iron deficiency anemia (Z86.2) Active confirmed There is currently no sign of iron deficiency and she does not require iron supplementatio n. 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 Her total protein is elevated to 9.3 but there are no monoclonal antibodies found on serum protein electrophoresi s. The antibodies against single-strande d DNA are positive. Problem 19078496 Alopecia areata (L63.9) Active confirmed He says this has resolved. Problem 679680649 Seasonal allergies (J30.2) Active confirmed She has had no rhinitis yet this year. She is preparing for pollen season. Vital Signs Heart Rate 84 /min 02/15/2025 Temperature 98.6 degrees Fahrenheit 02/15/2025 Blood pressure diastolic 69 mm Hg 02/15/2025 Height 68 in 02/15/2025 Blood pressure systolic 118 mm Hg 02/15/2025 Weight 139 lbs 02/15/2025 BMI 21.13 kg/m2 02/15/2025 Encounters Encounter Location Date Provider Diagnosis Anderson Lyn III, MD [address] [place] [address] [address] [place], [place] [address] 08/17/2024 Anderson Lyn Leukopenia D72.819 ; Discoid lupus L93.0 ; History of iron deficiency anemia Z86.2 ; Essential hypertension I10 ; Seasonal allergies J30.2 and Former smoker Z87.891 Anderson Lyn III, MD [address] [place] [address] [address] [place], [place] [address] 02/15/2025 Anderson Lyn Leukopenia D72.819 ; Discoid [...] antibodies against single-stranded DNA are positive. 02/15/2025 Leukopenia (ICD-10 - D72.819) Her total [...] and she does not require iron supplementation. 02/15/2025 Alopecia areata (ICD-10 - L63.9) He says this has resolved. 08/17/2024 Essential hypertension (ICD-10 - I10) Return to the office on her next visit to have her blood pressure measured. 02/15/2025 Seasonal allergies (ICD-10 - J30.2) She has had no rhinitis yet this year. She is preparing for pollen season. 08/17/2024 Seasonal allergies (ICD-10 - J30.2) She has had no rhinitis yet this year. She is preparing for pollen season. 02/15/2025 Essential hypertension (ICD-10 - I10) Her blood pressure is currently in the normal range and no change in her regimen as needed. 08/17/2024 Former smoker (ICD-10 - Z87.891) We formulated a plan to prevent relapse and times of stress and illness. 02/15/2025 Former smoker (ICD-10 - Z87.891) We formulated a plan to prevent relapse and times of stress and illness. Plan Of Treatment Pending Test Test Name Order Date PROFILE, RANDOM (COMPREHENSIVE METABOLIC ) 07/28/2023 PROFILE, RANDOM (COMPREHENSIVE METABOLIC ) 05/18/2019 PROFILE, RANDOM (COMPREHENSIVE METABOLIC ) 09/22/2018 PROFILE, RANDOM (COMPREHENSIVE METABOLIC ) 06/04/2022 PROFILE, RANDOM (COMPREHENSIVE METABOLIC ) 01/06/2018 PROFILE, RANDOM (COMPREHENSIVE METABOLIC ) 11/28/2020 PROFILE, RANDOM (COMPREHENSIVE METABOLIC ) 03/29/2024 PROFILE, RANDOM (COMPREHENSIVE METABOLIC ) 01/26/2024 PROFILE, RANDOM (COMPREHENSIVE METABOLIC ) 02/15/2025 PROFILE, RANDOM (COMPREHENSIVE METABOLIC ) 11/23/2019 PROFILE, RANDOM (COMPREHENSIVE METABOLIC ) 12/09/2022 PROFILE, RANDOM (COMPREHENSIVE METABOLIC ) 07/06/2024 PROFILE, RANDOM (COMPREHENSIVE METABOLIC ) 05/12/2018 PROFILE, RANDOM (COMPREHENSIVE METABOLIC ) 01/20/2019 PROFILE, RANDOM (COMPREHENSIVE METABOLIC ) 12/04/2021 PROFILE, RANDOM (COMPREHENSIVE METABOLIC ) 05/27/2020 GGT 01/26/2024 VITAMIN B12 AND FOLATE 01/26/2024 CBC w DIFF 01/20/2019 CBC w DIFF 12/04/2021 CBC w DIFF 05/27/2020 CBC w DIFF 07/28/2023 CBC w DIFF 09/22/2018 CBC w DIFF 06/04/2022 CBC w DIFF 01/06/2018 CBC w DIFF 11/28/2020 CBC w DIFF 03/29/2024 CBC w DIFF 02/15/2025 CBC w DIFF 05/29/2021 CBC w DIFF 11/23/2019 CBC w DIFF 12/09/2022 CBC w DIFF 05/12/2018 CBC w DIFF 01/26/2024 CBC with MANUAL DIFFERENTIAL 05/18/2019 SED RATE (ESR) 09/22/2018 MAMMOGRAM DIGITAL BILATERAL SCREEN 05/12 US ABD 01/26/2024 CBC WITH AUTO DIFF 07/06/2024 Calcium 07/06/2024 Parathyroid Hormone Intact 07/06/2024 Next Appt Details Provider Name:Anderson Coppolane, 11/29/2025 09:00:00 AM, [address] [place] [address] [address], [address], [place], [phone], Insurance Providers Payer Name Payer Address Payer Phone Subscriber Number Group Number Insured Name Patient Relationship to Insured Coverage Start Date Coverage End Date [facility] [address] [facility] [address] [facility] [place] [phone] [id number] Zhanna Carter Self - patient is the insured Medical (General) History Medical History History ICD Code Discoid Lupus Alopecia areata 704.00 essential hypertension seasonal allergies benign fibroma breast iron deficiency anemia 2010 corrective lenses chronic leukopenia Surgical History Surgery Date(Month/Year) ultrasound-guided biopsy left breast, 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 Lee 09/2010
--- OUTSIDE RECORDS SUMMARY | 2025-07-25 06:14 | XMS_ITS | Patient Health Record ---
Author Organization [facility] Address [address] [place] [address] Care Team Providers Care Quartz Miner Name Role Phone Valentina (RETIRED) Jose DAVIS Primary Care Provide r Anderson Alonso Unavailable [phone] Allergies No Known Allergies Reason For Referral [...] Problem Status W/U Status Risk Notes Problem 314659875 Colon cancer screening (Z12.11) Active confirmed Problem Diverticular disease of colon (042589342) Diverticulosis of large intestine without perforation or abscess without bleeding (K57.30) Active confirmed Problem 44241902 Constipation, unspecified constipation type (K59.00) Active confirmed Plan Of Treatment Pending Test Test Name Order Date Pathology 03/15/2023 Future Test Test Name Order Date COLONOSCOPY 12/22/2022 Insurance Providers Payer Name Payer Address Payer Phone Subscriber Number Group Number Insured Name Patient Relationship to Insured Coverage Start Date Coverage End Date [facility] [address] [facility] [place] [phone] [id number] AMNA SALINAS Self - patient is the insured Medical (General) History Medical History History ICD Code Hypertension Denies MO,DM,CVA,Lung disease,renal dise ase Negative colon[place] [address] Guy leach Surgical History Surgery Date(Month/Year)
[2025-07-25 10:23] LABS: Hematocrit 40.0 % (37.0-47.0); Hemoglobin 13.4 g/dl (12.0-16.0); Imm Gran Abs Auto 0.01 X10*3/uL (0.00-0.03); Imm Gran Pct Auto 0.5 % (0.0-0.4); Lymphocytes Absolute Auto 0.7 X10*3/uL (1.2-4.9); Mean Corpuscular HGB Conc 33.5 g/dl (31.0-35.0); Mean Corpuscular Hemoglobin 29.6 pg (27.0-33.0); Mean Corpuscular Volume 88.3 fL (80.0-98.0); NRBC Abs Auto 0.000 X10*3/uL (0.0-0.012); NRBC Pct Auto 0.0 /100WBC (0.0-0.2); Platelet Count 257 X10*3/uL (160-400); Red Blood Count 4.53 X10*6/uL (4.20-5.50); SCAN SMEAR FLAG 1
[2025-07-25 10:24] LABS: MANUAL DIFF FLAG NO; White Blood Count 2.1 X10*3/uL (4.8-10.8)
[2025-07-25 10:28] LABS: Appearance Urine Clear; Glucose Urine UA Negative (Negative); PH 7.0 (5.0-9.0); Specific Gravity - Urine 1.015 (1.005-1.025)
[2025-07-25 10:33] LABS: Alanine Aminotransferase 27 U/L (0-31); Albumin Level 4.4 g/dL (3.5-5.0); Alkaline Phosphatase 66 U/L (39-117); Anion Gap 12 (12-20); Aspartate Amino Transferase 32 U/L (5-31); Blood Urea Nitrogen 9 mg/dL (9-16); Calcium 9.7 mg/dL (8.4-10.2); Carbon Dioxide 26 mmol/L (22-29); Chloride 104 mmol/L (96-108); Cholesterol 212 mg/dL (<200); Estimated Glomerular Filt Rate > 60; HDL Cholesterol 63 mg/dL (>40); Potassium 4.2 mmol/L (3.3-5.1); Sodium 138 mmol/L (135-145); Total Protein 7.6 g/dL (6.5-8.0); Triglycerides 49 mg/dL (<150)
[2025-07-25 11:02] LABS: Total Protein Urine Random < 7 mg/dL (<12)
== END 2025-07-25 06:09 | disposition home or self-care (01) ==
LOC: HO.HMGCLDS 06:08
PROVIDERS: Referring Provider Student in an Organized Health Care Education/Training Program; Visit Provider Internal Medicine
DX: Z13.220 Encounter for screening for lipoid disorders (principal); Z13.0 Encounter for screening for diseases of the blood and blood-forming organs and certain disorders involving the immune mechanism; Z13.6 Encounter for screening for cardiovascular disorders; Z01.84 Encounter for antibody response examination; M35.1 Other overlap syndromes
CPT/HCPCS: 36415; 80053; 80061; 81001; 82570; 84156; 84443; 85025; 85652; 86140; 86160; 86225

== ENCOUNTER 2025-08-01 07:57 | Outpatient (AMB) | payer OTHER, SELFPAY ==
--- OUTSIDE RECORDS SUMMARY | 2024-02-21 05:44 | XMS_ITS ---
Author Organization Anderson Lyn III, MD Address [address] [place] [address] Care Team Providers Care School Inspector Name Role Phone Jose Montgomery MD Primary Care Provider Anderson Mcnally [phone] REASON FOR VISIT wants results of ultrasound Social History Sex Assigned At : Social History Observation Description Sex Assigned At Female Encounters Encounter Location Date Provider Diagnosis Anderson Lyn III, MD [address] [place] [address] [place] [address] 02/21/2024 Anderson Lyn Plan Of Treatment Next Appt Details Provider Name:Anderson Lny, 11/29/2025 09:00:00 AM, [address] [place] [address] [place], [phone], Progress Notes * Zhanna CARTERDOB:1965 (58 yo F)Acc No.[id number]:02/21/2024 Patient: Zhanna Garay :1965 A ge:58 Y S ex:Female Address:[address] [place] [address], [facility] [place], [address] * true * Date: Generated for Printi ng/Faxing/eTransmitting on: 0 08/01/2025 08:17 AM EDT
--- OUTSIDE RECORDS SUMMARY | 2024-03-29 05:45 | XMS_ITS ---
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 Role Phone Jose Montgomery MD Primary Care Provider Anderson Mcnally Unavailable [phone] Allergies Allergen (clinical drug ingredient) Drug/Non Drug Allergy documented on EMR Reaction Allergy Type Onset Date Status No Known Drug Allergy Unknown Drug Allergy Active REASON FOR VISIT Discoid lupus, Leukopenic, History of iron deficiency Medications Medication SIG (Take, Route, Frequency, Duration) Notes Start Date End Date Status Clobetasol Propionate 0.05 % APPLY TO AFFECTED AREAS ON SCALP EVERY MORNING AND EVENING NEEDED FOR ITCHINESS AND FLARES External Active Betamethasone Dipropionate 0.05 % 1 application to affected area Externally Once a day Active amLODIPine Besylate 2.5 MG 1 tablet Oral ly Once a day Active Social History Tobacco Use: Social History Observation Description Date Details (start date - stop date) Former Smoker NA - NA Sex Assigned At : Social History Observation Description Sex Assigned At Female Tobacco Use/Smoking Question Answer Notes Patient is a former smoker How long has it been since you last smoked? > 10 years Additional Findings: Tobacco Non-User Ex-cigaret te smoker Problems Problem Type SNOMED Code ICD Code Onset Dates Problem Status W/U Status Risk Notes Problem 3875363 Former smoker (Z87.891) Active confirmed We formulated a plan to prevent relapse and times of stress and illness. Vital Signs Temperature 98.8 degrees Fahrenheit 03/29/20 24 Blood pressure systolic 143 mm Hg 03/29/20 24 Blood pressure diastolic 81 mm Hg 024 Heart Rate 89 /min 03/29/2024 Height 68 in 03/29/2024 Weight 137 lbs 03/29/2024 BMI 20.83 kg/m2 03/29/2024 Encounters Encounter Location Date Provider Diagnosis Anderson Lyn III, MD [address] [place] [address] [address]VAS ANAHI, [place] [address] 03/29/2024 Anderson Lyn Leukopenia D72.819 ; Alopecia areata L63.9 ; Seasonal allergies J30.2 ; Essential hypertension I10 ; Right hip pain M25.551 and Former smoker Z87.891 Assessments Encounter Date Diagnosis (ICD Code) Assessment Notes Treatment Notes Treatment Clinical Notes 03/29/2024 Leukopenia (ICD-10 - D72.819) Her total white blood cell count is again 1900. The differential is unremarkable. She has had no infections. Surveillance was continued.An ultrasound of the spleen was noted to see if it has increased in size causing a further decline in the white blood cell 03/29/2024 Alopecia areata (ICD-10 - L63.9) He says this has resolved. 03/29/2024 Seasonal allergies (ICD-10 - J30.2) She has had no rhinitis yet this year. She is preparing for pollen season. 03/29/2024 Essential hypertension (ICD-10 - I10) The blood pressure is Slightly high at 143/80 and this problem is well controlled. No additional changes are necessary. 03/29/2024 Right hip pain (ICD-10 - M25.551) was serge disc 03/29/2024 Former smoker (ICD-10 - Z87.891) We formulated a plan to prevent relapse and times of stress and illness. Plan Of Treatment Medication Medication Name Sig Start Date Stop Date Notes Clobetasol Propionate 0.05 % APPLY TO AF FECTED AREAS ON SCALP EVERY MORNING AND EVENING NEEDED FOR ITCHINESS AND FLARES External Betamethasone Dipropionate 0.05 % 1 application to affected area Externally Once a day amLODIPine Besylate 2.5 MG 1 tablet Orally Once a day Pending Test Test Name Order Date PROFILE, RANDOM (COMPREHENSIVE METABOLIC ) 03/29/2024 CBC w DIFF 03/29/2024 Next Appt Details Follow Up: 3 Months, Reason: ov review labs Provider Name:Anderson Lyn, 11/29/2025 09:00:00 AM, [address] [place] [address] [address]EL, [facility] [place], [address], Progress Notes * Zhanna CARTERDOB:1965 (58 yo F)Acc No.[id number]:03/29/2024 Progress Notes Patient: Zhanna Garay Provider: Letitia Lyn MD :1965 A ge:58 Y S ex:Female Date:03/29/2024 Address:[address] [place] [address] [address] [place], [id number] Pcp:Jose Montgomery MD Subjective: * Chief Complaints: * D iscoid lupusLeukopenicHistory of iron deficiency * HPI: C OVID-19 Screening: She has a history of discoid lupus and leukopenia. Her white blood cell count is currently 1900 the same. It was on her last visit. Her hemoglobin and hematocrit and mean cell volume and platelets are normal. Her differential is normal. Her folic acid and vitamin B12 levels are normal. She is not taking ferrous sulfate. Questions H ave you experienced fever, chills, cough, sore throat, shortness of breath, difficulty breathing, muscle aches, loss of taste or smell? N o H ave you been exposed to the virus within the last 10 days? N o H ave you travelled internationally in the last 10 days? N o H ave you been exposed to COVID-19 in the past? Y es * ROS: G eneral/Constitutional: pain o nly normal aches and pains. C hills d enies.?Fatigue a dmits. F ever d enies. E NT: Decreased hearing d enies. R espiratory: Cough d enies. C ardiovascular: Chest pain with exertion d enies. D yspnea on exertion?denies. S hortness of breath d enies. G astrointestinal: Constipation o ccasional. D ecreased appetite d enies. D iarrhea d enies. H eartburn d enies. N ausea d enies. R ectal bleeding d enies. V omiting d enies. H ematology: bruising d enies. p etechiae d enies. S wollen glands n one have been noted. G enitourinary: Frequent urination d enies. M usculoskeletal: Muscle aches d enies. P ainful joints R ight hip.?Sciatica d enies. W eakness d enies. S kin: Itching d enies. R elvis d enies. S kin lesion(s)?denies. N eurologic: Difficulty speaking d enies. D izziness d enies.?Headache d enies. L ow back pain d enies. P sychiatric: Depressed mood d enies. * Medical History: * Surgical History: n ormal colonoscopy, Dr. Lee 09/2010ultrasound-guided biopsy left breast, fibroadenoma 12/2004 * Hospitalization/Major Diagno stic Procedure: D enies Past Hospitalization * Family History: F ather: 91 yrs, lung cancer, diagnosed with Cancer. M other: 82 yrs, Heart Diseease. 3 brother(s) , 2 sister(s) . . One brother had a myocardial infarction at age 50. * Social History: T obacco Use: T obacco Use/Smoking P atient is a f ormer smoker H ow long has it been since you last smoked??> 10 years A dditional Findings: Tobacco Non-User E x-cigarette smoker H er apacharles dided of bladder cancer April 2023. They have no children. She works for [employer] in the [employer] department and has no occupational exposures. She is not a Restorationist. * Medications: T akingClobetasol Propionate 0.05 % Gel APPLY TO AFFECTED AREAS ON SCALP EVERY MORNING AND EVENING NEEDED FOR ITCHINESS AND FLARES External Betamethasone Dipropionate 0.05 % Cream 1 application to affected area Externally Once a dayamLODIPine Besylate 2.5 MG Tablet 1 tablet Orally Once a dayMedication List reviewed and reconciled with the patientTaking Clobetasol Propionate 0.05 % Gel APPLY TO AFFECTED AREAS ON SCALP EVERY MORNING AND EVENING NEEDED FOR ITCHINESS AND FLARES External Taking Betamethasone Dipropionate 0.05 % Cream 1 application to affected area Externally Once a dayTaking amLODIPine Besylate 2.5 MG Tablet 1 tablet Orally Once a dayMedication List reviewed and reconciled with the patient * Allergies: N o Known Drug Allergyno[Allergies Verified] Objective: * Vitals: H t: 68, Wt: 137, BMI:20.83, BP: 143/81, HR: 89, Temp: 98.8, Wt-k.14. * P ast Orders: Lab:SLIDE REVIEW * Order Date 03/21/2024 01/18/2024 SLIDE REVIEW VERIFIED VERIFIED * Lab:Comprehensive Met. Panel * Order Date 03/21/2024 01/18/2024 07/20/2023 Sodium 136 (Ref Range: 135-145 mmol/L) 136 (Ref Range: 135-145 mmol/L) 135 (Ref Range: 135-145 mmol/L) Bilirubin Total 0.5 (Ref Range: 0.0-1.0 mg/dL) 0.5 (Ref Range: 0.0-1.0 mg/dL) 0.6 (Ref Range: 0.0-1.0 mg/dL) Aspartate Amino Transferase 32 H (Ref Range: 5-31 U/L) 38 H (Ref Range: 5-31 U/L) 37 H (Ref Range: 5-31 U/L) Alanine Aminotransferase 38 H (Ref Range: 0-31 U/L) 48 H (Ref Range: 0-31 U/L) 68 H (Ref Range: 0-31 U/L) Total Protein 7.6 (Ref Range: 6.5-8.0 g/dL) 7.8 (Ref Range: 6.5-8.0 g/dL) 7.4 (Ref Range: 6.5-8.0 g/dL) Albumin Level 4.0 (Ref Range: 3.5-5.0 g/dL) 4.1 (Ref Range: 3.5-5.0 g/dL) 4.1 (Ref Range: 3.5-5.0 g/dL) Alkaline Phosphatase 62 (Ref Range: 39-117 U/L) 67 (Ref Range: 39-117 U/L) 71 (Ref Range: 39-117 U/L) Potassium 4.2 (Ref Range: 3.3-5.1 mmol/L) 4.2 (Ref Range: 3.3-5.1 mmol/L) 4.6 (Ref Range: 3.3-5.1 mmol/L) Chloride 104 (Ref Range: 96-108 mmol/L) 103 (Ref Range: 96-108 mmol/L) 105 (Ref Range: 96-108 mmol/L) Carbon Dioxide 23 (Ref Range: 22-29 mmol/L) 26 (Ref Range: 22-29 mmol/L) 24 (Ref Range: 22-29 mmol/L) Anion Gap 13 (Ref Range: 12-20) 11 L (Ref Range: 12-20) 11 L (Ref Range: 12-20) Blood Urea Nitrogen 9 (Ref Range: 9-16 mg/dL) 11 (Ref Range: 9-16 mg/dL) 10 (Ref Range: 9-16 mg/dL) Creatinine 0.58 (Ref Range: 0.5-1.4 mg/dL) 0.63 (Ref Range: 0.5-1.4 mg/dL) 0.63 (Ref Range: 0.5-1.4 mg/dL) Estimated Glomerular Filt Rate > 60 > 60 > 60 Glucose Random 87 (Ref Range: 60-115 mg/dL) 82 (Ref Range: 60-115 mg/dL) 83 (Ref Range: 60-115 mg/dL) Calcium 9.9 (Ref Range: 8.4-10.2 mg/dL) 9.8 (Ref Range: 8.4-10.2 mg/dL) 9.7 (Ref Range: 8.4-10.2 mg/dL) ???Lab:Pathologist Review - CBC (Order Date - 01/18/2024) (Collection Date - 01/18/2024)?ValueReference Range?Pathologist Review - CBCSEE NOTE- * Lab:Complete Blood Count Aut o Diff * Order Date 03/21/2024 01/18/2024 07/20/2023 White Blood Count 1.9 L (Ref Range: 4.8-10.8 X10*3/uL) 1.9 L (Ref Range: 4.8-10.8 X10*3/uL) 2.6 L (Ref Range: 4.8-10.8 X10*3/uL) Red Blood Count 4.38 (Ref Range: 4.20-5.50 X10*6/uL) 4.70 (Ref Range: 4.20-5.50 X10*6/uL) 4.26 (Ref Range: 4.20-5.50 X10*6/uL) Hemoglobin 12.9 (Ref Range: 12.0-16.0 g/dl) 13.5 (Ref Range: 12.0-16.0 g/dl) 12.2 (Ref Range: 12.0-16.0 g/dl) Hematocrit 38.5 (Ref Range: 37.0-47.0 %) 41.4 (Ref Range: 37.0-47.0 %) 38.0 (Ref Range: 37.0-47.0 %) Mean Corpuscular Volume 87.9 (Ref Range: 80.0-98.0 fL) 88.1 (Ref Range: 80.0-98.0 fL) 89.2 (Ref Range: 80.0-98.0 fL) Mean Corpuscular Hemoglobin 29.5 (Ref Range: 27.0-33.0 pg) 28.7 (Ref Range: 27.0-33.0 pg) 28.6 (Ref Range: 27.0-33.0 pg) Mean Corpuscular HGB Conc 33.5 (Ref Range: 31.0-35.0 g/dl) 32.6 (Ref Range: 31.0-35.0 g/dl) 32.1 (Ref Range: 31.0-35.0 g/dl) Red Cell Distribution Width 13.2 (Ref Range: 11.0-16.0 %) 12.8 (Ref Range: 11.0-16.0 %) 13.8 (Ref Range: 11.0-16.0 %) Platelet Count 245 (Ref Range: 160-400 X10*3/uL) 262 (Ref Range: 160-400 X10*3/uL) 402 H (Ref Range: 160-400 X10*3/uL) Mean Platelet Volume 9.8 (Ref Range: 9.4-12.3 fL) 9.6 (Ref Range: 9.4-12.3 fL) 8.9 L (Ref Range: 9.4-12.3 fL) Neutrophils Percent Auto 54.5 (Ref Range: 45-73 %) 51.9 (Ref Range: 45-73 %) 54.0 (Ref Range: 45-73 %) Imm Gran Pct Auto 0.0 (Ref Range: 0.0-0.4 %) 0.0 (Ref Range: 0.0-0.4 %) 0.0 (Ref Range: 0.0-0.4 %) Lymphocytes Percent Auto 28.8 (Ref Range: 20-40 %) 33.0 (Ref Range: 20-40 %) 27.8 (Ref Range: 20-40 %) Monocytes Percent Auto 15.2 H (Ref Range: 2-11 %) 13.5 H (Ref Range: 2-11 %) 17.4 H (Ref Range: 2-11 %) Eosinophils Percent Auto 0.5 (Ref Range: 0-4 %) 1.1 (Ref Range: 0-4 %) 0.0 (Ref Range: 0-4 %) Basophils Percent Auto 1.0 (Ref Range: 0-2 %) 0.5 (Ref Range: 0-2 %) 0.8 (Ref Range: 0-2 %) NRBC Pct Auto 0.0 (Ref Range: 0.0-0.2 /100WBC) 0.0 (Ref Range: 0.0-0.2 /100WBC) 0.0 (Ref Range: 0.0-0.2 /100WBC) Neutrophils Absolute Auto 1.0 L (Ref Range: 2.0-8.3 x10*3/uL) 1.0 L (Ref Range: 2.0-8.3 x10*3/uL) 1.4 L (Ref Range: 2.0-8.3 x10*3/uL) Imm Gran Abs Auto 0.00 (Ref Range: 0.00-0.03 X10*3/uL) 0.00 (Ref Range: 0.00-0.03 X10*3/uL) 0.00 (Ref Range: 0.00-0.03 X10*3/uL) Lymphocytes Absolute Auto 0.6 L (Ref Range: 1.2-4.9 X10*3/uL) 0.6 L (Ref Range: 1.2-4.9 X10*3/uL) 0.7 L (Ref Range: 1.2-4.9 X10*3/uL) Monocytes Absolute Auto 0.3 (Ref Range: 0.1-1.2 X10*3/uL) 0.3 (Ref Range: 0.1-1.2 X10*3/uL) 0.5 (Ref Range: 0.1-1.2 X10*3/uL) Eosinophils Absolute Auto 0.0 (Ref Range: 0.0-0.4 X10*3/uL) 0.0 (Ref Range: 0.0-0.4 X10*3/uL) 0.0 (Ref Range: 0.0-0.4 X10*3/uL) Basophils Absolute Auto 0.0 (Ref Range: 0.0-0.2 X10*3/uL) 0.0 (Ref Range: 0.0-0.2 X10*3/uL) 0.0 (Ref Range: 0.0-0.2 X10*3/uL) NRBC Abs Auto 0.000 (Ref Range: 0.0-0.012 X10*3/uL) 0.000 (Ref Range: 0.0-0.012 X10*3/uL) 0.000 (Ref Range: 0.0-0.012 X10*3/uL) ???Lab:Vitamin B12 and Folate (Order Date - 03/21/2024) (Collection Date - 03/21/2024)?ValueReference Range?Vitamin [id number] - pg/mL ?Folate8.7> or = 4.0 - ng/mL ???Lab:Gamma Glutamyl Transpeptidase (Order Date - 03/21/2024) (Collection Date - 03/21/2024)?ValueReference Range?Gamma Glutamyl Tpypaglxnfizta33 7-33 - U/L * Examination: G eneral Examination: GENERAL APPEARANCE: p leasant, well nourished, well developed, in no acute distress, calm and relaxed , woman. HEAD: a traumatic, normocephalic. EYES: e francisco, perrla, anicteric, conjugate. EARS: n ormal. NOSE: s eptum intact. ORAL CAVITY: n ormal, unremarkable. NECK/THYROID: n o jugular venous distention, no carotid bruit, thyroid normal. LYMPH NODES: n o enlarged lymph nodes,spleen normal. SKIN: n o suspicious lesions, anicteric. HEART: n o clicks, gallops, murmurs, or rubs, regular rhythm, S1, S2 normal, no s3, or vascular bruits. LUNGS: c lear to auscultation . BREASTS: n ot examined. ABDOMEN: b owel sounds normal, no ascites, no organomegaly, no mass. RECTAL EXAM: n ot examined. MUSCULOSKELETAL: e xtremities unremarkable, no clubbing, cyanosis or edema. PERIPHERAL PULSES: n ormal. NEUROLOGIC: a lert and oriented, cranial nerves 2-12 grossly intact, deep tendon reflexes 2+ symmetrical, motor strength normal upper and lower extremities, sensory exam intact. PSYCH: a lert, oriented. Assessment: * Assessment: 1. L eukopenia - D72.819 (Primary), Her total white blood cell count is again 1900. The differential is unremarkable. She has had no infections. Surveillance was continued.An ultrasound of the spleen was noted to see if it has increased in size causing a further decline in the white blood cell?2. A lopecia areata - L63.9, He says this has resolved. 3 . S easonal allergies - J30.2, She has had no rhinitis yet this year. She is preparing for pollen season. 4 . E ssential hypertension - I10, The blood pressure is Slightly high at 143/80 and this problem is well controlled. No additional changes are necessary. 5 . R ight hip pain - M25.551, was serge disc?6. F ormer smoker - Z87.891, We formulated a plan to prevent relapse and times of stress and illness. Plan: * Treatment: 2. O thers Continue amLODIPine Besylate Tablet, 2.5 MG, 1 tablet, Orally, Once a day. * Procedure Codes: * Preventive Medicine: Counseling: S moking/Tobacco Use Patient counseled on the dangers of tobacco use and urged to quit. 0 03/29/2024 * Follow Up: 3 Months (Reason: ov review labs) * Images: * Sign off status: Completed true * Provider: Letitia Lyn MD Date: 0 03/29/2024 Generated for Dasia beard/Jonelle/eTransmitting on: 0 08/01/2025 08:16 AM EDT History and Physical Notes * HPI (History of Present Illness) Category Sub-Category Detail Notes COVID-19 Screening Questions Have you had any new onset fever, chills, cough, congestion, sore throat, shortness of breath, muscle aches?: No Have you been exposed to the virus withi n the last 10 days?: No Have you travelled internationally in [facility] last 10 days?: No Have you been exposed to COVID-19 in the past?: Yes Examination Category Sub-Category Detail Notes General Examination GENERAL APPEARANCE: pleasant , well nourished, well developed, in no acute distress, calm and relaxed , woman HEAD: atraumatic, normocep halic EYES: eomi, perrla, anicte giovanni, conjugate EARS: normal NOSE: septum intact NECK/THYROID: no jugular venous di stention, no carotid bruit, thyroid normal HEART: no clicks, gallops, murmurs, or rubs, regular rhythm, S1, S2 normal, no s3, or vascular bruits LUNGS: clear to auscultatio n ABDOMEN: bowel sounds normal, no ascites, no organomegaly, no mass NEUROLOGIC: alert and oriented, cranial nerves 2-12 grossly intact, deep tendon reflexes 2+ symmetrical, motor strength normal upper and lower extremities, sensory exam intact SKIN: no suspicious lesion s, anicteric PERIPHERAL PULSES: normal BREASTS: not examined MUSCULOSKELETAL: extremities unremark able, no clubbing, cyanosis or edema LYMPH NODES: no enlarged lymph no chandrika,spleen normal RECTAL EXAM: not examined PSYCH: alert, oriented ORAL CAVITY: normal, unremarkable
--- OUTSIDE RECORDS SUMMARY | 2024-07-06 05:30 | XMS_ITS ---
Author Organization Anderson Lyn III, MD Address [address] ADAN Erich [place] [address] Care Team Providers Care Towel Hemmer Name Role Phone Jose Montgomery MD Primary Care Provider Anderson Mcnally Unavailable [phone] Allergies Allergen (clinical drug ingredient) Drug/Non Drug [...] Date Provider Diagnosis Anderson Lyn III, MD [address] [place] [address] DR SUMMERSLUIZ, [place] [address] 07/06/2024 Anderson Lyn Leukopenia D72.819 ; Discoid [...] Provider Name:Anderson Lyn, 11/29/2025 09:00:00 AM, [address] [facility] [address], [place], [address], Progress Notes * Zhanna CARTERDOB:1965 (59 yo F)Acc No.[id number]:07/06/2024 Progress Notes Patient: Zhanna Garay Provider: Letitia Lyn MD :1965 A ge:59 Y S ex:Female Date:07/06/2024 Address:[address] [place] [address] Kurt SUERO [id number] Pcp:Jose Montgomery MD Subjective: * Chief Complaints: * L eukocytopeniaDiscoid lupusAllergiesIron deficiencyHypertension * HPI: C OVID-19 Screening: She returns for surveillance of her leukopenia. She has had no infections. She is now under the care of a wire tester. Comprehensive blood work has been done. On [...] They have no children. 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 * Medications: T akingClobetasol Propionate 0.05 % [...] 07/06/2024 Generated for Dasia beard/Jonelle/eTransmitting on: 0 08/01/2025 08:15 AM EDT History and Physical Notes * [...]
--- OUTSIDE RECORDS SUMMARY | 2024-08-17 05:30 | XMS_ITS ---
Author Organization Anderson Lyn III, MD Address [address] [place] [address] [place] [address] Care Team Providers Care Fire Sprinkler Apparatus Inspector Name Role Phone Jose Montgomery MD Primary Care Provider Anderson Mcnally Unavailable [phone] Allergies Allergen (clinical drug ingredient) Drug/Non Drug [...] Provider Diagnosis Anderson Lyn III, MD [address] [place] [address] [place] [address] 08/17/2024 Anderson Lyn Leukopenia D72.819 ; Discoid [...] OV Provider Name:Anderson Lyn, 11/29/2025 09:00:00 AM, [address] [place] [address] , [place] [address], [place], [address], Progress Notes * Zhanna CARTERDOB:1965 (59 yo F)Acc No.[id number]:08/17/2024 Patient: Zhanna BRO Provider: Letitia Lyn MD :1965 A ge:59 Y S ex:Female Date:08/17/2024 Address:[address] [place], [place] [address]EULOGIO Kurt SUERO [phone] Pcp:Jose Montgomery MD Subjective: * Chief Complaints: [...] of provider rendering services: { ...} [address] [employer] [address] L ocation of patient: kylah katarzynamarie listed [...] They have no children. 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 * Medications: T akingClobetasol Propionate 0.05 % [...] Lyn MD Date: 08/17/2024 Generated for Dasia beard/Jnoelle/Fanismitting on: 0 08/01/2025 08:16 AM EDT History and Physical Notes * HPI (History of Present Illness) Category Sub-Category Detail Notes Telehealth Location of [facility] rendering services:: {...} [address] [employer] [address] Location of patient:: address listed in demographics [...]
--- OUTSIDE RECORDS SUMMARY | 2025-02-15 05:00 | XMS_ITS ---
Author Organization Anderson Lyn III, MD Address [address] [place] [address] Care Team Providers Care Gas Tester Name Role Phone Jose Montgomery MD Primary Care Provider Anderson Mcnally Unavailable [phone] Allergies Allergen (clinical drug ingredient) Drug/Non Drug Allergy documented on EMR Reaction Allergy Type Onset Date Status No Known Drug Allergy Unknown Drug Allergy Active REASON FOR VISIT Chronic leukopenia, Discoid lupus, Possible mixed connective tissue disorder, Seasonal allergies, Hypertension Medications Medication SIG (Take, Route, Frequency, Duration) Notes Start Date End Date Status Vitamin D3 250 MCG (49357 UT) 1 capsule Orally Once a day [...] Provider Diagnosis Anderson Lyn III, MD [address] [place] [address] [address] [place], [place] [address] 02/15/2025 Anderson Lyn Leukopenia D72.819 ; Discoid [...] Stop Date Notes Vitamin D3 250 MCG (93159 UT) 1 capsule Orally Once a day [...] months, Reason: OV review labs Provider Name:Anderson Lyn, 11/29/2025 09:00:00 AM, [address] [facility] [place], [place], [address], Progress Notes * Zhanna CARTERDOB:1965 (59 yo F)Acc No.[id number]:02/15/2025 Progress Notes Patient: Zhanna BRO Provider: Letitia Lyn MD :1965 A ge:59 Y S ex:Female Date:02/15/2025 Address:[address] [place], [place] [address]LEY [id number] Pcp:Jose Montgomery MD Subjective: * Chief Complaints: * C hronic leukopeniaDiscoid lupusPossible mixed connective tissue disorderSeasonal allergiesHypertension * HPI: C OVID-19 Screening: She returns to [facility] office for a periodic scheduled visit [...] They have no children. 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 She is not a Presybeterian. * Medications: T akingVitamin D3 250 MCG (04166 UT) Capsule 1 capsule Orally Once a [...] with the patientTaking Vitamin D3 250 MCG (38493 UT) Capsule 1 capsule Orally Once a [...] 02/15/2025 Generated for Dasia beard/Jonelle/eTkavinsmitting on: 0 08/01/2025 08:14 AM EDT History and Physical Notes * [...]
--- NOTE | 2025-08-01 08:02 | A.OFFVIS_ITS ---
Vital Signs 08/01/25 08:08 Height 5 ft 8 in Weight 139 lb 5.314 oz BMI 21.2 BP 120/80 Blood Pressure Location Rt brachial Position Sitting Pulse 91 Pulse Source Pulse Oximeter Pulse Oximetry (%) 99 Oxygen Delivery Method Room Air Intake Visit Reasons: MCTD Intake Note: Patient presents for MCTD follow up. Allergies hydroxychloroquine Allergy (Mild, Verified 08/01/25 08:05) Hives sulfamethoxazole Allergy (Mild, Verified 08/01/25 08:05) Rash HPI Comments Details: Patient is a 60-year-old female with mixed connective tissue disease who presents today for follow up Interval History: Patient last seen 01/24/25 with me - On amlodipine 10mg daily - She reports she is doing well, Conservatively managing her Raynauds - No finger tip ulcers - Hands getting puffy and feel stiff in the AM - But is able to work through them throughout the day - DMARDs not indicated Today - On amlodipine 10mg daily - Has been doing well with respect to her Raynauds since its been summer - Still with stiffness in hands and knees but otherwise no significant co mplaints Rheumatologic History: MCTD 08/2024 - based on Raynaud's, mild sclerodactyly, high titer positive 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 - skin biopsy consistent with lupus, Raynaud's, puffy fingers, arthralgias, neutropenia, lymphopenia, +++PUBLIC RELATIONS COUNSELOR, +SSa +Dsdna PM/Scl 75 - started on hydroxychloroquine 300 mg daily for arthralgias and cytopenias 08/2024 - had rash likely secondary to hydroxychloroquine and so it was stopped 09/2024 - Amlodipine 10mg started 09/2024 for Raynauds Initial history: This is a 59-year-old female with history of discoid lupus who presents as a new patient for me to evaluate for underlying autoimmune rheumatic disease. She states that she was diagnosed with discoid lupus + alopecia based on a skin biopsy before 2013, she had lesions on her arms, forearms, scalp, she was treated with intralesional steroids and has been using topical steroid creams intermittently. She states that her rashes been well controlled overall. She n ever required systemic treatment. Since January of 2023 she has developed Raynaud's, affecting her fingers, her fingers color into blue and become cold and numb especially in the cold. Never had any digital tip ulcers. She is able to reverse the episodes using a heating pad for a few minutes. She also states that she has had opinion for many years that has been monitored. She does not recall having a bone marrow biopsy. She follows up regularly with a heme/oncologist. She also noticed some stiffness of her knees and shoulders with activity, morning stiffness lasts about 1 hour until she becomes completely loose. She has noticed some puffiness of her fingers. She denies any history of DVT/PE. Denies any fevers or weight loss. She is unaware of any family history of an autoimmune rheumatic disease. 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 Current occupational exposures/hazards: No Cognitive needs: No Hearing needs: No Vision needs: Yes Review of Systems Const Details: Review of Systems Constitutional: Denies fever, chills, weight loss ENT: Denies vision changes, eye pain or eye redness, dental caries, dry mouth GI: Denies nausea, vomiting, diarrhea, abdominal pain, change in BM Pulm: Denies SOB, PEREIRA, hemoptysis, wheezing Cards: Denies chest pain, palpitations Skin: Denies rash, nail changes, photosensitivity, GLASSINE MACHINE TENDER: Denies headaches, weakness, paresthesias, recurrent falls MSK: as per HPI All other systems reviewed and are unremarkable except noted above Physical Exam Exam Exam: Vital signs reviewed Physical Examination CONSTITUITIONAL Patient alert and cooperative. Well appearing and in no apparent painful distress MSK Hands * Right Hand: Able to make a fist. No swelling or tenderness to palpation of the MCPs, PIPs or DIPs. No deformities noted. * Left Hand: Able to make a fist. No swelling or tenderness to palpation of the MCPs, PIPs or DIPs. No deformities noted. Wrists * Right Wrist: Full ROM to flexion and extension. No swelling or TTP * Left Wrist: Full ROM to flexion and extension. No swelling or TTP Elbows * Right Elbow: Full ROM. No swelling or TTP. No TTP of the medial epicondyle. No TTP of the lateral epicondyle * Left Elbow: Full ROM. No swelling or TTP. No TTP of the medial epicondyle. No TTP of the lateral epicondyle Shoulders * Right shoulder: Full ROM. No swelling noted. No TTP of the AC joint. No TTP of the subacromial bursa. No TTP of the posterior shoulder * Left shoulder: Full ROM. No swelling noted. No TTP of the AC joint. No TTP of the subacromial bursa. No TTP of the posterior shoulder Knees * Right knee: Full ROM. No swelling noted. No TTP of the knee joint line. No TTP of pes anserine bursa * Left knee: Full ROM. No swelling noted. No TTP of the knee joint line. No TTP of pes anserine bursa. * Crepitations felt bilaterally Ankles * Right ankle: Good ankle dorsiflexion and plantar flexion. No swelling. No TTP of the ankle joint * Left ankle: Good ankle dorsiflexion and plantar flexion. No swelling. No TTP of the ankle joint Feet * Right foot: Negative squeeze test * Left foot: Negative squeeze test Tender points? * No tenderness to palpation of the bilateral trapezius, supraspinatus, anterior costochondral junctions, bilateral suboccipital muscle insertions SKIN No rashes Results Reviewed Results Reviewed: Laboratory Tests 07/25/25 06:20 WBC 2.1 L RBC 4.53 Hgb 13.4 Hct 40.0 Plt Count 257 ESR 12 Sodium 138 Potassium 4.2 Chloride 104 Carbon Dioxide 26 BUN 9 Creatinine 0.58 AST 32 H ALT 27 C-Reactive Protein < 0.04 Laboratory Tests 07/25/25 06:20 Double Strand DNA Ab 1 Complement C3 123 Complement C4 18 ECHO 03/2024 Findings Left Ventricle Normal left ventricular cavity size. There is mildly increased left ventricular wall thickness. The left ventricular systolic function is normal. The calculated ejection fraction is 63% by biplane method. There is no evidence of regional wall motion abnormalities. Diastolic function is normal for age. Right Ventricle Normal right ventricular cavity size and systolic function. Atria The left atrium is mildly dilated. The right atrium is normal in size. Aortic Valve There is a normal trileaflet aortic valve. There is no aortic valve stenosis. There is trace (trivial) aortic valve regurgitation. Mitral Valve There is mild mitral annular calcification. There is trace mitral valve regurgitation. There is no mitral valve stenosis. Pulmonic Valve The pulmonic valve is likely normal. Tricuspid Valve Normal tricuspid valve structure. There is mild tricuspid valve regurgitation. i. Great Vessels The asc aorta is normal in size. Venous The inferior vena cava is normal in size and collapses less than 50% with inspiration. Pericardium/Pleural There is no evidence of pericardial effusion. Assessment & Plan Assessment & Plan (1) MCTD (mixed connective tissue disease): Comment: dx 08/2024 (skin biopsy consistent with lupus, Raynaud's, puffy fingers, arthralgias, neutropenia, lymphopenia, +++PUBLIC RELATIONS COUNSELOR, +SSa +Dsdna PM/Scl 75) Plaquenil 08/2024 - 09/2024. Drug rash Code(s): M35.1 - Other overlap syndromes Category: Medical Plan: #MCTD Patient is a 60 year female with mixed connective tissue disease here today for follow up. Continues to manage her Raynaud's conservatively as well as with amlodipine. No fingertip ulcers. Overall doing well with no new complaints. Does not require DMARDs at this time Plan - Continue amlodipine 10mg daily - PAH monitoring: ECHO and PFTs due every 2-3 years. Last done 2023 - Monitor off DMARDs - RTC 1 year - Labs before visit: CBC, CMP, ESR, CRP, C3, C4, dsDNA, UA, UPC Plan I spent 20 minutes reviewing the record and labs, taking a history, examining the patient, discussing the treatment plan and documenting in the medical record Coding Level of Care Code Est Pt Level 3 (55418) Complex EM visit Add On G2211 Diagnoses MCTD (mixed connective tissue disease) M35.1
[2025-08-01 08:08] VITALS: BP 120/80; PULSE 91; O2SAT 99; BMI 21.2
--- OUTSIDE RECORDS SUMMARY | 2025-08-01 08:14 | XMS_ITS | Patient Health Record ---
Author Organization Anderson Lyn III, MD Address [address] [place] [address] Care Team Providers Care Adult Specialist Name Role Phone Jose Montgomery MD Primary Care Provider Anderson Mcnally Unavailable [phone] Allergies Allergen (clinical drug ingredient) Drug/Non Drug Allergy documented on EMR Reaction Allergy Type Onset Date Status No Known Drug Allergy Unknown Drug Allergy Active Results Component Value Reference Range Notes Calcium Reviewed date:08/21/2024 08:14:56 AM Interpretation: Performing Lab:[facility], [address] [place] [id number] Notes/Report: Calcium 9.8 8.4-10.2 mg/dL Parathyroid Hormone Intact Reviewed date:08/21/2024 08:14:56 AM Interpretation: Performing Lab:[facility], [address] [place] [phone] Notes/Report: Parathyroid Hormone Intact 58.9 8.7-77.1 pg/mL Reason For Referral No Information Medications Medication SIG (Take, Route, Frequency, Duration) Notes Start Date End Date Status Vitamin D3 250 MCG (44252 UT) 1 capsule Orally Once a day [...] Problem Status W/U Status Risk Notes Problem 1476700 Former smoker (Z87.891) Active confirmed We formulated a plan to prevent relapse and times of stress and illness. Problem 526589926053481 Right hip pain (M25.551) Active confirmed was serge disc Problem 45808826 Essential hypertension (I10) Active confirmed Her blood pressure is currently in the normal range and no change in her regimen as needed. Problem 16541745 Leukopenia (D72.819) Active confirmed Her total white blood cell count is 3000.. The differential is remarkable for a slightly diminished number of neutrophils and a slightly diminished number of lymphocytes.. She has had no infections. Surveillance was continued.An ultrasound of the spleen was noted to see if it has increased in size causing a further decline in the white blood cell Problem 653695714 History of iron deficiency anemia (Z86.2) Active confirmed There is currently no sign of iron deficiency and she does not require iron supplementatio n. Problem 453649112 Discoid lupus (L93.0) Active confirmed She is being evaluated by rheumatology. Her total protein is elevated to 9.3 but there are no monoclonal antibodies found on serum protein electrophoresi s. The antibodies against single-strande d DNA are positive. Problem 26142538 Alopecia areata (L63.9) Active confirmed He says this has resolved. Problem 907615314 Seasonal allergies (J30.2) Active confirmed She has [...] Date Provider Diagnosis Anderson Lyn III, MD [address] [place] [address] [address] [place], [place] [address] 08/17/2024 Anderson Lyn Leukopenia D72.819 ; Discoid lupus L93.0 ; History of iron deficiency anemia Z86.2 ; Essential hypertension I10 ; Seasonal allergies J30.2 and Former smoker Z87.891 Anderson Lyn III, MD [address] [place] [address] [address] [place], [place] [address] 02/15/2025 Anderson Lyn Leukopenia D72.819 ; Discoid [...] Details Provider Name:Anderson Coppolane, 11/29/2025 09:00:00 AM, [address] [place] [address] DR, [address], [place], [address], Insurance Providers Payer Name Payer Address Payer Phone Subscriber Number Group Number Insured Name Patient Relationship to Insured Coverage Start Date Coverage End Date [facility] [address] [facility] [address] [facility] [place] [phone] [id number] Zhanna Carter Self - patient is the insured Medical (General) History Medical History History ICD Code Discoid Lupus Alopecia areata 704.00 essential hypertension seasonal allergies benign fibroma breast iron deficiency anemia 2010 corrective lenses chronic leukopenia Surgical History Surgery Date(Month/Year) ultrasound-guided biopsy left breast, 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 Lee 09/2010
== END 2025-08-01 08:24 | disposition home or self-care (01) ==
LOC: HO.RHES 07:58
PROVIDERS: PCP Internal Medicine; Visit Provider Student in an Organized Health Care Education/Training Program
DX: M35.1 Other overlap syndromes (principal)
CPT/HCPCS: 99213; G2211

== ENCOUNTER 2025-08-16 08:50 | Outpatient (AMB) | payer OTHER, SELFPAY ==
--- OUTSIDE RECORDS SUMMARY | 2024-02-21 05:44 | XMS_ITS ---
Author Organization Anderson Lyn III, MD Address [address] [place] [address] Care Team Providers Care Learning Disabilities Teacher Name Role Phone Jose Montgomery MD Primary Care Provider Dr. Anderson Mcnally III Unavailable REASON FOR VISIT wants results of ultrasound Social History Sex Assigned At : Social History Observation Description Sex Assigned At Female Encounters Encounter Location Date Provider Diagnosis Anderson Lyn III, MD [address] [place] [address] [place] [address] 02/21/2024 Anderson Lyn Plan Of Treatment Next Appt Details Provider Name:Anderson Lyn , 11/29/2025 09:00:00 AM, [address] [place] [address] [place], [address], Progress Notes * Zhanna CARTERDOB:1965 (58 yo F)Acc No.[id number]:02/21/2024 Patient: Zhanna Garay :1965 A ge:58 Y S ex:Female Address:[address] [place] [address] [place], [address] * true * Date: Generated for Dasia beard/Fasarang/eTransmitting on: 0 08/16/2025 09:29 AM EDT
--- OUTSIDE RECORDS SUMMARY | 2024-03-29 05:45 | XMS_ITS ---
Author Organization Anderson Lyn III, MD Address [address] E[place] [address] Care Team Providers Care Arranger Assembler Name Role Phone Jose Montgomery MD Primary [...] Problem Status W/U Status Risk Notes Problem [id number] Former smoker (Z87.891) Active confirmed We formulated [...] Date Provider Diagnosis Anderson Lyn III, MD [address] [place] [address] [address] ANAHI, [place] [address] 03/29/2024 Anderson Lyn Leukopenia D72.819 ; Alopecia [...] Provider Name:Anderson Lyn , 11/29/2025 09:00:00 AM, [address] [place] [address] [address], [place], [address], Progress Notes * Zhanna CARTERDOB:1965 (58 yo F)Acc No.[id number]:03/29/2024 Progress Notes Patient: Zhanna Garay Provider: Letitia Lyn MD :1965 A ge:58 Y S ex:Female Date:03/29/2024 Address:[address] [place] [address] [address], [id number] Pcp:Jose Montgomery MD Subjective: * Chief Complaints: [...] They have no children. 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 She is not a Buddhism. * Medications: T akingClobetasol Propionate 0.05 % [...] - 03/21/2024) (Collection Date - 03/21/2024)?ValueReference Range?Vitamin [id number] - pg/mL ?Folate8.7> or = 4.0 - ng/mL ???Lab:Gamma Glutamyl Transpeptidase (Order Date - 03/21/2024) (Collection Date - 03/21/2024)?ValueReference Range?Gamma Glutamyl Dwebyxioscxblb61 7-33 - U/L * Examination: G eneral [...] 03/29/2024 Generated for Dasia beard/Jonelle/eTransmitting on: 0 08/16/2025 09:28 AM EDT History and Physical Notes * HPI (History of Present Illness) Category Sub-Category Detail Notes COVID-19 Screening Questions Have you had any new onset fever, chills, cough, congestion, sore throat, shortness of breath, muscle aches?: No Have you been exposed to the virus withi n the last 10 days?: No Have you travelled internationally in city hospital last 10 days?: No Have you [...]
--- OUTSIDE RECORDS SUMMARY | 2024-07-06 05:30 | XMS_ITS ---
Author Organization Anderson Lyn III, MD Address [address] ADAN Erich [place] [address] Care Team Providers Care Patient Advocate Name Role Phone Jose Montgomery MD Primary Care Provider Dr. Anderson Mcnally III Unavailable [phone] Allergies Allergen (clinical drug ingredient) Drug/Non Drug [...] Date Provider Diagnosis Anderson Lyn III, MD [address] [place] [address] LOC[address] Erich ANAHI, [place] [address] 07/06/2024 Anderson Lyn Leukopenia D72.819 ; Discoid [...] Provider Name:Anderson Lyn , 11/29/2025 09:00:00 AM, [address] [place] [address] [address], [place], [address], Progress Notes * Zhanna CARTERDOB:1965 (59 yo F)Acc No.[id number]:07/06/2024 Progress Notes Patient: Zhanna Garay Provider: Letitia Lyn MD :1965 A ge:59 Y S ex:Female Date:07/06/2024 Address:[address] [place] [address] Kurt SUERO [id number] Pcp:Jose Montgomery MD Subjective: * Chief Complaints: * L eukocytopeniaDiscoid lupusAllergiesIron deficiencyHypertension * HPI: C OVID-19 Screening: She returns for surveillance of her leukopenia. She has had no infections. She is now under the care of a personal development coach. Comprehensive blood work has been done. On [...] They have no children. 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
--- OUTSIDE RECORDS SUMMARY | 2024-08-17 05:30 | XMS_ITS ---
Author Organization Anderson Lyn III, MD Address [address] [place] [address] [place] [address] Care Team Providers Care Credit Counselor Name Role Phone Jose Montgomery MD Primary [...] Date Provider Diagnosis Anderson Lyn III, MD [address] [place] [address] [place] [address] 08/17/2024 Anderson Lyn Leukopenia D72.819 ; Discoid [...] Provider Name:Anderson Lyn , 11/29/2025 09:00:00 AM, [address] [place] [address] , [place] [address], [place], [address], Progress Notes * Zhanna CARTERDOB:1965 (59 yo F)Acc No.[id number]:08/17/2024 Patient: Zhanna BRO Provider: Letitia Lyn MD :1965 A ge:59 Y S ex:Female Date:08/17/2024 Address:[address] [place], [place] [address]O Kurt SUERO [id number] Pcp:Jose Montgomery MD Subjective: * Chief Complaints: [...] of provider rendering services: { ...} [address] [facility] [address] L ocation of patient: kylah katarzynamarie listed [...] They have no children. 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 * Medications: T akingClobetasol Propionate 0.05 % [...] Date: 08/17/2024 Generated for Dasia beard/Jonelle/Fanismitting on: 08/16/2025 09:28 AM EDT History and Physical Notes * HPI (History of Present Illness) Category Sub-Category Detail Notes Telehealth Location of [facility] rendering services:: {...} [address] [place] [address] Location of patient:: address listed in demographics [...]
--- OUTSIDE RECORDS SUMMARY | 2025-02-15 05:00 | XMS_ITS ---
Author Organization Anderson Lyn III, MD Address [address] [place] [address] Care Team Providers Care Manager Group Home Name Role Phone Jose Montgomery MD Primary [...] End Date Status Vitamin D3 250 MCG (01139 UT) 1 capsule Orally Once a day [...] Date Provider Diagnosis Anderson Lyn III, MD [address] [place] [address] [place] [address] 02/15/2025 Anderson Lyn Leukopenia D72.819 ; Discoid [...] Stop Date Notes Vitamin D3 250 MCG (13474 UT) 1 capsule Orally Once a day [...] Provider Name:Anderson Lyn , 11/29/2025 09:00:00 AM, [address] [place] [address] [place], [address], Progress Notes * Zhanna CARTERDOB:1965 (59 yo F)Acc No.[id number]:02/15/2025 Progress Notes Patient: Zhanna BRO Provider: Letitia Lyn MD :1965 A ge:59 Y S ex:Female Date:02/15/2025 Address:[address] [place] [address] NIMO [id number] Pcp:Jose Montgomery MD Subjective: * Chief Complaints: * C hronic leukopeniaDiscoid lupusPossible mixed connective tissue disorderSeasonal allergiesHypertension * HPI: C OVID-19 Screening: She returns to [facility] office for a periodic scheduled visit to [...] is not a Holiness. * Medications: T akingVitamin D3 250 MCG (52915 UT) Capsule 1 capsule Orally Once a [...] with the patientTaking Vitamin D3 250 MCG (89409 UT) Capsule 1 capsule Orally Once a [...] 0 02/15/2025 Generated for Dasia beard/Jonelle/eTkavinsmitting on: 0 08/16/2025 09:28 AM EDT History [...]
--- NOTE | 2025-08-16 08:01 | A.OFFPC_ITS ---
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 Required: No Accompanied by: Self / Same As Patient Allergies hydroxychloroquine Allergy (Mild, Verified 08/16/25 08:02) Hives sulfamethoxazole Allergy (Mild, Verified 08/16/25 08:02) Rash Medication List - Last Reconciled 08/20/25 by YE Myers amlodipine 10 mg PO DAILY betamethasone, augmented 0.05 % 1 appl topical DAILY cholecalciferol (vitamin D3) 25 mcg PO DAILY clobetasol 0.05% 1 appl topical DAILY Tobacco use date assessed: 08/16/25 Dental Screening Dental Screen Date: 08/16/25 Did you have a dental visit in the last 12 months?: Yes Did you have a dental problem in the last 6 months where you did not have access to dental care?: No HPI HPI Comments History of Present Illness Details The patient is a 60-year-old female with HTN, Mixed connective tissue disorder and Raynauds presenting with plantar warts and ongoing management of existing conditions. The patient has a history of mixed connective tissue disease, which is being managed by a shank scourer. She is currently on amlodipine 10 mg, initially prescribed for hypertension, which was later adjusted to manage Raynaud's phenomenon. Her BP today was 126/74. The patient reports hypercholesterolemia with a recent cholesterol level of 212 mg/dL on 07/25, which is slightly elevated but not requiring medication at this time. Her high-density lipoprotein (HDL) levels are favorable, mitigating the need for immediate intervention. The patient has plantar warts on both feet, which she initially thought were calluses due to frequent walking. The warts are confirmed to be viral infections, and a referral to a product safety consultant has been made for further management. The patient experiences osteoarthritis, particularly in the knees, with symptoms of crepitus noted during physical examination. She engages in regular exercise, including walking and fitness classes, and is advised to avoid high-impact activities to manage her symptoms. Preventative care measures include a colonoscopy performed in 2022 with a ten- year follow-up recommendation, a mammogram scheduled for next month, and a Pap smear due in the next visit. [facility] Medical History (Updated 08/20/25 @ 02:44 by YE Myers) Bilateral plantar wart HTN (hypertension) Plaquenil causing adverse effect in therapeutic use Surgical History History of colonoscopy (~03/15/23) Family History (Updated 08/16/25 @ 09:01 by Nilam Golden MA) Father Cancer of lung Brother Cancer of lung Brother Cancer of lung Mother No problems noted. 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 1. Little interest or pleasure in doing things: not at all 2. Feeling down, depressed, or hopeless: not at all 3. Trouble falling or staying asleep, or sleeping too much: not at all 4. Feeling tired or having little energy: not at all 5. Poor appetite or overeating: not at all 6. Feeling bad about yourself - or that you are a failure or have let yourself or your family down: not at all 7. Trouble concentrating on things, such as reading the newspaper or watching television: not at all 8. Moving or speaking so slowly that other people could have noticed. Or the opposite - being so fidgety or restless that you have been moving around a lot more than usual: not at all 9. Thoughts that you would be better off or of hurting yourself in some way: not at all Total score: 0 Source: Developed by Drs. Anderson Mike, Zhanna Cruz, Yared Ram and colleagues, with an educational celestine from [employer]. Thrive Questionnaire Date Thrive assessed: 08/16/25 I am a: Patient Within the past 12 months, did the food you bought not last and you didn't have the money to get more?: Never true Within the past 12 months, did you worry whether your food would run out before you got money to buy more?: Never true Do you have trouble paying for medicines?: No Do you have trouble getting transportation to medical appointments?: No Do you have trouble paying your heating and electricity bill?: No Do you have trouble taking care of your child, family member or friend?: No Do you have trouble with day-to-day activities such as bathing, preparing meals, shopping, managing finances, etc.?: No Are you currently unemployed and looking for a job?: No Are you interested in more education?: No THRIVE Score: 0 AUDIT C Alcohol Use Questionnaire (AUDIT-C) 1. How often do you have a drink containing alcohol?: Monthly or less 2. How many drinks containing alcohol do you have on a typical day when you are drinking?: 1 or 2 3. How often do you have six or more drinks on one occasion?: Less than monthly Total Score: 2 MONTSERRAT-7 AMB Questionnaire MONTSERRAT-7 Date MONTSERRAT - 7 assessed: 08/16/25 Feeling nervous, anxious, or on edge: 0 = Not at all Not being able to stop or control worryin = Not at all Worrying too much about different things: 0 = Not at all Trouble relaxin = Not at all Being so restless that it is hard to sit still: 0 = Not at all Becoming easily annoyed or irritable: 0 = Not at all Feeling afraid as if something awful might happen: 0 = Not at all Total MONTSERRAT-7 score (0-4 normal; 5-9 mild; 10-14 moderate; 15-21 severe): 0 Source: Developed by Drs. Anderson Mike, Zhanna Cruz, Yared Ram and colleagues, with an educational celestine from [employer]. Review of Systems Const Details: CONSTITUTIONAL Negative HEAD/NECK Negative EAR/NOSE/MOUTH/THROAT Negative RESPIRATORY Negative CARDIOVASCULAR Denies chest pain, shortness of breath, or cough GASTROINTESTINAL Reports occasional constipation MUSCULOSKELETAL Reports knee and back pain, denies swelling NEUROLOGICAL Negative SKIN Bumps on balls of both feet PSYCHIATRIC Negative Physical exam (Primary Care) Vital Signs: Last Vital Signs Temp 97.6 F 08/16/25 08:02 Pulse 106 H 08/16/25 08:02 BP 126/74 08/16/25 08:02 Pulse Ox 98 08/16/25 08:02 Oxygen Delivery Method Room Air 08/16/25 08:02 BMI result Body Mass Index 21.1 GENERAL Well developed, Well nourished, in no apparent distress HEENT Head-Normocephalic Eyes- PERRLA, EOMI, Conjuctiva clear, lids WNL Ears- Canals clear, TMs WNL Mouth/Throat-No lesions, no erythema, no exudate Neck- Supple, No lymphadenopathy, thyroid WNL RESPIRATORY Normal I:E, Clear to auscultation CARDIOVASCULAR Regular, rate and rhythm, No murmurs or rubs GASTROINTESTINAL Soft, nontender, normal bowel sounds, no masses MUSCULOSKELETAL Back- nontender Joints- no pain swelling or deformity NEUROLOGICAL Gait normal SKIN plantar warts balls of both feet PSYCHIATRIC Oriented to person, place and time Mood and affect WNL Appearance WNL Speech WNL Thought processes WNL Tobacco/Smoking Status: Tobacco use Status Tobacco use date assessed 08/16/25 08/16/25 08:03 Patient Tobacco Use Status Former Tobacco user 08/16/25 08:03 Tobacco use type Cigarette 08/16/25 08:03 e-Cigarette/Vaping Use Former Use 08/16/25 08:03 PHQ-9: PHQ-9 Score PHQ-9: Total score 0 08/16/25 09:02 Thrive Assessment: Date of Thrive Assessment Date Thrive assessed 08/16/25 08/16/25 08:03 Coding Level of Care Code New Pt New Pt Level 4 (48529) Patient Type New Diagnoses Raynaud's disease without gangrene I73.00 Raynaud?s-associated gangrene presence: without gangrene Primary hypertension I10 Hypertension type: primary hypertension Bilateral plantar wart B07.0 Screening for hyperlipidemia Z13.220 MCTD (mixed connective tissue disease) M35.1 Time Spent (min) 30 Comment Time spent on chart review, medication reconciliation, H&P, patient education, orders Assessment & Plan Assessment & Plan (1) Raynauds disease: Code(s): I73.00 - Raynaud's syndrome without gangrene Category: Medical Qualifiers: Raynaud?s-associated gangrene presence: without gangrene Qualified Code(s): I73.00 - Raynaud's syndrome without gangrene Plan: Raynaud's phenomenon is managed with amlodipine, which was initially prescribed for hypertension and later adjusted for this condition. (2) HTN (hypertension): Comment: BP today was 126/74 Code(s): I10 - Essential (primary) hypertension Category: Medical Qualifiers: Hypertension type: primary hypertension Qualified Code(s): I10 - Essential (primary) hypertension Plan: BP controlled. Patient will continue current medications. Will monitor. Patient will follow up in 6 months. (3) Bilateral plantar wart: Code(s): B07.0 - Plantar wart Category: Medical Plan: Plantar warts on both feet have been identified, and a referral to a product safety consultant has been made for further management, including potential removal. (4) Screening for hyperlipidemia: Code(s): Z13.220 - Encounter for screening for lipoid disorders Category: Medical Plan: The patient's cholesterol level is slightly elevated at 212 mg/dL, but due to favorable HDL levels, no medication is required at this time. Annual monitoring is recommended. 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 Drug rash Code(s): M35.1 - Other overlap syndromes Category: Medical Plan: The patient is under the care of a shank scourer for mixed connective tissue disease, with no new interventions discussed during this visit. Plan During the visit, I discussed the management of plantar warts, explaining that they are viral infections and recommending a referral to a product safety consultant for potential removal. We also reviewed the patient's cholesterol levels, noting that while slightly elevated, the high HDL levels mitigate immediate concern, and annual monitoring is advised. The importance of regular exercise for managing osteoarthritis was emphasized, with a focus on avoiding high-impact activities. Follow-up care includes a referral to a product safety consultant and routine monitoring of cholesterol levels. Orders: Referrals Podiatry Referral B07.0 - Plantar wart Patient Instructions: - Follow up with the product safety consultant for plantar wart management. - Continue regular exercise, focusing on low-impact activities to manage osteoarthritis. - Monitor cholesterol levels annually.
[2025-08-16 08:02] VITALS: BP 126/74; PULSE 106; TEMP 36.4; O2SAT 98; BMI 21.1
--- OUTSIDE RECORDS SUMMARY | 2025-08-16 09:28 | XMS_ITS | Patient Health Record ---
Author Organization Anderson Lyn III, MD Address [address] [place] [address] DR ADAN Erich [place] [id number] Care Team Providers Care Small Battery Plate Assembler Name Role Phone Jose Montgomery MD Primary Care Provider Berta Dr. Anderson Gil III Unavailable [phone] Allergies Allergen (clinical drug ingredient) Drug/Non Drug Allergy documented on EMR Reaction Allergy Type Onset Date Status No Known Drug Allergy Unknown Drug Allergy Active Reason For Referral No Information Medications Medication SIG (Take, Route, Frequency, Duration) Notes Start Date End Date Status Vitamin D3 250 MCG (65049 UT) 1 capsule Orally Once a day [...] Problem Status W/U Status Risk Notes Problem 0796319 Former smoker (Z87.891) Active confirmed We formulated a plan to prevent relapse and times of stress and illness. Problem 173101623606466 Right hip pain (M25.551) Active confirmed was serge disc Problem 31538341 Essential hypertension (I10) Active confirmed Her blood pressure is currently in the normal range and no change in her regimen as needed. Problem 11571713 Leukopenia (D72.819) Active confirmed Her total white blood cell count is 3000.. The differential is remarkable for a slightly diminished number of neutrophils and a slightly diminished number of lymphocytes.. She has had no infections. Surveillance was continued.An ultrasound of the spleen was noted to see if it has increased in size causing a further decline in the white blood cell Problem 280318640 History of iron deficiency anemia (Z86.2) Active confirmed There is currently no sign of iron deficiency and she does not require iron supplementatio n. 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 Her total protein is elevated to 9.3 but there are no monoclonal antibodies found on serum protein electrophoresi s. The antibodies against single-strande d DNA are positive. Problem 82261208 Alopecia areata (L63.9) Active confirmed He says this has resolved. Problem 321479709 Seasonal allergies (J30.2) Active confirmed She has [...] Provider Diagnosis Anderson Lyn III, MD [address] [place] [address] [place] [phone] 08/17/2024 Anderson Lyn Leukopenia D72.819 ; Discoid lupus L93.0 ; History of iron deficiency anemia Z86.2 ; Essential hypertension I10 ; Seasonal allergies J30.2 and Former smoker Z87.891 Anderson Lyn III, MD [address] [place] [address] DR MOREL, [place] [address] 02/15/2025 Anderson Lyn Leukopenia D72.819 ; Discoid [...] ) 06/04/2022 PROFILE, RANDOM (COMPREHENSIVE METABOLIC ) 03/29/2024 PROFILE, RANDOM (COMPREHENSIVE METABOLIC ) 01/06/2018 PROFILE, RANDOM (COMPREHENSIVE METABOLIC ) 11/28/2020 PROFILE, RANDOM (COMPREHENSIVE METABOLIC ) 01/26/2024 PROFILE, [...] CBC w DIFF 06/04/2022 CBC w DIFF 03/29/2024 CBC w DIFF 01/06/2018 CBC w DIFF 11/28/2020 CBC w DIFF 02/15/2025 CBC w DIFF [...] Intact 07/06/2024 Next Appt Details Provider Name:Anderson Lyn , 11/29/2025 09:00:00 AM, [address] [place] [address] DR, [address], [place], [id number], Insurance Providers Payer Name Payer Address Payer Phone Subscriber Number Group Number Insured Name Patient Relationship to Insured Coverage Start Date Coverage End Date [facility] [address] [facility] [place] [phone] [id number] Zhanna Carter Self - patient is the insured Medical (General) History Medical History History ICD Code Discoid Lupus Alopecia areata 704.00 essential hypertension seasonal allergies benign fibroma breast iron deficiency anemia 2010 corrective lenses chronic leukopenia Surgical History Surgery Date(Month/Year) ultrasound-guided biopsy left breast, 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 Lee 09/2010
--- OUTSIDE RECORDS SUMMARY | 2025-08-16 09:29 | XMS_ITS | Patient Health Record ---
Author Organization [facility] Address [address] [place] [address] Care Team Providers Care Optimization Manager Name Role Phone Valentina (RETIRED) Jose DAVIS Primary Care Provide r Anderson Alonso Unavailable [phone] Allergies No Known Allergies Reason For Referral [...] Problem Status W/U Status Risk Notes Problem 817563452 Colon cancer screening (Z12.11) Active confirmed Problem Diverticular disease of colon (273198576) Diverticulosis of large intestine without perforation or abscess without bleeding (K57.30) Active confirmed Problem 13946073 Constipation, unspecified constipation type (K59.00) Active confirmed Plan Of Treatment Pending Test Test Name Order Date Pathology 03/15/2023 Future Test Test Name Order Date COLONOSCOPY 12/22/2022 Insurance Providers Payer Name Payer Address Payer Phone Subscriber Number Group Number Insured Name Patient Relationship to Insured Coverage Start Date Coverage End Date [facility] [address] [facility] [place] [phone] [id number] AMNA SALINAS Self - patient is the insured Medical (General) History Medical History History ICD Code Hypertension Denies PR,DM,CVA,Lung disease,renal dise ase Negative colon[place] [address] Guy leach Surgical History Surgery Date(Month/Year)
== END 2025-08-16 09:31 | disposition home or self-care (01) ==
LOC: HO.HMCHD 08:51
PROVIDERS: PCP Internal Medicine; Visit Provider Physician Assistant Medical
DX: I73.00 Raynaud's syndrome without gangrene (principal); I10 Essential (primary) hypertension; B07.0 Plantar wart; Z13.220 Encounter for screening for lipoid disorders; M35.1 Other overlap syndromes

== ENCOUNTER 2025-09-04 08:26 | Outpatient (AMB) | payer OTHER, SELFPAY ==
--- OUTSIDE RECORDS SUMMARY | 2024-03-29 05:45 | XMS_ITS ---
Author Organization Anderson Lyn III, MD Address [address] [place] [address] Care Team Providers Care Lay Brother Name Role Phone Jose Montgomery MD Primary Care Provider Dr. Anderson Mcnally III Unavailable Allergies Allergen (clinical drug ingredient) Drug/Non Drug [...] Problem Status W/U Status Risk Notes Problem 2489684 Former smoker (Z87.891) Active confirmed We formulated [...] Date Provider Diagnosis Anderson Lyn III, MD [address] [place] [address] [address] CUEVAS ANAHI, [place] [address] 03/29/2024 Anderson Lyn Leukopenia D72.819 ; Alopecia [...] Months, Reason: ov review labs Provider Name:Anderson Lyn , 11/29/2025 09:00:00 AM, [address] [place] [address] LOCO GABRIEL, [place], [address], Progress Notes * Zhanna CARTERDOB:1965 (58 yo F)Acc No.[id number]:03/29/2024 Progress Notes Patient: Zhanna Garay Provider: Letitia Lyn MD :1965 A ge:58 Y S ex:Female Date:03/29/2024 Address:[address] [place] [address] [address] [place], [id number] Pcp:Jose Montgomery MD Subjective: * Chief Complaints: [...] Tobacco Non-User E x-cigarette smoker H er collins dided of bladder cancer April 2023. They have no children. 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 She is not a Restorationism. * Medications: T akingClobetasol Propionate 0.05 % [...] - 03/21/2024) (Collection Date - 03/21/2024)?ValueReference Range?Vitamin [id number] - pg/mL ?Folate8.7> or = 4.0 - ng/mL ???Lab:Gamma Glutamyl Transpeptidase (Order Date - 03/21/2024) (Collection Date - 03/21/2024)?ValueReference Range?Gamma Glutamyl Neayinzemxlyum83 7-33 - U/L * Examination: G eneral [...] 0 03/29/2024 Generated for Dasia beard/Jonelle/eTransmitting on: 1 08:48 AM EDT History and Physical Notes * HPI (History of Present Illness) Category Sub-Category Detail Notes COVID-19 Screening Questions Have you had any new onset fever, chills, cough, congestion, sore throat, shortness of breath, muscle aches?: No Have you been exposed to the virus withi n the last 10 days?: No Have you travelled internationally in [facility] last 10 days?: No Have you [...]
--- OUTSIDE RECORDS SUMMARY | 2024-07-06 05:30 | XMS_ITS ---
Author Organization Anderson Lyn III, MD Address [address] [place] [address] Care Team Providers Care Support Service Tech Name Role Phone Jose Montgomery MD Primary Care Provider Dr. Anderson Mcnally III Unavailable [phone] Allergies Allergen (clinical drug ingredient) Drug/Non Drug [...] Date Provider Diagnosis Anderson Lyn III, MD [address] [place] [address] [address] [place], [place] [address] 07/06/2024 Anderson Lyn Leukopenia D72.819 ; Discoid [...] Provider Name:Anderson Lyn , 11/29/2025 09:00:00 AM, [address] [place] [address] [address], [place], [address], Progress Notes * Zhanna CARTERDOB:1965 (59 yo F)Acc No.[id number]:07/06/2024 Progress Notes Patient: Zhanna Garay Provider: Letitia Lyn MD :1965 A ge:59 Y S ex:Female Date:07/06/2024 Address:[address] [place] [address] [address] [place] [id number] Pcp:Jose Montgomery MD Subjective: * Chief Complaints: * L eukocytopeniaDiscoid lupusAllergiesIron deficiencyHypertension * HPI: C OVID-19 Screening: She returns for surveillance of her leukopenia. She has had no infections. She is now under the care of a engraver automatic. Comprehensive blood work has been done. On [...] They have no children. 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 She is not a Spiritism. * Medications: T akingClobetasol Propionate 0.05 % [...] 07/06/2024 Generated for Dasia beard/Jonelle/eTransmitting on: 1 08:48 AM EDT History and Physical Notes * HPI (History of Present Illness) Category Sub-Category Detail Notes COVID-19 Screening Questions Have you had any new onset fever, chills, cough, congestion, sore throat, shortness of breath, muscle aches?: No Have you been exposed to the virus withi n the last 10 days?: No Have you travelled internationally in [facility] last 10 days?: No Have you [...]
--- OUTSIDE RECORDS SUMMARY | 2024-08-17 05:30 | XMS_ITS ---
Author Organization Anderson Lyn III, MD Address [address] [place] [address] [place] [address] Care Team Providers Care Gas Engineer Name Role Phone Jose Montgomery MD Primary Care Provider Dr. Anderson Mcnally III Unavailable [phone] Allergies Allergen (clinical drug ingredient) Drug/Non Drug [...] Date Provider Diagnosis Anderson Lyn III, MD [address] [place] [address] [place] [address] 08/17/2024 Anderson Lyn Leukopenia D72.819 ; Discoid [...] Provider Name:Anderson Lyn , 11/29/2025 09:00:00 AM, [address] [place] [address] , [place] [address], [place], [address], Progress Notes * Zhanna CARTERDOB:1965 (59 yo F)Acc No.[id number]:08/17/2024 Patient: Zhanna BRO Provider: Letitia Lyn MD :1965 A ge:59 Y S ex:Female Date:08/17/2024 Address:[address] [place], [place] [address]E[address] Kurt SUERO [id number] Pcp:Jose Montgomery MD Subjective: * Chief Complaints: [...] of provider rendering services: { ...} [address] [facility] [address] L ocation of patient: kylah katarzynamarie listed [...] They have no children. 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 * Medications: T akingClobetasol Propionate 0.05 % [...] 08/17/2024 Generated for Dasia beard/Jonelle/Fanismitting on: 1 08:49 AM EDT History and Physical Notes * HPI (History of Present Illness) Category Sub-Category Detail Notes Telehealth Location of [facility] rendering services:: {...} [address] [place] [address] Location of patient:: address listed in demographics [...]
--- OUTSIDE RECORDS SUMMARY | 2025-02-15 05:00 | XMS_ITS ---
Author Organization Anderson Lyn III, MD Address [address] [place] [address] Care Team Providers Care Disability Aide Name Role Phone Jose Montgoemry MD Primary Care Provider Dr. Anderson Mcnally [...] End Date Status Vitamin D3 250 MCG (91234 UT) 1 capsule Orally Once a day [...] Date Provider Diagnosis Anderson Lyn III, MD [address] [place] [address] [place] [address] 02/15/2025 Anderson Lyn Leukopenia D72.819 ; Discoid [...] Stop Date Notes Vitamin D3 250 MCG (27391 UT) 1 capsule Orally Once a day [...] Provider Name:Anderson Lyn , 11/29/2025 09:00:00 AM, [address] [place] [address] [place], [address], Progress Notes * Zhanna CARTERDOB:1965 (59 yo F)Acc No.[id number]:02/15/2025 Progress Notes Patient: Zhanna BRO Provider: Letitia Lyn MD :1965 A ge:59 Y S ex:Female Date:02/15/2025 Address:[address] [place] [address] N[place] [id number] Pcp:Jose Montgomery MD Subjective: * Chief Complaints: * C hronic leukopeniaDiscoid lupusPossible mixed connective tissue disorderSeasonal allergiesHypertension * HPI: C OVID-19 Screening: She returns to [facility] office for a periodic scheduled visit [...] is not a Restorationist. * Medications: T akingVitamin D3 250 MCG (29450 UT) Capsule 1 capsule Orally Once a [...] with the patientTaking Vitamin D3 250 MCG (00392 UT) Capsule 1 capsule Orally Once a [...] 02/15/2025 Generated for Dasia beard/Jonelle/eTkavinsmitting on: 1 08:48 AM EDT History and [...]
--- NOTE | 2025-09-04 08:33 | MHC.OFFVIS ---
Vital Signs 09/04/25 08:34 Height 5 ft 8 in Weight 140 lb BMI 21.3 Intake Visit Reasons: New patient- bilateral Plantar Warts Intake Note: Zhanna is a 60 year old female who presents as a New Patient for evaluation of bilateral plantar warts. Pt reports she has been dealing with the warts for several months and she has not tried any treatment. She notes experiencing pain on the plantar aspect of her feet when she bears weight. Allergies hydroxychloroquine Allergy (Mild, Verified 09/04/25 08:34) Hives sulfamethoxazole Allergy (Mild, Verified 09/04/25 08:34) Rash HPI HPI New patient- bilateral Plantar Warts: Details: 60-year-old female no pertinent past medical history presents for initial evaluation of bilateral foot pain. She states she saw another provider told her that she has warts on the bottom her feet. She 1st noted these lesions proximally 3-4 months ago. Denies any history of injuries. She states that she likes to walk a lot and believes thats why she is developing these lesions. She has tried different shoe wears and has bought Dr. Sosa's inserts. [facility] Medical History (Updated 09/04/25 @ 09:04 by Dayron Holliday DPM) Bilateral plantar wart Plaquenil causing adverse effect in therapeutic use HTN (hypertension) Surgical History History of colonoscopy (~03/15/23) Family History (Updated 08/16/25 @ 09:01 by Nilam Golden MA) Father Cancer of lung Brother Cancer of lung Brother Cancer of lung Mother No problems noted. 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 no pinpoint bleeding. no underlying ulcers. Neuro: protective sensation grossly intact to bilateral lower extremities. MSK: high arch foot type, semi-rigid. mild tenderness on palpation of the lesions. No pain on radial pressure. Office Procedures AMB Debridement/Avulsion Podia Details: Procedure: Callus debridement Location: submet 3 bilateral feet (2 lesions total) Anesthesia: N/A Description: The affected area was cleansed with an antiseptic solution. Using a sterile #15 blade, the hyperkeratotic tissue was radially debrided from the foot. All callused tissue was removed down to normal skin without causing bleeding or discomfort. The area was inspected for underlying ulceration or infection. Patient tolerated the procedure well. No complications noted. Tolerance: Patient tolerated procedure well, no immediate complications. 78522-Jdcjppobayp of Callus (2-4) Procedure code (CPT) selection complete AMB Podiatry Dressing Details of Procedure: Procedure: Off-loading pad Indication: Bilateral lower extremity porokeratosis lesions Description: An off-loading [] pad was created using 1/4 felt and applied to the patient's shoes. Tolerance: Patient tolerated procedure well, no immediate complications. 16335 Strapping of foot/toe Procedure code (CPT) selection complete Assessment & Plan Assessment & Plan (1) Acquired porokeratosis: Code(s): L98.8 - Other specified disorders of the skin and subcutaneous tissue Category: Medical Plan: Differential diagnosis includes IPK lesions, verruca lesions, and underlying bone spurs. Debrided bilateral feet with #15 blade. Rx Urea cream 20% Follow up in 4 weeks (2) Cavus deformity of both feet: Code(s): Q66.71 - Congenital pes cavus, right foot; Q66.72 - Congenital pes cavus, left foot Category: Medical Plan: Educated the patient on his foot type. Explained that his high arch foot type (Cavus feet) can lead to altered weight distribution, resulting in increased pressure on the heel and forefoot. Patients may experience symptoms such as pain, callus formation, tendinitis, instability, lateral ankle sprains, and, in some cases, development of digital deformities (e.g., claw toes or hammertoes). Discussed the importance of shoe type with heel and forefoot padding and support.. Recommended bilateral x-rays which the patient deferred at this time. Orders: Orders AMB Debridement/Avulsion Podiatry Today L98.8 - Other specified disorders of the skin and subcutaneous tissue AMB Podiatry Dressing Today L98.8 - Other specified disorders of the skin and subcutaneous tissue Medications: New urea 20% Applied to corns and calluses twice a day. 1 appl topical BID 85 grams 3RF corn L98.8 - Other specified disorders of the skin and subcutaneous tissue Coding Level of Care Code New Pt Level 3 (14063) Diagnoses Acquired porokeratosis L98.8 Cavus deformity of both feet Q66.71; Q66.72 CPT Codes Skin Debridement - CPT: 04003-Oxmpsrijclm of Callus (2-4) ([id number]) Podiatry Dressing - CPT: 22601 Strapping of foot/toe ([id number]) Time Spent (min) 35
[2025-09-04 08:34] VITALS: BMI 21.3
--- OUTSIDE RECORDS SUMMARY | 2025-09-04 08:48 | XMS_ITS | Patient Health Record ---
Author Organization Anderson Lyn III, MD Address [address] [place] [address] DR ADAN Erich A[place]HI [place] [address] Care Team Providers Care Administrative Services Assistant Name Role Phone Jose Montgomery MD Primary Care Provider Berta Dr. Anderson Gil III Unavailable Allergies Allergen (clinical drug ingredient) Drug/Non Drug Allergy documented on EMR Reaction Allergy Type Onset Date Status No Known Drug Allergy Unknown Drug Allergy Active Reason For Referral No Information Medications Medication SIG (Take, Route, Frequency, Duration) Notes Start Date End Date Status Vitamin D3 250 MCG (77241 UT) 1 capsule Orally Once a day [...] Problem Status W/U Status Risk Notes Problem 0237769 Former smoker (Z87.891) Active confirmed We formulated a plan to prevent relapse and times of stress and illness. Problem 518519384740516 Right hip pain (M25.551) Active confirmed was serge disc Problem 15449025 Essential hypertension (I10) Active confirmed Her blood pressure is currently in the normal range and no change in her regimen as needed. Problem 88602670 Leukopenia (D72.819) Active confirmed Her total white blood cell count is 3000.. The differential is remarkable for a slightly diminished number of neutrophils and a slightly diminished number of lymphocytes.. She has had no infections. Surveillance was continued.An ultrasound of the spleen was noted to see if it has increased in size causing a further decline in the white blood cell Problem 462563156 History of iron deficiency anemia (Z86.2) Active confirmed There is currently no sign of iron deficiency and she does not require iron supplementatio n. 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 Her total protein is elevated to 9.3 but there are no monoclonal antibodies found on serum protein electrophoresi s. The antibodies against single-strande d DNA are positive. Problem 97494974 Alopecia areata (L63.9) Active confirmed He says this has resolved. Problem 914230314 Seasonal allergies (J30.2) Active confirmed She has [...] Provider Diagnosis Anderson Lyn III, MD [address] [place] [address] DR MOREL, [place] [address] 02/15/2025 Anderson Lyn Leukopenia D72.819 ; Discoid [...] Provider Name:Anderson Lyn , 11/29/2025 09:00:00 AM, [address] [place] [address] DR, [place] [address], [place], [address], Insurance Providers Payer Name Payer Address Payer Phone Subscriber Number Group Number Insured Name Patient Relationship to Insured Coverage Start Date Coverage End Date [address] [place] [phone] [id number] Zhanna Carter Self - patient is the insured Medical (General) History Medical History History ICD Code Discoid Lupus Alopecia areata 704.00 essential hypertension seasonal allergies benign fibroma breast iron deficiency anemia 2010 corrective lenses chronic leukopenia Surgical History Surgery Date(Month/Year) ultrasound-guided biopsy left breast, 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 Lee 09/2010
--- OUTSIDE RECORDS SUMMARY | 2025-09-04 08:49 | XMS_ITS | Patient Health Record ---
Author Organization [facility] Address [address] [place] [address] Care Team Providers Care Mash Grinder Name Role Phone Valentina (RETIRED) Jose DAVIS Primary Care Provide r Anderson Alonso Unavailable [phone] Allergies No Known Allergies Reason For Referral No Information Medications Medication SIG (Take, Route, Frequency, Duration) Notes Start Date End Date Status Clobetasol Propionate Active Betamethasone Dipropionate 0.05 % APPLY TWICE DAILY NEEDED FOR FACE AND BODY External; Duration: 30 Active amLODIPine Besylate 2.5 MG TAKE 1 TABLET BY MOUTH EVERY DAY Oral; Duration: 90 Active Immunizations Vaccine Route Administration Date [...] Problem Status W/U Status Risk Notes Problem Colon cancer screening (245973764) Colon cancer screening (Z12.11) Active confirmed Problem Diverticular disease of colon (361383674) Diverticulosis of large intestine without perforation or abscess without bleeding (K57.30) Active confirmed Problem Constipation (68429678) Constipation, unspecified constipation type (K59.00) Active confirmed Plan Of Treatment Pending Test Test Name Order Date Pathology 03/15/2023 Future Test Test Name Order Date COLONOSCOPY 12/22/2022 Insurance Providers Payer Name Payer Address Payer Phone Subscriber Number Group Number Insured Name Patient Relationship to Insured Coverage Start Date Coverage End Date [facility] [address] [facility] [place] [phone] [id number] AMNA SALINAS Self - patient is the insured Medical (General) History Medical History History ICD Code Hypertension Denies [place],DM,CVA,Lung disease,renal dise ase Negative colonoscopy [place] [address] Guy leach Surgical History Surgery Date(Month/Year)
== END 2025-09-04 08:57 | disposition home or self-care (01) ==
LOC: HO.HPODS 08:27
PROVIDERS: PCP Physician Assistant Medical; Visit Provider Student in an Organized Health Care Education/Training Program
DX: L98.8 Other specified disorders of the skin and subcutaneous tissue (principal); Q66.71 Congenital pes cavus, right foot; Q66.72 Congenital pes cavus, left foot
CPT/HCPCS: 11056; 29550; 99203

== ENCOUNTER → 2025-09-04 08:26 | Outpatient (BNVA) | payer OTHER, SELFPAY | PROVIDERS: PCP Physician Assistant Medical; Visit Provider Student in an Organized Health Care Education/Training Program | DX: L98.8 Other specified disorders of the skin and subcutaneous tissue (principal); Q66.71 Congenital pes cavus, right foot; Q66.72 Congenital pes cavus, left foot; M79.671 Pain in right foot; M79.672 Pain in left foot | CPT/HCPCS: 11056; 29550 ==

== ENCOUNTER 2025-09-10 07:40 | Outpatient (REF) | payer OTHER, SELFPAY ==
--- OUTSIDE RECORDS SUMMARY | 2024-03-29 05:45 | XMS_ITS ---
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 Anderson Mcnally III Unavailable [phone] Allergies Allergen (clinical drug ingredient) Drug/Non Drug [...] Problem Status W/U Status Risk Notes Problem 2697421 Former smoker (Z87.891) Active confirmed We formulated [...] Date Provider Diagnosis Anderson Lyn III, MD [address] [place] [address] DR CUEVAS ANAHI, [place] [address] 03/29/2024 Anderson Lyn Leukopenia D72.819 ; Alopecia [...] Provider Name:Anderson Lyn , 11/29/2025 09:00:00 AM, [address] [place] [address] LOC[address]ABRIEL, [place], [address], Progress Notes * Zhanna CARTERDOB:1965 (58 yo F)Acc No.[id number]:03/29/2024 Progress Notes Patient: Zhanna Garay Provider: Letitia Lyn MD :1965 A ge:58 Y S ex:Female Date:03/29/2024 Address:[address] [place] [address] [place], [id number] Pcp:Jose Montgomery MD Subjective: * Chief Complaints: [...] They have no children. 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 * Medications: T akingClobetasol Propionate 0.05 % [...] - 03/21/2024) (Collection Date - 03/21/2024)?ValueReference Range?Vitamin [id number] - pg/mL ?Folate8.7> or = 4.0 - ng/mL ???Lab:Gamma Glutamyl Transpeptidase (Order Date - 03/21/2024) (Collection Date - 03/21/2024)?ValueReference Range?Gamma Glutamyl Lkwukqcjbzafxc05 7-33 - U/L * Examination: G eneral [...] 03/29/2024 Generated for Dasia beard/Jonelle/eTransmitting on: 1 07:44 AM EDT History and Physical Notes * HPI (History of Present Illness) Category Sub-Category Detail Notes COVID-19 Screening Questions Have you had any new onset fever, chills, cough, congestion, sore throat, shortness of breath, muscle aches?: No Have you been exposed to the virus withi n the last 10 days?: No Have you travelled internationally in [facility] last 10 days?: No Have you been [...]
--- OUTSIDE RECORDS SUMMARY | 2024-07-06 05:30 | XMS_ITS ---
Author Organization Anderson Lyn III, MD Address [address] ADAN Erich [place] [address] Care Team Providers Care Urban Redevelopment Specialist Name Role Phone Jose Montgomery MD Primary [...] Date Provider Diagnosis Anderson Lyn III, MD [address] [place] [address] LOCO Erich ANAHI, [place] [address] 07/06/2024 Anderson Lyn Leukopenia D72.819 ; Discoid [...] Provider Name:Anderson Lyn , 11/29/2025 09:00:00 AM, [address] [place] [address] [address], [place], [address], Progress Notes * Zhanna CARTERDOB:1965 (59 yo F)Acc No.[id number]:07/06/2024 Progress Notes Patient: Zhanna Garay Provider: Letitia Lyn MD :1965 A ge:59 Y S ex:Female Date:07/06/2024 Address:[address] [place] [address] Kurt SUERO [id number] Pcp:Jose Montgomery MD Subjective: * Chief Complaints: * L eukocytopeniaDiscoid lupusAllergiesIron deficiencyHypertension * HPI: C OVID-19 Screening: She returns for surveillance of her leukopenia. She has had no infections. She is now under the care of a motorcycle riding instructor. Comprehensive blood work has been done. On [...] They have no children. 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 She is not a Restoration. * Medications: T akingClobetasol Propionate 0.05 % [...] 07/06/2024 Generated for Dasia beard/Jonelle/eTransmitting on: 1 07:44 AM EDT History and Physical Notes * HPI (History of Present Illness) Category Sub-Category Detail Notes COVID-19 Screening Questions Have you had any new onset fever, chills, cough, congestion, sore throat, shortness of breath, muscle aches?: No Have you been exposed to the virus withi n the last 10 days?: No Have you travelled internationally in [facility] last 10 days?: No Have you [...]
--- OUTSIDE RECORDS SUMMARY | 2024-08-17 05:30 | XMS_ITS ---
Author Organization Anderson Lyn III, MD Address [address] [place] [address] [place] [address] Care Team Providers Care Mini Baccarat Dealer Name Role Phone Jose Montgomery MD Primary [...] Date Provider Diagnosis Anderson Lyn III, MD [address] [place] [address] [place] [address] 08/17/2024 Anderson Lyn Leukopenia D72.819 ; Discoid [...] Provider Name:Anderson Lyn , 11/29/2025 09:00:00 AM, [address] [place] [address] , [place] [address], [place], [address], Progress Notes * Zhanna CARTERDOB:1965 (59 yo F)Acc No.[id number]:08/17/2024 Patient: Zhanna BRO Provider: Letitia Lyn MD :1965 A ge:59 Y S ex:Female Date:08/17/2024 Address:[address] [place], [place] [address]EULOGIO Kurt SUERO [phone] Pcp:Jose Montgomery MD Subjective: * Chief Complaints: [...] of provider rendering services: { ...} [address] [facility] [address] L ocation of patient: kylah katarzynamarie listed [...] They have no children. 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 * Medications: T akingClobetasol Propionate 0.05 % [...] 08/17/2024 Generated for Dasia beard/Jonelle/Fanismitting on: 1 07:44 AM EDT History and Physical Notes * HPI (History of Present Illness) Category Sub-Category Detail Notes Telehealth Location of [facility] rendering services:: {...} [address] [place] [address] Location of patient:: address listed in demographics [...]
--- OUTSIDE RECORDS SUMMARY | 2025-02-15 05:00 | XMS_ITS ---
Author Organization Anderson Lyn III, MD Address [address] [place] [address] Care Team Providers Care In Flight Crew Member Name Role Phone Jose Montgomery MD Primary [...] End Date Status Vitamin D3 250 MCG (21710 UT) 1 capsule Orally Once a day [...] Date Provider Diagnosis Anderson Lyn III, MD [address] [place] [address] [place] [address] 02/15/2025 Anderson Lyn Leukopenia D72.819 ; Discoid [...] Stop Date Notes Vitamin D3 250 MCG (36960 UT) 1 capsule Orally Once a day [...] Provider Name:Anderson Lyn , 11/29/2025 09:00:00 AM, [address] [place] [address] [place], [address], Progress Notes * Zhanna CARTERDOB:1965 (59 yo F)Acc No.[id number]:02/15/2025 Progress Notes Patient: Zhanna BRO Provider: Letitia Lyn MD :1965 A ge:59 Y S ex:Female Date:02/15/2025 Address:[address] [place] [address] N[place] [id number] Pcp:Jose Montgomery MD Subjective: * Chief Complaints: * C hronic leukopeniaDiscoid lupusPossible mixed connective tissue disorderSeasonal allergiesHypertension * HPI: C OVID-19 Screening: She returns to [facility] office for a periodic scheduled visit [...] no occupational exposures. She is not a Episcopalian. * Medications: T akingVitamin D3 250 MCG (36859 UT) Capsule 1 capsule Orally Once a [...] with the patientTaking Vitamin D3 250 MCG (22574 UT) Capsule 1 capsule Orally Once a [...] MD Date: 0 02/15/2025 Generated for Dasia beard/Jonelle/eTransmitting on: 1 07:43 AM EDT History and Physical Notes * [...]
--- NOTE | ~2025-09-10 | MM_ITS ---
EXAMINATION: MM SCREENING DIGITAL BREAST TOMOSYNTHESIS, BILATERAL CLINICAL INFORMATION: Screening. Asymptomatic. COMPARISON: Mammography: Comparison is made with available priors TECHNIQUE: Digital breast mammography with tomosynthesis is performed in both the craniocaudal and mediolateral oblique views along with computer-aided detection (CAD). FINDINGS: The breasts are extremely dense, which lowers the sensitivity of mammography. There are no significant masses, abnormal calcifications, or other abnormalities. MM/MM tomosynthesis screening BI IMPRESSION: No mammographic evidence of malignancy. ASSESSMENT: BI-RADS Category 1: Negative RECOMMENDATION: Routine annual mammography screening. 1 year F/U This examination should not preclude the clinical evaluation of a suspicious palpable abnormality. This patient's information was entered into a reminder system with a target due date for their next mammogram. Electronically signed by: Evelyne Phan DO 09/11/2025 12:40 PM EDT
--- OUTSIDE RECORDS SUMMARY | 2025-09-10 07:43 | XMS_ITS | Patient Health Record ---
Author Organization Anderson Lyn III, MD Address [address] [place] [address] DR ADAN Erich [place] [address] Care Team Providers Care Health Data Administrator Name Role Phone Jose Montgomery MD Primary Care Provider Berta Dr. Anderson Gil III Unavailable [phone] Allergies Allergen (clinical drug ingredient) Drug/Non Drug Allergy documented on EMR Reaction Allergy Type Onset Date Status No Known Drug Allergy Unknown Drug Allergy Active Reason For Referral No Information Medications Medication SIG (Take, Route, Frequency, Duration) Notes Start Date End Date Status Vitamin D3 250 MCG (63267 UT) 1 capsule Orally Once a day [...] Problem Status W/U Status Risk Notes Problem 4452672 Former smoker (Z87.891) Active confirmed We formulated a plan to prevent relapse and times of stress and illness. Problem 836288032492523 Right hip pain (M25.551) Active confirmed was serge disc Problem 55152529 Essential hypertension (I10) Active confirmed Her blood pressure is currently in the normal range and no change in her regimen as needed. Problem 67190192 Leukopenia (D72.819) Active confirmed Her total white blood cell count is 3000.. The differential is remarkable for a slightly diminished number of neutrophils and a slightly diminished number of lymphocytes.. She has had no infections. Surveillance was continued.An ultrasound of the spleen was noted to see if it has increased in size causing a further decline in the white blood cell Problem 286037048 History of iron deficiency anemia (Z86.2) Active confirmed There is currently no sign of iron deficiency and she does not require iron supplementatio n. 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 Her total protein is elevated to 9.3 but there are no monoclonal antibodies found on serum protein electrophoresi s. The antibodies against single-strande d DNA are positive. Problem 47983844 Alopecia areata (L63.9) Active confirmed He says this has resolved. Problem 502371241 Seasonal allergies (J30.2) Active confirmed She has [...] Date Provider Diagnosis Anderson Lyn III, MD [address] [place] [address] DR MOREL, [place] [address] 02/15/2025 Anderson Lyn Leukopenia D72.819 ; Discoid [...] Provider Name:Anderson Lyn , 11/29/2025 09:00:00 AM, [address] [place] [address] DR, [place] [address], [place], [address], Insurance Providers Payer Name Payer Address Payer Phone Subscriber Number Group Number Insured Name Patient Relationship to Insured Coverage Start Date Coverage End Date [address] [place] [phone] [id number] Zhanna Carter Self - patient is the insured Medical (General) History Medical History History ICD Code Discoid Lupus Alopecia areata 704.00 essential hypertension seasonal allergies benign fibroma breast iron deficiency anemia 2010 corrective lenses chronic leukopenia Surgical History Surgery Date(Month/Year) ultrasound-guided biopsy left breast, 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 Lee 09/2010
--- OUTSIDE RECORDS SUMMARY | 2025-09-10 07:45 | XMS_ITS | Patient Health Record ---
Author Organization [facility] Address [address] [place] [address] Care Team Providers Care Interventional Radiology Technologist Name Role Phone Valentina (RETIRED) Jose DAVIS Primary Care Provide r Anderson Alonso Unavailable [phone] Allergies No Known Allergies Reason For Referral [...] Status Risk Notes Problem Colon cancer screening (983026462) Colon cancer screening (Z12.11) Active confirmed Problem Diverticular disease of colon (554510020) Diverticulosis of large intestine without perforation or abscess without bleeding (K57.30) Active confirmed Problem Constipation (22644278) Constipation, unspecified constipation type (K59.00) Active confirmed Plan Of Treatment Pending Test Test Name Order Date Pathology 03/15/2023 Future Test Test Name Order Date COLONOSCOPY 12/22/2022 Insurance Providers Payer Name Payer Address Payer Phone Subscriber Number Group Number Insured Name Patient Relationship to Insured Coverage Start Date Coverage End Date [facility] [address] [facility] [place] [phone] [id number] AMNA SALINAS Self - patient is the insured Medical (General) History Medical History History ICD Code Hypertension Denies [place],DM,CVA,Lung disease,renal dise ase Negative colonoscopy [place] [address] Guy leach Surgical History Surgery Date(Month/Year)
== END 2025-09-10 07:41 | disposition home or self-care (01) ==
LOC: HO.MAMMO 07:40
PROVIDERS: PCP Physician Assistant Medical; Visit Provider Physician Assistant Medical
DX: Z12.31 Encounter for screening mammogram for malignant neoplasm of breast (principal)
CPT/HCPCS: 77063; 77067

== ENCOUNTER → 2025-09-10 07:45 | Outpatient (BNV) | payer OTHER, SELFPAY | PROVIDERS: PCP Physician Assistant Medical; Visit Provider Internal Medicine | DX: Z12.31 Encounter for screening mammogram for malignant neoplasm of breast (principal) | CPT/HCPCS: 77063; 77067 ==

== ENCOUNTER 2025-10-15 08:27 | Outpatient (AMB) | payer OTHER, SELFPAY ==
--- OUTSIDE RECORDS SUMMARY | 2024-07-06 04:30 | XMS_ITS ---
Author Organization Anderson Lyn III, MD Address [address] [place] [address] Care Team Providers Care Field Manager Name Role Phone Jose Montgomery MD Primary Care Provider Dr. Anderson Mcnally III Unavailable Allergies Allergen (clinical drug ingredient) Drug/Non Drug Allergy documented on EMR Reaction Allergy Type Onset Date Status No Known Drug Allergy Unknown Drug Allergy Active REASON FOR VISIT Leukocytopenia, Discoid lupus, Allergies, Iron deficiency, Hypertension Medications Medication SIG (Take, Route, Frequency, Duration) [...] Additional Findings: Tobacco Non-User Ex-cigaret te smoker Vital Signs Temperature 98.8 degrees Fahrenheit 07/06/20 24 Blood pressure systolic 139 mm Hg 07/06/20 24 Blood pressure diastolic 87 mm Hg 024 Heart Rate 102 /min 07/06/2024 Height 68 in 07/06/2024 Weight 136 lbs 07/06/2024 BMI 20.68 kg/m2 07/06/2024 Encounters Encounter Location Date Provider Diagnosis Anderson Lyn III, MD [address] [place] [address] [address] [place], [place] [address] 07/06/2024 Anderson Lyn Leukopenia D72.819 ; Discoid lupus L93.0 ; Essential hypertension I10 ; History of iron deficiency anemia Z86.2 and Former smoker Z87.891 Assessments Encounter Date Diagnosis (ICD Code) Assessment Notes Treatment Notes Treatment Clinical Notes 07/06/2024 Leukopenia (ICD-10 - D72.819) Her total white blood cell count is again 3800. The differential is remarkable for a normal number of neutrophils and a diminished number of lymphocytes.. She has had no infections. Surveillance was continued.An ultrasound of the spleen was noted to see if it has increased in size causing a further decline in the white blood cell 07/06/2024 Discoid lupus (ICD-10 - L93.0) She is being evaluated by rheumatology. Her total protein is elevated to 9.3 but there are no monoclonal antibodies found on serum protein electrophoresis. The antibodies against single-stranded DNA are positive. 07/06/2024 Essential hypertension (ICD-10 - I10) The blood pressure is slightly high at 139/87 and this problem is well controlled. No additional changes are necessary. 07/06/2024 History of iron deficiency anemia (ICD-10 - Z86.2) There is currently no sign of iron deficiency and she does not require iron supplementation. 07/06/2024 Former smoker (ICD-10 - Z87.891) We formulated [...] Order Date PROFILE, RANDOM (COMPREHENSIVE METABOLIC ) 07/06/2024 CBC WITH AUTO DIFF 07/06/2024 Calcium 07/06/2024 Parathyroid Hormone Intact 07/06/2024 Next Appt Details Follow Up: 6 Weeks, 6 Months , Reason: Telehealth, OV Provider Name:Anderson Lyn , 11/29/2025 09:00:00 AM, [address] [place] [address] [address], [place], [address], Progress Notes * Zhanna CARTERDOB:1965 (59 yo F)Acc No.[id number]:07/06/2024 Progress Notes Patient: Zhanna Garay Provider: Letitia Lyn MD :1965 A ge:59 Y S ex:Female Date:07/06/2024 Address:[address] [place] [address] [address] SUERO [id number] Pcp:Jose Montgomery MD Subjective: * Chief Complaints: * L eukocytopeniaDiscoid lupusAllergiesIron deficiencyHypertension * HPI: C OVID-19 Screening: She returns for surveillance of her leukopenia. She has had no infections. She is now under the care of a wheel cleaner. Comprehensive blood work has been done. On June 26, 2024 the white blood cell count was 3800 hematocrit 45.1 platelets 303 sedimentation rate 30 total protein 9.3 glucose 90 none the 111 creatinine 0.7 IgG 1950 IgA 332 IgM1 17 protein electrophoresis no monoclonal antibodies, single stranded DNA antibodies positive. Double-stranded antibodies negative, Absolute neutrophils 3100, absolute lymphocytes 500. Questions H ave you experienced fever, chills, cough, sore throat, shortness of breath, difficulty breathing, muscle aches, loss of taste or smell? N o H ave you been exposed to the virus within the last 10 days? N o H ave you travelled internationally in the last 10 days? N o H ave you been exposed to COVID-19 in the past? N o * ROS: G eneral/Constitutional: pain o nly [...] have been noted. G enitourinary: Frequent urination a t night. M usculoskeletal: Muscle aches d enies. P ainful joints d enies. S ciatica d enies. W eakness d enies. S [...] They have no children. 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 She is not a Sikh. * Medications: T akingClobetasol Propionate 0.05 % Gel APPLY TO AFFECTED AREAS ON SCALP EVERY MORNING AND EVENING NEEDED FOR ITCHINESS AND FLARES External Betamethasone Dipropionate 0.05 % Cream 1 application to affected area Externally Once a dayamLODIPine Besylate 5 MG Tablet 1 tablet Orally Once a dayMedication List reviewed and reconciled with the patientTaking Clobetasol Propionate 0.05 % Gel APPLY TO AFFECTED AREAS ON SCALP EVERY MORNING AND EVENING NEEDED FOR ITCHINESS AND FLARES External Taking Betamethasone Dipropionate 0.05 % Cream 1 application to affected area Externally Once a dayTaking amLODIPine Besylate 5 MG Tablet 1 tablet Orally Once a dayMedication List reviewed and reconciled with the patient * Allergies: N o Known Drug Allergyno[Allergies Verified] Objective: * Vitals: H t: 68, Wt:136, BMI:20.68, BP:139/87, HR:102, Temp:98.8. * Examination: G eneral Examination: GENERAL APPEARANCE: [...] total white blood cell count is again 3800. The differential is remarkable for a normal number of neutrophils and a diminished number of lymphocytes.. She has had no infections. Surveillance was continued.An ultrasound of the spleen was noted to see if it has increased in size causing a further decline in the white blood cell 2 . D iscoid lupus - L93.0, She is being evaluated by rheumatology. Her total protein is elevated to 9.3 but there are no monoclonal antibodies found on serum protein electrophoresis. The antibodies against single-stranded DNA are positive. 3 . E ssential hypertension - I10, The blood pressure is slightly high at 139/87 and this problem is well controlled. No additional changes are necessary. 4 . H istory of iron deficiency anemia - Z86.2, There is currently no sign of iron deficiency and she does not require iron supplementation. 5 . F ormer smoker - Z87.891, We formulated a plan to prevent relapse and times of stress and illness. Plan: * Treatment: 2. D iscoid lupus L AB: Calcium L AB: Parathyroid Hormone Intact 3. O thers Continue amLODIPine Besylate Tablet, 2.5 MG, 1 tablet, Orally, Once a day. * Procedure Codes: * Preventive Medicine: Counseling: S moking/Tobacco Use Patient counseled on the dangers of tobacco use and urged to quit. 0 07/06/2024 * Follow Up: 6 Weeks, 6 Months (Reason: Telehealth, OV) * Images: * Sign off status: Completed true * Provider: Letitia Lyn MD Date: 0 07/06/2024 Generated for Dasia beard/Jonelle/eTransmitting on: 1 12/15/2024 08:34 AM EST History and Physical Notes * HPI (History of Present Illness) Category Sub-Category Detail Notes COVID-19 Screening Questions Have you had any new onset fever, chills, cough, congestion, sore throat, shortness of breath, muscle aches?: No Have you been exposed to the virus withi n the last 10 days?: No Have you travelled internationally in [facility] last 10 days?: No Have you been exposed to COVID-19 in the past?: No Examination Category Sub-Category Detail Notes General Examination [...]
--- OUTSIDE RECORDS SUMMARY | 2024-08-17 04:30 | XMS_ITS ---
Author Organization Anderson Lyn III, MD Address [address] [place] [address] [place] [address] Care Team Providers Care Charge Operator Name Role Phone Jose Montgomery MD Primary Care Provider Dr. Anderson Mcnally III Unavailable [phone] Allergies Allergen (clinical drug ingredient) Drug/Non Drug [...] Date Provider Diagnosis Anderson Lyn III, MD [address] [place] [address] [place] [address] 08/17/2024 Anderson Lyn Leukopenia D72.819 ; Discoid [...] Provider Name:Anderson Lyn , 11/29/2025 09:00:00 AM, [address] [place] [address] , [place] [address], [place], [address], Progress Notes * Zhanna CARTERDOB:1965 (59 yo F)Acc No.[id number]:08/17/2024 Patient: Zhanna BRO Provider: Letitia Lyn MD :1965 A ge:59 Y S ex:Female Date:08/17/2024 Address:[address] [place], [place] [address] Kurt SUERO [id number] Pcp:Jose Montgomery MD Subjective: * Chief Complaints: [...] of provider rendering services: { ...} [address] [facility] [address] L ocation of patient: kylah katarzynamarie listed [...] They have no children. 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 * Medications: T akingClobetasol Propionate 0.05 % [...] 0 08/17/2024 Generated for Dasia beard/Jonelle/Fanismitting on: 12/15/2024 08:34 AM EST History and Physical Notes * HPI (History of Present Illness) Category Sub-Category Detail Notes Telehealth Location of [facility] rendering services:: {...} [address] [place] [address] Location of patient:: address listed in demographics [...]
--- OUTSIDE RECORDS SUMMARY | 2025-02-15 04:00 | XMS_ITS ---
Author Organization Anderson Lyn III, MD Address [address] [place] [address] Care Team Providers Care Fire Watchman Name Role Phone Jose Montgomery MD Primary [...] End Date Status Vitamin D3 250 MCG (77712 UT) 1 capsule Orally Once a day [...] Date Provider Diagnosis Anderson Lyn III, MD [address] [place] [address] [place] [address] 02/15/2025 Anderson Lyn Leukopenia D72.819 ; Discoid [...] Stop Date Notes Vitamin D3 250 MCG (05199 UT) 1 capsule Orally Once a day [...] Provider Name:Anderson Lyn , 11/29/2025 09:00:00 AM, [address] [place] [address] [place], [address], Progress Notes * Zhanna CARTERDOB:1965 (59 yo F)Acc No.[id number]:02/15/2025 Progress Notes Patient: Zhanna BRO Provider: Letitia Lyn MD :1965 A ge:59 Y S ex:Female Date:02/15/2025 Address:[address] [place] [address] N[place] [id number] Pcp:Jose Montgomery MD Subjective: * Chief Complaints: * C hronic leukopeniaDiscoid lupusPossible mixed connective tissue disorderSeasonal allergiesHypertension * HPI: C OVID-19 Screening: She returns to [facility] office for a periodic scheduled visit to [...] no occupational exposures. She is not a Moravian. * Medications: T akingVitamin D3 250 MCG (48233 UT) Capsule 1 capsule Orally Once a [...] with the patientTaking Vitamin D3 250 MCG (30104 UT) Capsule 1 capsule Orally Once a [...] 0 02/15/2025 Generated for Dasia beard/Jonelle/eTkavinsmitting on: 12/15/2024 08:34 AM EST History and [...]
--- NOTE | 2025-10-15 08:28 | A.OFFVIS_ITS ---
Intake Visit Reasons: bilateral Plantar Warts Intake Note: Zhanna is a 60 year old female who presents today for a follow up of her bilateral cavus deformity/poroleratosis. At her last visit patient had a debridement/avulsion and was educated on proper shoes to wear. Patient reports she noticed that her bunions came back. Allergies hydroxychloroquine Allergy (Mild, Verified 10/15/25 08:28) Hives sulfamethoxazole Allergy (Mild, Verified 10/15/25 08:28) Rash HPI HPI bilateral Plantar Warts: Details: 60-year-old female no pertinent past medical history presents for follow up evaluation of bilateral foot pain. She states the lesions returned. History: She states she saw another provider told her that she has warts on the bottom her feet. She first noted these lesions proximally 3-4 months ago. Denies any history of injuries. She states that she likes to walk a lot and believes thats why she is developing these lesions. She has tried different shoe wears and has bought Dr. Sosa's inserts. [facility] Medical History (Updated 10/15/25 @ 08:51 by Dayron Holliday DPM) Bilateral plantar wart Plaquenil causing adverse effect in therapeutic use HTN (hypertension) Surgical History History of colonoscopy (~03/15/23) Family History (Updated 08/16/25 @ 09:01 by Nilam Golden MA) Father Cancer of lung Brother Cancer of lung Brother Cancer of lung Mother No problems noted. 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 no pinpoint bleeding. no underlying ulcers. Neuro: protective sensation grossly intact to bilateral lower extremities. MSK: high arch foot type, semi-rigid. mild tenderness on palpation of the lesions. No pain on radial pressure. Office Procedures AMB Wart Destruction Podiatry Details of Procedure: Procedure: Wart destruction Location: 1 lesion bilateral feet Anesthesia: N/A Description: The affected area was cleansed with an antiseptic solution. Using a sterile #15 blade, the hyperkeratotic tissue was radially debrided from the foot. Next, salicylic acid was applied using an applicator to the wart, and occluded using a band-aid. Tolerance: Patient tolerated procedure well, no immediate complications. 39593 - Wart Destruction (<15) Procedure code (CPT) selection complete Office Meds salicylic acid 27.5 % topical film-forming liquid Performing Provider: Dayron Holliday DPM Performing Location: [facility] Administered by: Dayron Holliday DPM on 10/15/25 22:12 Dose Route Admin Location Dispensed Lot Number Expiration Date [facility] [employer] 1 appl topical 10 mL [id number] [employer] PHAR MACE Assessment & Plan Assessment & Plan (1) Bilateral plantar wart: Code(s): B07.0 - Plantar wart Category: Medical Plan: * Applied salicylic acid bilateral feet and dressed with occlusive dressing. (2) Acquired porokeratosis: Code(s): L98.8 - Other specified disorders of the skin and subcutaneous tissue Category: Medical Plan: * Differential diagnosis includes IPK lesions, verruca lesions, and underlying bone spurs. * Debrided bilateral feet with #15 blade. * Rx Urea cream 40%. D/c 20%. * Follow up in 4 weeks (3) Metatarsalgia of both feet: Code(s): M77.41 - Metatarsalgia, right foot; M77.42 - Metatarsalgia, left foot Category: Medical Plan: * Rx bilateral feet x-rays (4) Cavus deformity of both feet: Code(s): Q66.71 - Congenital pes cavus, right foot; Q66.72 - Congenital pes cavus, left foot Category: Medical Plan: * Educated the patient on his foot type. Explained that his high arch foot type (Cavus feet) can lead to altered weight distribution, resulting in increased pressure on the heel and forefoot. Patients may experience symptoms such as pain, callus formation, tendinitis, instability, lateral ankle sprains, and, in some cases, development of digital deformities (e.g., claw toes or hammertoes). Discussed the importance of shoe type with heel and forefoot padding and support. Orders: Orders AMB Wart Destruction Podiatry Today B07.0 - Plantar wart, L98.8 - Other specified disorders of the skin and subcutaneous tissue XR Foot Drew 3V Today M77.41 - Metatarsalgia, right foot, M77.42 - Metatarsalgia, left foot Medications: New urea 40% Apply to corns on the bottom of both feet. 1 appl topical BID 28 grams 3RF plantar corn L98.8 - Other specified disorders of the skin and subcutaneous tissue Coding Level of Care Code Est Pt Level 3 (05245) Diagnoses Bilateral plantar wart B07.0 Acquired porokeratosis L98.8 Metatarsalgia of both feet M77.41; M77.42 Cavus deformity of both feet Q66.71; Q66.72 CPT Codes Destruction of Wart - CPT: 96718 - Wart Destruction (<15) (0887643878) Time Spent (min) 25
--- OUTSIDE RECORDS SUMMARY | 2025-10-15 08:34 | XMS_ITS | Patient Health Record ---
Author Organization Anderson Lyn III, MD Address [address] [place] [address] DR ADAN Erich [place] [address] Care Team Providers Care Director Special Education Name Role Phone Jose Montgomery MD Primary Care Provider Berta Dr. Anderson Gil III Unavailable [phone] Allergies Allergen (clinical drug ingredient) Drug/Non Drug Allergy documented on EMR Reaction Allergy Type Onset Date Status No Known Drug Allergy Unknown Drug Allergy Active Reason For Referral No Information Medications Medication SIG (Take, Route, Frequency, Duration) Notes Start Date End Date Status Vitamin D3 250 MCG (27937 UT) 1 capsule Orally Once a day [...] Problem Status W/U Status Risk Notes Problem 6123615 Former smoker (Z87.891) Active confirmed We formulated a plan to prevent relapse and times of stress and illness. Problem 030270121172878 Right hip pain (M25.551) Active confirmed was serge disc Problem 61835190 Essential hypertension (I10) Active confirmed Her blood pressure is currently in the normal range and no change in her regimen as needed. Problem 76348705 Leukopenia (D72.819) Active confirmed Her total white blood cell count is 3000.. The differential is remarkable for a slightly diminished number of neutrophils and a slightly diminished number of lymphocytes.. She has had no infections. Surveillance was continued.An ultrasound of the spleen was noted to see if it has increased in size causing a further decline in the white blood cell Problem 221864617 History of iron deficiency anemia (Z86.2) Active confirmed There is currently no sign of iron deficiency and she does not require iron supplementatio n. 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 Her total protein is elevated to 9.3 but there are no monoclonal antibodies found on serum protein electrophoresi s. The antibodies against single-strande d DNA are positive. Problem 12234170 Alopecia areata (L63.9) Active confirmed He says this has resolved. Problem 764655161 Seasonal allergies (J30.2) Active confirmed She has [...] Date Provider Diagnosis Anderson Lyn III, MD [address] [place] [address] DR MOREL, [place] [address] 02/15/2025 Anderson Lyn Leukopenia D72.819 ; Discoid [...] Provider Name:Anderson Lyn , 11/29/2025 09:00:00 AM, [address] [place] [address] DR, [place] [address], [place], [address], Insurance Providers Payer Name Payer Address Payer Phone Subscriber Number Group Number Insured Name Patient Relationship to Insured Coverage Start Date Coverage End Date [address] [place] [place] [phone] [id number] Zhanna Carter Self - patient is the insured Medical (General) History Medical History History ICD Code Discoid Lupus Alopecia areata 704.00 essential hypertension seasonal allergies benign fibroma breast iron deficiency anemia 2010 corrective lenses chronic leukopenia Surgical History Surgery Date(Month/Year) ultrasound-guided biopsy left breast, 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 Lee 09/2010
--- OUTSIDE RECORDS SUMMARY | 2025-10-15 08:35 | XMS_ITS | Patient Health Record ---
Author Organization [facility] Address [address] [place] [address] Care Team Providers Care Glue Plant Operator Name Role Phone Valentina (RETIRED) Jose DAVIS Primary Care Provide r Anderson Alonso Unavailable [phone] Allergies No Known Allergies Reason For Referral No Information Medications Medication SIG (Take, Route, Frequency, Duration) Notes Start Date End Date Status Clobetasol Propionate Active Betamethasone Dipropionate 0.05 % Cream APPLY TWICE DAILY NEEDED FOR FACE AND BODY External; Duration: 30 Active amLODIPine Besylate 2.5 MG Tablet TAKE 1 TABLET BY MOUTH EVERY DAY Oral; Duration: 90 Active Immunizations Vaccine Route Administration Date Status Comme nts Influenza Unknown 12/22/2022 Refused Social History Tobacco Use: Social History Observation Description Date Details (start date - stop date) Never Smoker NA - NA Social History Drugs/Alcohol: Social Info Question Answer Notes Alcohol Screen Did you have a drink containing alcohol in the past year? Yes How often did you have a drink containing alcohol in the past year? Monthly or less (1 point) How many drinks did you have on a typical day when you were drinking in the past year? 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 [employer] Notes: Nonsmoker, occasional glass of wine Problems Problem Type SNOMED Code ICD Code Onset Dates Problem Status W/U Status Risk Notes Problem Colon cancer screening (005142020) Colon cancer screening (Z12.11) Active confirmed Problem Diverticular disease of colon (184853959) Diverticulosis of large intestine without perforation or abscess without bleeding (K57.30) Active confirmed Problem Constipation (83124710) Constipation, unspecified constipation type (K59.00) Active confirmed Plan Of Treatment Pending Test Test Name Order Date Pathology 03/15/2023 Future Test Test Name Order Date COLONOSCOPY 12/22/2022 Insurance Providers Payer Name Payer Address Payer Phone Subscriber Number Group Number Insured Name Patient Relationship to Insured Coverage Start Date Coverage End Date [facility] [address] [facility] [place] [address] [id number] AMNA SALINAS Self - patient is the insured Medical (General) History Medical History History ICD Code Hypertension Denies [place],DM,CVA,Lung disease,renal dise ase Negative colonoscopy [place] [address] Guy leach Surgical History Surgery Date(Month/Year)
== END 2025-10-15 08:50 | disposition home or self-care (01) ==
LOC: HO.HPODS 08:28
PROVIDERS: PCP Physician Assistant Medical; Visit Provider Student in an Organized Health Care Education/Training Program
DX: B07.0 Plantar wart (principal); L98.8 Other specified disorders of the skin and subcutaneous tissue; M77.41 Metatarsalgia, right foot; M77.42 Metatarsalgia, left foot; Q66.71 Congenital pes cavus, right foot; Q66.72 Congenital pes cavus, left foot
CPT/HCPCS: 17110; 99213

== ENCOUNTER 2025-10-19 08:05 | Outpatient (REF) | payer OTHER, SELFPAY ==
--- OUTSIDE RECORDS SUMMARY | 2024-07-06 04:30 | XMS_ITS ---
Author Organization Anderson Lyn III, MD Address [address] [place] [address] Care Team Providers Care Product Demonstrator Name Role Phone Jose Montgomery MD Primary [...] Date Provider Diagnosis Anderson Lyn III, MD [address] [place] [address] [address] [place], [place] [address] 07/06/2024 Anderson Lyn Leukopenia D72.819 ; Discoid [...] Provider Name:Anderson Lyn , 11/29/2025 09:00:00 AM, [address] [place] [address] [address], [place], [address], Progress Notes * Zhanna CARTERDOB:1965 (59 yo F)Acc No.[id number]:07/06/2024 Progress Notes Patient: Zhanna Garay Provider: Letitia Lyn MD :1965 A ge:59 Y S ex:Female Date:07/06/2024 Address:[address] [place] [address] [address] [place] [id number] Pcp:Jose Montgomery MD Subjective: * Chief Complaints: * L eukocytopeniaDiscoid lupusAllergiesIron deficiencyHypertension * HPI: C OVID-19 Screening: She returns for surveillance of her leukopenia. She has had no infections. She is now under the care of a administrative aide. Comprehensive blood work has been done. On [...] They have no children. 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 She is not a Amish. * Medications: T akingClobetasol Propionate 0.05 % [...] 07/06/2024 Generated for Dasia beard/Jonelle/eTransmitting on: 1 12/19/2024 08:10 AM EST History and Physical Notes * HPI (History of Present Illness) Category Sub-Category Detail Notes COVID-19 Screening Questions Have you had any new onset fever, chills, cough, congestion, sore throat, shortness of breath, muscle aches?: No Have you been exposed to the virus withi n the last 10 days?: No Have you travelled internationally in [facility] last 10 days?: No Have you [...]
--- OUTSIDE RECORDS SUMMARY | 2024-08-17 04:30 | XMS_ITS ---
Author Organization Anderson Lyn III, MD Address [address] [place] [address] [place] [address] Care Team Providers Care Touring Production Manager Name Role Phone Jose Montgomery MD Primary Care Provider Dr. Anderson Mcnally III Unavailable Allergies Allergen (clinical drug ingredient) Drug/Non Drug Allergy documented on EMR Reaction Allergy Type Onset Date Status No Known Drug Allergy Unknown Drug Allergy Active REASON FOR VISIT Leukopenia, Discoid lupus, Seasonal allergies, Hypertension, Iron deficiency anemia Medications Medication SIG (Take, Route, Frequency, Duration) [...] Additional Findings: Tobacco Non-User Ex-cigaret te smoker Encounters Encounter Location Date Provider Diagnosis Anderson Lyn III, MD [address] [place] [address] [place] [address] 08/17/2024 Anderson Lyn Leukopenia D72.819 ; Discoid lupus L93.0 ; History of iron deficiency anemia Z86.2 ; Essential hypertension I10 ; Seasonal allergies J30.2 and Former smoker Z87.891 Assessments Encounter Date Diagnosis (ICD Code) Assessment Notes Treatment Notes Treatment Clinical Notes 08/17/2024 Leukopenia (ICD-10 - D72.819) Her total white blood cell count is again 3800. The differential is remarkable for a normal number of neutrophils and a diminished number of lymphocytes.. She has had no infections. 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 Her total protein is elevated to 9.3 but there are no monoclonal antibodies found on serum protein electrophoresis. The antibodies against single-stranded DNA are positive. 08/17/2024 History of iron deficiency anemia (ICD-10 - Z86.2) There is currently no sign of iron deficiency and she does not require iron supplementation. 08/17/2024 Essential hypertension (ICD-10 - I10) Return to the office on her next visit to have her blood pressure measured. 08/17/2024 Seasonal allergies (ICD-10 - J30.2) She has had no rhinitis yet this year. She is preparing for pollen season. 08/17/2024 Former smoker (ICD-10 - Z87.891) We formulated [...] MG 1 tablet Orally Once a day Next Appt Details Follow Up: As Scheduled, Adeline son: OV Provider Name:Anderson Lyn , 11/29/2025 09:00:00 AM, [address] [place] [address] , [place] [address], [place], [address], Progress Notes * Zhanna CARTERDOB:1965 (59 yo F)Acc No.[id number]:08/17/2024 Patient: Zhanna BRO Provider: Letitia Lyn MD :1965 A ge:59 Y S ex:Female Date:08/17/2024 Address:[address] [place], [place] [address] Kurt SUERO [id number] Pcp:Jose Montgomery MD Subjective: * Chief Complaints: * L eukopeniaDiscoid lupusSeasonal allergiesHypertensionIron deficiency anemia * HPI: * : She returns to the office for management of her anemia and iron deficiency and leukopenia. She is known to have discoid lupus. Since her last visit she has had no major infections and has been well. Her examination today was unremarkable. Her blood work was reviewed with her in detail.The calcium and parathyroid hormone levels were normal. Blood work done July 15, 2020 the for showed glucose 99 BUN 11 creatinine 0.7 white count 3.8 with 81% neutrophils hematocrit 45.1 platelets 303,000. Telehealth L ocation of provider rendering services: { ...} [address] [facility] [address] L ocation of patient: kylah katarzynamarie listed in demographics for today's visit P atient identification confirmed using: SARIAH Johnson ame T elehealth method: T elephone only. Patient not visible to care provider. C onsent: P atient verbally consented to treatment, Patient verbally consented to billing insurance company, Patient informed of any privacy concerns related to method of visit T otal time spent with patient (mins) 1 5 * ROS: G eneral/Constitutional: pain o nly normal aches and pains. C hills d enies.?Fatigue a dmits. F ever d enies. E NT: Decreased hearing d enies. R espiratory: Cough d enies. C ardiovascular: Chest pain with exertion d enies. D yspnea on exertion?denies. S hortness of breath d enies. G astrointestinal: Constipation d enies. D ecreased appetite d enies.?Diarrhea d enies. H eartburn d enies. N ausea d enies. R ectal bleeding?denies. V omiting d enies. H ematology: bruising d enies. p etechiae d enies. S wollen glands n one have been noted. G enitourinary: Frequent urination a small amount. M usculoskeletal: Muscle aches d enies. P [...] They have no children. 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 She is not a Hoahaoism. * Medications: T akingClobetasol Propionate 0.05 % Gel APPLY TO AFFECTED AREAS ON SCALP EVERY MORNING AND EVENING NEEDED FOR ITCHINESS AND FLARES External Betamethasone Dipropionate 0.05 % Cream 1 application to affected area Externally Once a day amLODIPine Besylate 2.5 MG Tablet 1 tablet Orally Once a day Medication List reviewed and reconciled with the patientTaking Clobetasol Propionate 0.05 % Gel APPLY TO AFFECTED AREAS ON SCALP EVERY MORNING AND EVENING NEEDED FOR ITCHINESS AND FLARES External Taking Betamethasone Dipropionate 0.05 % Cream 1 application to affected area Externally Once a day Taking amLODIPine Besylate 2.5 MG Tablet 1 tablet Orally Once a day Medication List reviewed and reconciled with the patient * Allergies: N o Known Drug Allergyno[Allergies Verified] Objective: * Vitals: Assessment: * Assessment: 1. L eukopenia - D72.819 (Primary) N otes :Her total white blood cell count is again 3800. The differential is remarkable for a normal number of neutrophils and a diminished number of lymphocytes.. She has had no infections. Surveillance was continued.An ultrasound of the spleen was noted to see if it has increased in size causing a further decline in the white blood cell 2 . D iscoid lupus - L93.0 N otes :She is being evaluated by rheumatology. Her total protein is elevated to 9.3 but there are no monoclonal antibodies found on serum protein electrophoresis. The antibodies against single-stranded DNA are positive. 3 . H istory of iron deficiency anemia - Z86.2 N otes :There is currently no sign of iron deficiency and she does not require iron supplementation. 4 . E ssential hypertension - I10 N otes :Return to the office on her next visit to have her blood pressure measured. 5 . S easonal allergies - J30.2 N otes :She has had no rhinitis yet this year. She is preparing for pollen season. 6 . F ormer smoker - Z87.891 N otes :We formulated a plan to prevent relapse and times of stress and illness. Plan: * Treatment: 2. O thers Continue amLODIPine Besylate Tablet, 2.5 MG, 1 tablet, Orally, Once a day. * Procedure Codes: * Preventive Medicine: Counseling: S moking/Tobacco Use Patient counseled on the dangers of tobacco use and urged to quit. 0 08/17/2024 * Follow Up: A s Scheduled (Reason: OV) * Images: * Sign off status: Completed true * Provider: Letitia Lyn MD Date: 0 08/17/2024 Generated for Dasia beard/Jonelle/Fanismitting on: 12/19/2024 08:11 AM EST History and Physical Notes * HPI (History of Present Illness) Category Sub-Category Detail Notes Telehealth Location of [facility] rendering services:: {...} [address] [place] [address] Location of patient:: address listed in demographics for today's visit Patient identification confirmed using:: Name, Telehealth method:: Telephone only. Bertha ent not visible to care provider. Consent:: Patient verbally c onsented to treatment, Patient verbally consented to billing insurance company, Patient informed of any privacy concerns related to method of visit Total time spent with patient (mins): 15
--- OUTSIDE RECORDS SUMMARY | 2025-02-15 04:00 | XMS_ITS ---
Author Organization Anderson Lyn III, MD Address [address] [place] [address] Care Team Providers Care Software Project Manager Name Role Phone Jose Montgomery MD [...] End Date Status Vitamin D3 250 MCG (99431 UT) 1 capsule Orally Once a day [...] Date Provider Diagnosis Anderson Lyn III, MD [address] [place] [address] [place] [address] 02/15/2025 Anderson Lyn Leukopenia D72.819 ; Discoid [...] Stop Date Notes Vitamin D3 250 MCG (96231 UT) 1 capsule Orally Once a day [...] Provider Name:Anderson Lyn , 11/29/2025 09:00:00 AM, [address] [place] [address] [place], [address], Progress Notes * Zhanna CARTERDOB:1965 (59 yo F)Acc No.[id number]:02/15/2025 Progress Notes Patient: Zhanna BRO Provider: Letitia Lyn MD :1965 A ge:59 Y S ex:Female Date:02/15/2025 Address:[address] [place] [address] N[place] [id number] Pcp:Jose Montgomery MD Subjective: * Chief Complaints: * C hronic leukopeniaDiscoid lupusPossible mixed connective tissue disorderSeasonal allergiesHypertension * HPI: C OVID-19 Screening: She returns to [facility] office for a periodic scheduled visit [...] no occupational exposures. She is not a Faith. * Medications: T akingVitamin D3 250 MCG (28611 UT) Capsule 1 capsule Orally Once a [...] with the patientTaking Vitamin D3 250 MCG (20302 UT) Capsule 1 capsule Orally Once a [...] 02/15/2025 Generated for Dasia beard/Jonelle/eTkavinsmitting on: 1 12/19/2024 08:10 AM EST History [...]
--- NOTE | ~2025-10-19 | XR_ITS ---
EXAMINATION: X-ray bilateral feet CLINICAL INFORMATION: Metatarsalgia COMPARISON: None TECHNIQUE: Right foot 3 views. Left foot 3 views. FINDINGS: Right foot: Mild first MTP arthritis, joint space loss, small osteophytes. No visible acute fracture, dislocation or suspicious bony lesions. Alignment is anatomic. Tarsometatarsal alignment is maintained. No erosions. No abnormal soft tissue calcification. Left foot: No fracture or dislocation. No suspicious bony lesions. No significant joint space narrowing or marginal osteophytes. No osseous erosion. No abnormal soft tissue calcification. XR/XR Foot Drew 3V IMPRESSION: Right foot: Mild first MTP arthritis Left foot: No acute findings Electronically signed by: Juan Diaz MD 10/19/2025 04:26 PM EST
--- OUTSIDE RECORDS SUMMARY | 2025-10-19 08:11 | XMS_ITS | Patient Health Record ---
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 [employer] Notes: Nonsmoker, occasional glass of wine Problems Problem Type SNOMED Code ICD Code Onset Dates Problem Status W/U Status Risk Notes Problem Colon cancer screening (448483728) Colon cancer screening (Z12.11) Active confirmed Problem Diverticular disease of colon (461862271) Diverticulosis of large intestine without perforation or abscess without bleeding (K57.30) Active confirmed Problem Constipation (09409650) Constipation, unspecified constipation type (K59.00) Active confirmed Plan Of Treatment Pending Test Test Name Order Date Pathology 03/15/2023 Future Test Test Name Order Date COLONOSCOPY 12/22/2022 Insurance Providers Payer Name Payer Address Payer Phone Subscriber Number Group Number Insured Name Patient Relationship to Insured Coverage Start Date Coverage End Date [facility] [address] [place] [phone] [phone] [id number] AMNA SALINAS Self - patient is the insured Medical (General) History Medical History History ICD Code Hypertension Denies [place],DM,CVA,Lung disease,renal dise ase Negative colonoscopy [place] [address] Guy leach Surgical History Surgery Date(Month/Year)
--- OUTSIDE RECORDS SUMMARY | 2025-10-19 08:11 | XMS_ITS | Patient Health Record ---
Author Organization Anderson Lyn III, MD Address [address] [place] [address] DR ADAN Erich ANAHI DEMETRA [id number] Care Team Providers Care Electrician Master Name Role Phone Jose Montgomery MD Primary Care Provider Berta Dr. Anderson Gil III Unavailable Allergies Allergen (clinical drug ingredient) Drug/Non Drug Allergy documented on EMR Reaction Allergy Type Onset Date Status No Known Drug Allergy Unknown Drug Allergy Active Reason For Referral No Information Medications Medication SIG (Take, Route, Frequency, Duration) Notes Start Date End Date Status Vitamin D3 250 MCG (03832 UT) 1 capsule Orally Once a day [...] Problem Status W/U Status Risk Notes Problem 6750869 Former smoker (Z87.891) Active confirmed We formulated a plan to prevent relapse and times of stress and illness. Problem 350631126500015 Right hip pain (M25.551) Active confirmed was serge disc Problem 70783739 Essential hypertension (I10) Active confirmed Her blood pressure is currently in the normal range and no change in her regimen as needed. Problem 09956759 Leukopenia (D72.819) Active confirmed Her total white blood cell count is 3000.. The differential is remarkable for a slightly diminished number of neutrophils and a slightly diminished number of lymphocytes.. She has had no infections. Surveillance was continued.An ultrasound of the spleen was noted to see if it has increased in size causing a further decline in the white blood cell Problem 256843310 History of iron deficiency anemia (Z86.2) Active confirmed There is currently no sign of iron deficiency and she does not require iron supplementatio n. 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 Her total protein is elevated to 9.3 but there are no monoclonal antibodies found on serum protein electrophoresi s. The antibodies against single-strande d DNA are positive. Problem 66393025 Alopecia areata (L63.9) Active confirmed He says this has resolved. Problem 142566071 Seasonal allergies (J30.2) Active confirmed She has [...] Date Provider Diagnosis Anderson Lyn III, MD [address] [place] [address] DR MOREL, DEMETRA [id number] 02/15/2025 Anderson Lyn Leukopenia D72.819 ; Discoid [...] B12 AND FOLATE 01/26/2024 CBC w DIFF 12/04/2021 CBC w DIFF 05/27/2020 CBC w DIFF 07/28/2023 CBC w DIFF 06/04/2022 CBC w DIFF 09/22/2018 CBC w DIFF 03/29/2024 CBC w DIFF 01/06/2018 CBC w DIFF 11/28/2020 CBC w DIFF 02/15/2025 CBC w DIFF 05/29/2021 CBC w DIFF 11/23/2019 CBC w DIFF 12/09/2022 CBC w DIFF 05/12/2018 CBC w DIFF 01/26/2024 CBC w DIFF 01/20/2019 CBC with MANUAL DIFFERENTIAL 05/18/2019 SED RATE (ESR) 09/22/2018 MAMMOGRAM DIGITAL BILATERAL SCREEN 05/12 US ABD 01/26/2024 CBC WITH AUTO DIFF 07/06/2024 Calcium 07/06/2024 Parathyroid Hormone Intact 07/06/2024 Next Appt Details Provider Name:Anderson Lyn , 11/29/2025 09:00:00 AM, [address] [place] [address] DR, [address] [address], [place], [address], Insurance Providers Payer Name Payer Address Payer Phone Subscriber Number Group Number Insured Name Patient Relationship to Insured Coverage Start Date Coverage End Date [address] [place] [phone] [id number] Zhanna Carter Self - patient is the insured Medical (General) History Medical History History ICD Code Discoid Lupus Alopecia areata 704.00 essential hypertension seasonal allergies benign fibroma breast iron deficiency anemia 2010 corrective lenses chronic leukopenia Surgical History Surgery Date(Month/Year) ultrasound-guided biopsy left breast, 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 Lee 09/2010
== END 2025-10-19 08:06 | disposition home or self-care (01) ==
LOC: HO.XRAY 08:05
PROVIDERS: Visit Provider Student in an Organized Health Care Education/Training Program
DX: M77.41 Metatarsalgia, right foot (principal); M77.42 Metatarsalgia, left foot
CPT/HCPCS: 73630

== ENCOUNTER → 2025-10-19 08:12 | Outpatient (BNV) | payer OTHER, SELFPAY | PROVIDERS: Visit Provider Radiology Diagnostic Ultrasound | DX: M77.41 Metatarsalgia, right foot (principal); M19.071 Primary osteoarthritis, right ankle and foot | CPT/HCPCS: 73630 ==

== ENCOUNTER 2025-11-20 07:15 | Outpatient (REF) | payer OTHER, SELFPAY ==
--- OUTSIDE RECORDS SUMMARY | 2024-07-06 04:30 | XMS_ITS ---
Author Organization Anderson Lyn III, MD Address [address] [place] [address] Care Team Providers Care Bakery Deliverer Name Role Phone Jose Montgomery MD Primary [...] Date Provider Diagnosis Anderson Lyn III, MD [address] [place] [address] [address] [place], [place] [address] 07/06/2024 Anderson Lyn Leukopenia D72.819 ; Discoid [...] Provider Name:Anderson Lyn , 11/29/2025 09:00:00 AM, [address] [place] [address] [address], [place], [address], Progress Notes * Zhanna CARTERDOB:1965 (59 yo F)Acc No.[id number]:07/06/2024 Progress Notes Patient: Zhanna Garay Provider: Letitia Lyn MD :1965 A ge:59 Y S ex:Female Date:07/06/2024 Address:[address] [place] [address] [address] [place] [id number] Pcp:Jose Montgomery MD Subjective: * Chief Complaints: * L eukocytopeniaDiscoid lupusAllergiesIron deficiencyHypertension * HPI: C OVID-19 Screening: She returns for surveillance of her leukopenia. She has had no infections. She is now under the care of a steward/stewardess railroad dining car. Comprehensive blood work has been done. On [...] They have no children. 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 She is not a Christianity. * Medications: T akingClobetasol Propionate 0.05 % [...] 07/06/2024 Generated for Dasia beard/Jonelle/eTransmitting on: 1 08:54 AM EST History and Physical Notes * HPI (History of Present Illness) Category Sub-Category Detail Notes COVID-19 Screening Questions Have you had any new onset fever, chills, cough, congestion, sore throat, shortness of breath, muscle aches?: No Have you been exposed to the virus withi n the last 10 days?: No Have you travelled internationally in [facility] last 10 days?: No Have you [...]
--- OUTSIDE RECORDS SUMMARY | 2024-08-17 04:30 | XMS_ITS ---
Author Organization Anderson Lyn III, MD Address [address] [place] [address] [place] [address] Care Team Providers Care Melter Helper Name Role Phone Jose Montgomery MD Primary [...] Date Provider Diagnosis Anderson Lyn III, MD [address] [place] [address] [place] [address] 08/17/2024 Anderson Lyn Leukopenia D72.819 ; Discoid [...] Provider Name:Anderson Lyn , 11/29/2025 09:00:00 AM, [address] [place] [address] , [place] [address], [place], [address], Progress Notes * Zhanna CARTERDOB:1965 (59 yo F)Acc No.[id number]:08/17/2024 Patient: Zhanna BRO Provider: Letitia Lyn MD :1965 A ge:59 Y S ex:Female Date:08/17/2024 Address:[address] [place], [place] [address] Kurt SUERO [id number] Pcp:Jose Montgomery MD Subjective: * Chief Complaints: [...] of provider rendering services: { ...} [address] [facility] [address] L ocation of patient: kylah katarzynamarie listed [...] They have no children. 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 * Medications: T akingClobetasol Propionate 0.05 % [...] 0 08/17/2024 Generated for Dasia beard/Jonelle/Fanismitting on: 1 08:54 AM EST History and Physical Notes * HPI (History of Present Illness) Category Sub-Category Detail Notes Telehealth Location of [facility] rendering services:: {...} [address] [place] [address] Location of patient:: address listed in demographics [...]
--- OUTSIDE RECORDS SUMMARY | 2025-02-15 04:00 | XMS_ITS ---
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 Anderson Mcnally III Unavailable Allergies Allergen (clinical drug ingredient) Drug/Non Drug Allergy documented on EMR Reaction Allergy Type Onset Date Status No Known Drug Allergy Unknown Drug Allergy Active REASON FOR VISIT Chronic leukopenia, Discoid lupus, Possible mixed connective tissue disorder, Seasonal allergies, Hypertension Medications Medication SIG (Take, Route, Frequency, Duration) Notes Start Date End Date Status Vitamin D3 250 MCG (99529 UT) 1 capsule Orally Once a day Active amLODIPine Besylate 2.5 MG 1 tablet Oral ly Once a day Active Betamethasone Dipropionate 0.05 % 1 application to affected area Externally Once a day Active Clobetasol Propionate 0.05 % APPLY TO AFFECTED AREAS ON SCALP EVERY MORNING AND EVENING NEEDED FOR ITCHINESS AND FLARES External Active Social History Tobacco Use: Social History [...] Non-User Ex-cigaret te smoker Vital Signs Temperature 98.6 degrees Fahrenheit 02/16/20 25 Blood pressure systolic 118 mm Hg 02/16/20 25 Blood pressure diastolic 69 mm Hg 025 Heart Rate 84 /min 02/15/2025 Height 68 in 02/15/2025 Weight 139 lbs 02/15/2025 BMI 21.13 kg/m2 02/15/2025 Encounters Encounter Location Date Provider Diagnosis Anderson Lyn III, MD [address] [place] [address] [place] [address] 02/15/2025 Anderson Lyn Leukopenia D72.819 ; Discoid lupus L93.0 ; Alopecia areata L63.9 ; Seasonal allergies J30.2 ; Essential hypertension I10 and Former smoker Z87.891 Assessments Encounter Date Diagnosis (ICD Code) Assessment Notes Treatment Notes Treatment Clinical Notes 02/15/2025 Leukopenia (ICD-10 - D72.819) Her total white blood cell count is 3000.. The differential is remarkable for a slightly diminished number of neutrophils and a slightly diminished number of lymphocytes.. She has had no infections. Surveillance was continued.An ultrasound of the spleen was noted to see if it has increased in size causing a further decline in the white blood cell 02/15/2025 Discoid lupus (ICD-10 - L93.0) She is being evaluated by rheumatology. Her total protein is elevated to 9.3 but there are no monoclonal antibodies found on serum protein electrophoresis. The antibodies against single-stranded DNA are positive. 02/15/2025 Alopecia areata (ICD-10 - L63.9) He says this has resolved. 02/15/2025 Seasonal allergies (ICD-10 - J30.2) She has had no rhinitis yet this year. She is preparing for pollen season. 02/15/2025 Essential hypertension (ICD-10 - I10) Her blood pressure is currently in the normal range and no change in her regimen as needed. 02/15/2025 Former smoker (ICD-10 - Z87.891) We formulated a plan to prevent relapse and times of stress and illness. Plan Of Treatment Medication Medication Name Sig Start Date Stop Date Notes Vitamin D3 250 MCG (32192 UT) 1 capsule Orally Once a day amLODIPine Besylate 2.5 MG 1 tablet Orally Once a day Betamethasone Dipropionate 0.05 % 1 application to affected area Externally Once a day Clobetasol Propionate 0.05 % APPLY TO AF FECTED AREAS ON SCALP EVERY MORNING AND EVENING NEEDED FOR ITCHINESS AND FLARES External Pending Test Test Name Order Date PROFILE, RANDOM (COMPREHENSIVE METABOLIC ) 02/15/2025 CBC w DIFF 02/15/2025 Next Appt Details Follow Up: 9 months, Reason: OV review labs Provider Name:Anderson Lyn , 11/29/2025 09:00:00 AM, [address] [place] [address] [place], [address], Progress Notes * Zhanna CARTERDOB:1965 (59 yo F)Acc No.[id number]:02/15/2025 Progress Notes Patient: Zhanna BRO Provider: Letitia Lyn MD :1965 A ge:59 Y S ex:Female Date:02/15/2025 Address:[address] [place] [address] NIMO [id number] Pcp:Jose Montgomery MD Subjective: * Chief Complaints: * C hronic leukopeniaDiscoid lupusPossible mixed connective tissue disorderSeasonal allergiesHypertension * HPI: C OVID-19 Screening: She returns to [facility] office for a periodic scheduled visit to review her chronic leukopenic. Since her last visit she has been healthy and well with no serious infections. She has had no bleeding or blood clots. She is preparing for allergy season. Her lupus has been well controlled. Her rheumatologists has said that she may have mixed connective tissue disease.This is a diagnosis being evaluated. She has no new pains. Her recent blood work was reviewed with her.Blood work done 2024 showed a white blood cell count of 3000 with 1100 lymphocytes and 1900 neutrophils, Both of which are slightly low. Her hematocrit was slightly low at 39.1 with a mean cell volume of 87.5. The platelets were 242 glucose 90 BUN 11 creatinine 1.0. Questions H ave you had any new onset fever, chills, cough, congestion, sore throat, shortness of breath, muscle aches? N o * ROS: G eneral/Constitutional: pain [...] enies. D iarrhea d enies. H eartburn o ccasional. N ausea d enies. R ectal bleeding [...] Tobacco Non-User E x-cigarette smoker H er apaul dided of bladder cancer April 2023. They have no children. 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 She is not a Nondenominational. * Medications: T akingVitamin D3 250 MCG (38831 UT) Capsule 1 capsule Orally Once a day Clobetasol Propionate 0.05 % Gel APPLY TO AFFECTED AREAS ON SCALP EVERY MORNING AND EVENING NEEDED FOR ITCHINESS AND FLARES External Betamethasone Dipropionate 0.05 % Cream 1 application to affected area Externally Once a day amLODIPine Besylate 10 MG Tablet 1 tablet Orally Once a day Medication List reviewed and reconciled with the patientTaking Vitamin D3 250 MCG (10907 UT) Capsule 1 capsule Orally Once a day Taking Clobetasol Propionate 0.05 % Gel APPLY TO AFFECTED AREAS ON SCALP EVERY MORNING AND EVENING NEEDED FOR ITCHINESS AND FLARES External Taking Betamethasone Dipropionate 0.05 % Cream 1 application to affected area Externally Once a day Taking amLODIPine Besylate 10 MG Tablet 1 tablet Orally Once a day Medication List reviewed and reconciled with the patient * Allergies: N o Known Drug Allergyno[Allergies Verified] Objective: * Vitals: H t: 68, Wt: 139, BMI:21.13, BP: 118/69, HR: 84, Temp: 98.6, Wt-k.05. * Examination: G eneral Examination: GENERAL APPEARANCE: p leasant, well nourished, well developed, in no acute distress, calm and relaxed, woman. HEAD: a traumatic, normocephalic. EYES: e [...] LUNGS: c lear to auscultation . BREASTS: N ot examined. ABDOMEN: b owel sounds normal, [...] :Her total white blood cell count is 3000.. The differential is remarkable for a slightly diminished number of neutrophils and a slightly diminished number of lymphocytes.. She has had [...] against single-stranded DNA are positive. 3 . A lopecia areata - L63.9 N otes :He says this has resolved. 4 . S easonal allergies - J30.2 N otes :She has had no rhinitis yet this year. She is preparing for pollen season. 5 . E ssential hypertension - I10 N otes :Her blood pressure is currently in the normal range and no change in her regimen as needed. 6 . F ormer smoker - Z87.891 N otes :We formulated a plan to prevent relapse and times of stress and illness. Plan: * Treatment: 2. O thers Continue amLODIPine Besylate Tablet, 2.5 MG, 1 tablet, Orally, Once a day. * Procedure Codes: * Preventive Medicine: Counseling: S moking/Tobacco Use Patient counseled on the dangers of tobacco use and urged to quit. 0 02/15/2025 * Follow Up: 9 months (Reason: OV review labs) * Images: * Sign off status: Completed true * Provider: Letitia Lyn MD Date: 0 02/15/2025 Generated for Dasia beard/Jonelle/eTkavinsmitting on: 1 08:54 AM EST History and Physical Notes * HPI (History of Present Illness) Category Sub-Category Detail Notes COVID-19 Screening Questions Have you had any new onset fever, chills, cough, congestion, sore throat, shortness of breath, muscle aches?: No Examination Category Sub-Category Detail Notes General Examination GENERAL APPEARANCE: pleasant , well nourished, well developed, in no acute distress, calm and relaxed, woman HEAD: atraumatic, normocep halic EYES: eomi, [...] lesion s, anicteric PERIPHERAL PULSES: normal BREASTS: Not examined MUSCULOSKELETAL: extremities unremark able, no clubbing, cyanosis or edema LYMPH NODES: no enlarged lymph no chandrika,spleen normal RECTAL EXAM: not examined PSYCH: alert, oriented ORAL CAVITY: normal, unremarkable
--- OUTSIDE RECORDS SUMMARY | 2025-11-20 08:54 | XMS_ITS | Patient Health Record ---
Author Organization Anderson Lyn III, MD Address [address] [place] [address] DR ADAN Erich ANAHI [place]ET[place] [address] Care Team Providers Care Maxillofacial Prosthetics Dentist Name Role Phone Jose Montgomery MD Primary Care Provider Berta Dr. Anderson Gil III Unavailable [phone] Allergies Allergen (clinical drug ingredient) Drug/Non Drug Allergy documented on EMR Reaction Allergy Type Onset Date Status No Known Drug Allergy Unknown Drug Allergy Active Reason For Referral No Information Medications Medication SIG (Take, Route, Frequency, Duration) Notes Start Date End Date Status Vitamin D3 250 MCG (85557 UT) 1 capsule Orally Once a day [...] Problem Status W/U Status Risk Notes Problem 8252549 Former smoker (Z87.891) Active confirmed We formulated a plan to prevent relapse and times of stress and illness. Problem 139764229606143 Right hip pain (M25.551) Active confirmed was serge disc Problem 10796993 Essential hypertension (I10) Active confirmed Her blood pressure is currently in the normal range and no change in her regimen as needed. Problem 20216610 Leukopenia (D72.819) Active confirmed Her total white blood cell count is 3000.. The differential is remarkable for a slightly diminished number of neutrophils and a slightly diminished number of lymphocytes.. She has had no infections. Surveillance was continued.An ultrasound of the spleen was noted to see if it has increased in size causing a further decline in the white blood cell Problem 356248718 History of iron deficiency anemia (Z86.2) Active confirmed There is currently no sign of iron deficiency and she does not require iron supplementatio n. 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 Her total protein is elevated to 9.3 but there are no monoclonal antibodies found on serum protein electrophoresi s. The antibodies against single-strande d DNA are positive. Problem 27732359 Alopecia areata (L63.9) Active confirmed He says this has resolved. Problem 407272031 Seasonal allergies (J30.2) Active confirmed She has [...] Date Provider Diagnosis Anderson Lyn III, MD [address] [place] [address] DR MOREL, DEMETRA [address] 02/15/2025 Anderson Lyn Leukopenia D72.819 ; Discoid [...] Provider Name:Anderson Lyn , 11/29/2025 09:00:00 AM, [address] [place] [address] DR, [place] [address], [place], [address], Insurance Providers Payer Name Payer Address Payer Phone Subscriber Number Group Number Insured Name Patient Relationship to Insured Coverage Start Date Coverage End Date [address] [facility] [place] [phone] [id number] Zhanna Carter Self - patient is the insured Medical (General) History Medical History History ICD Code Discoid Lupus Alopecia areata 704.00 essential hypertension seasonal allergies benign fibroma breast iron deficiency anemia 2010 corrective lenses chronic leukopenia Surgical History Surgery Date(Month/Year) ultrasound-guided biopsy left breast, 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 Lee 09/2010
--- OUTSIDE RECORDS SUMMARY | 2025-11-20 08:54 | XMS_ITS | Patient Health Record ---
Author Organization [facility] Address [address] [place] [address] Care Team Providers Care Frame Table Operator Helper Name Role Phone Valentina (RETIRED) Joes DAVIS Primary Care Provide r Anderson Alonso Unavailable [phone] Allergies No Known Allergies Reason For Referral [...] Miscellaneous: Marital status: Occupation: Not working curr [employer] Notes: Nonsmoker, occasional glass of wine Problems Problem Type SNOMED Code ICD Code Onset Dates Problem Status W/U Status Risk Notes Problem Colon cancer screening (471441950) Colon cancer screening (Z12.11) Active confirmed Problem Diverticular disease of colon (551052308) Diverticulosis of large intestine without perforation or abscess without bleeding (K57.30) Active confirmed Problem Constipation (58688644) Constipation, unspecified constipation type (K59.00) Active confirmed Plan Of Treatment Pending Test Test Name Order Date Pathology 03/15/2023 Future Test Test Name Order Date COLONOSCOPY 12/22/2022 Insurance Providers Payer Name Payer Address Payer Phone Subscriber Number Group Number Insured Name Patient Relationship to Insured Coverage Start Date Coverage End Date [facility] [address] [place] [phone] [id number] AMNA SALINAS Self - patient is the insured Medical (General) History Medical History History ICD Code Hypertension Denies MS,DM,CVA,Lung disease,renal dise ase Negative colonoscopy [place] [address] Guy leach Surgical History Surgery Date(Month/Year)
[2025-11-20 10:47] LABS: Hematocrit 39.8 % (37.0-47.0); Hemoglobin 13.1 g/dl (12.0-16.0); Imm Gran Abs Auto 0.00 X10*3/uL (0.00-0.03); Imm Gran Pct Auto 0.0 % (0.0-0.4); Lymphocytes Absolute Auto 0.8 X10*3/uL (1.2-4.9); Mean Corpuscular HGB Conc 32.9 g/dl (31.0-35.0); Mean Corpuscular Hemoglobin 29.0 pg (27.0-33.0); Mean Corpuscular Volume 88.2 fL (80.0-98.0); NRBC Abs Auto 0.000 X10*3/uL (0.0-0.012); NRBC Pct Auto 0.0 /100WBC (0.0-0.2); Platelet Count 252 X10*3/uL (160-400); Red Blood Count 4.51 X10*6/uL (4.20-5.50); White Blood Count 2.2 X10*3/uL (4.8-10.8)
[2025-11-20 11:05] LABS: Alanine Aminotransferase 31 U/L (0-31); Albumin Level 4.3 g/dL (3.5-5.0); Alkaline Phosphatase 72 U/L (39-117); Anion Gap 11 (12-20); Aspartate Amino Transferase 29 U/L (5-31); Blood Urea Nitrogen 12 mg/dL (9-16); Calcium 9.5 mg/dL (8.4-10.2); Carbon Dioxide 25 mmol/L (22-29); Chloride 103 mmol/L (96-108); Estimated Glomerular Filt Rate > 60; Potassium 3.9 mmol/L (3.3-5.1); Sodium 135 mmol/L (135-145); Total Protein 7.7 g/dL (6.5-8.0)
== END 2025-11-20 07:16 | disposition home or self-care (01) ==
LOC: HO.HMGCLDS 07:15
PROVIDERS: PCP Physician Assistant Medical; Visit Provider Internal Medicine Medical Oncology
DX: D72.819 Decreased white blood cell count, unspecified (principal)
CPT/HCPCS: 36415; 80053; 85025